=== PATIENT | male | born 1955 | race Caucasian/White ===

== ENCOUNTER 2016-10-26 08:26 | Inpatient (IN) ==
[2016-10-26] MEDS ORDERED: Ondansetron 4 MG/2 ML VIAL IVP PRN (10:56)
[2016-10-26] MEDS ORDERED: Acetaminophen 325 MG TABLET PO PRN (10:56)
[2016-10-26] MEDS ORDERED: Naloxone 0.4 MG/ML INJ IVP PRN (10:56)
[2016-10-26] MEDS ORDERED: 0.9 % Sodium Chloride 1,000 ML IVC SCH (11:00)
[2016-10-26] MEDS ORDERED: Acetylcysteine 10% 2 ML INHSOL IH SCH (11:00)
[2016-10-26] MEDS ORDERED: Ipratropium/Albuterol Neb 3 ML IH PRN (12:57)
--- NOTE | 2016-10-26 13:11 | Internal Med History&Physical ---
Date of Encounter: 10/26/16 Time of Encounter: 11:30 Assessment and Plan (1) Pneumonia Current visit: Yes Status: Acute patient completed a 7-day course of Levofloxacin as outpatient without any improvement of symptoms. CTA of chest revealed diffuse mucoid impaction in the right upper and lower lobes with right upper lower lobe bronchus narrowing and volume loss in the right upper lobe. IV ceftriaxone. albuterol/atrovent/mucomyst nebs mucinex pulmonology team consulted IV fluids. Qualifiers: Pneumonia type: due to unspecified organism Laterality: right Lung location: upper lobe of lung Qualified Code(s): J18.1 - Lobar pneumonia, unspecified organism (2) Mucus plugging of bronchi Current visit: Yes Status: Acute right upper and lower lobes. plan as above. (3) Acute hyponatremia Current visit: Yes Status: Acute Secondary to dehydration from infection +/- SIADH from PNA. IV fluids Close monitoring of sodium. Repeat BMP in the afternoon. Check osmolality, uric acid, urine sodium and urine osmolality. (4) COPD exacerbation Current visit: Yes Status: Acute mild albuterol/atrovent nebs. budesonide nebs IV ceftriaxone (5) HTN (hypertension) Current visit: Yes Status: Acute Adequate blood pressure. Holding home dose of lisinopril. Qualifiers: Hypertension type: essential hypertension Qualified Code(s): I10 - Essential (primary) hypertension Internal Medicine - H&P: HPI Chief complaint: Progressive shortness of breath and productive cough for one month. Admitted From: Home Plans for Post Hospital Care: Home History of present illness: Mr. Sierra is a 61 year old male with past medical history of COPD, and hypertension who has been dealing with some respiratory infection for the past month. He describes as a month ago she developed upper respiratory symptoms followed by productive cough and shortness of breath. 2 weeks ago. His primary care physician diagnosed him with pneumonia and he completed a 7 day treatment of levofloxacin. His symptoms persisted and he went today to [facility] where he had a CT angiography of the chest showing diffuse mucoid impaction in the right upper and lower lobes with right upper lower lobe bronchus narrowing and volume loss in the right upper lobe. WBC 13.7 330 sodium 126 potassium 4 chloride 91 glucose 118 B1 14 creatinine 0.86 albumin 3.8. Normal LFTs GFR 29 ABGs shows pH 7.4 a PCO2 39 PO2 73 EKG showed normal sinus rhythm heart rate 55. He was transferred to our hospital for pulmonology consultation and possible bronchoscopy. He also reports left-sided chest pain that started a week after having severe cough spells. Patient denies any fever, hemoptysis, and no pain, syncope, headache, urinary complaints, lower extremity edema, orthopnea, PND, headache or focal deficits. 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 Past Med Surg Social Fam HX - Past Medical History Medical history: COPD, hypertension Psychiatric history: no psych history - Social History Smoking Status: Former smoker Smokeless Tobacco Status: No Alcohol use: occasionally Drug use: none - Family History Mother Hx Family Cardiac Disorders: Yes (CHF) Hx Family Endocrine Disorder: Yes (DM) Internal Medicine - H&P: Meds Albuterol Sulfate [Albuterol Inhaler] 1 puff IH PRN PRN 11/04/15 [History] Digoxin [Lanoxin] 0.125 mg PO DAILY 11/04/15 [History] Guaifenesin [Mucinex] 600 mg PO BID 11/04/15 [History] Hydrochlorothiazide 25 mg PO DAILY 11/04/15 [History] Lisinopril [Zestril] 10 mg PO DAILY 11/04/15 [History] Naproxen [Naprosyn] 500 mg PO BID #30 tablet 11/04/15 [Rx] Doxycycline 100 mg PO BID #13 capsule 08/09/16 [Rx] Meloxicam [Meloxicam] 08/09/16 [History] PredniSONE 40 mg PO DAILY 4 Days 08/09/16 [Rx] Allergies No Known Allergies Allergy (Verified 11/04/15 13:15) All Systems PM: A 10-system review of systems was performed and is negative for pertinent findings except as documented above in the HPI. - Constitutional Vitals: Temp Pulse Resp BP Pulse Ox 98.4 F 90 18 122/80 95 10/26/16 10:35 10/26/16 10:35 10/26/16 10:35 10/26/16 10:35 10/26/16 10:35 General appearance: Present: cooperative, A&O X 3, pleasant, no acute distress, answers questions appropriately - Eye Eye exam: Present: PERRL. Absent: sclera anicteric - ENT ENT exam: Present: mucous membranes dry - Neck Neck exam general surgery: Present: supple, trachea midline. Absent: lymphadenopathy - Respiratory Respiratory exam: Present: decreased breath sounds, rhonchi, wheezes - Cardiovascular Cardiovascular exam: Present: RRR - GI/Abdominal GI/Abdominal exam: Present: normal bowel sounds, soft. Absent: distended, tenderness - Extremities Exam Extremities exam: Present: radial pulses palpable and symetrical. Absent: joint swelling, pedal edema - Back Exam Back exam: Absent: CVA tenderness (L), CVA tenderness (R) - Neurological Exam Neurological exam: Present: alert, oriented X3, no focal deficits, strengths equal and symetr throughout. Absent: facial droop, speech deficit - Skin Skin exam: Present: dry. Absent: rash
[2016-10-26] MEDS: Ipratropium/Albuterol Neb 3 ML IH SCH ×3 (13:18→20:52)
--- NOTE | 2016-10-26 15:10 | Pulmonology Consult Note ---
<Dolores Berry - Last Filed: 10/26/16 14:58> Date of Encounter: 10/26/16 Time of Encounter: 14:58 Assessment and Plan (1) Pneumonia Current Visit: Yes Status: Acute Pt was treated for pneumonia two weeks ago by PCP with levaquin and prednisone without relief of symptoms Scheduled bronchodilators Prednisone 40mg daily Will obtain sputum cultures Consult IR for thoracentesis for left pleural effusion CTA from outside facility revealed diffuse mucoid impaction in the right upper and lower lobes with right upper lower lobe bronchus narrowing and volume loss in the right upper lobe Troponin on initial blood work was normal, will obtain BNP and Echocardiogram Currently on IVF for hydration IV Ceftriaxone for antibiotic coverage Qualifiers: Pneumonia type: due to unspecified organism Laterality: right Lung location: upper lobe of lung Qualified Code(s): J18.1 - Lobar pneumonia, unspecified organism (2) COPD exacerbation Current Visit: Yes Status: Acute Scheduled Bronchodilators (3) Mucus plugging of bronchi Current Visit: Yes Status: Acute Due to mucus plugging of bronchi found on CTA at outside facility, will plan for bronchoscopy tomorrow Risks and benefits of bronchoscopy were discussed with pt and at bedside Will obtain consent for procedure (4) HTN (hypertension) Current Visit: Yes Status: Acute Management per primary team Qualifiers: Hypertension type: essential hypertension Qualified Code(s): I10 - Essential (primary) hypertension (5) DVT prophylaxis Current Visit: Yes Status: Acute History of Present Illness Consult date: 10/26/16 Requesting physician: Malena Isaac Reason for consult: COPD, pneumonia, pleural effusion Chief complaint: Shortness of Breath History of present illness: Mr. Sierra is a 61 year old male who has history of COPD, HTN, BPH, who presents from outside facility with left sided chest pain and shortness of breath. Pt reports he was diagnosed with pneumonia two weeks ago by his PCP at which time he was treated with Levaquin and prednisone. He states he was compliant with this medication regimen and had no relief of symptoms. He called his PCP one week ago due to not experiencing any improvement, a chest x- ray was ordered and no acute abnormalities were reported at that time. He states that the pain became more intense in the middle of the night rating it a constant 10/10 at which time he reported to the outside facility. Pt reports he continues to have a productive cough with thick yellow sputum, and left sided pain which extends from the front chest wall, around to the back. He also admits to pain just inferior to his rib cage. He is unable to take a deep breath due to pain with deep inspiration. Pt denies fever/chills, abdominal pain, nausea, vomiting, diarrhea, headache, weight loss/gain, or hemoptysis. Past Med Surg Social Fam HX - Past Medical History Medical history: COPD, hypertension Psychiatric history: no psych history - Social History Smoking Status: Former smoker Smokeless Tobacco Status: No Alcohol use: occasionally Drug use: none - Family History Mother Hx Family Cardiac Disorders: Yes (CHF) Hx Family Endocrine Disorder: Yes (DM) Medications and Allergies Hydrochlorothiazide 25 mg PO DAILY 11/04/15 [History] Lisinopril [Zestril] 10 mg PO DAILY 11/04/15 [History] Meloxicam [Meloxicam] 15 mg PO DAILY 08/09/16 [History] Albuterol Sulfate [Ventolin Hfa] 2 puff IH Q4H PRN 10/26/16 [History] Aspirin 81 mg PO DAILY 10/26/16 [History] Budesonide/Formoterol 160/4.5 [Symbicort 160/4.5] 2 puff IH BID 10/26/16 [ History] Doxazosin [Cardura] 4 mg PO HS 10/26/16 [History] Hydrocortisone 1% CREAM [Cortaid] 1 appl TP BID PRN 10/26/16 [History] Ipratropium/Albuterol Neb [Duoneb] 3 ml IH Q6HR PRN 10/26/16 [History] Omeprazole [PriLOSEC] 20 mg PO DAILY 10/26/16 [History] Allergies No Known Allergies Allergy (Verified 11/04/15 13:15) All Systems: A 10-system review of systems was performed and is negative for pertinent findings except as documented above in the HPI. - Constitutional Constitutional: no anorexia, no chills, no fever(s), no headache(s), no weight gain, no weight loss - EENT Eyes: no loss of vision Ears: no decreased hearing Nose, mouth and throat: sore throat (secondary to supplemental oxygen by nasal cannula), no dizziness, no hoarseness, no nasal discharge - Cardiovascular Cardiovascular: chest pain, no edema, no radiating jaw, neck or arm pain, no palpitations - Respiratory Respiratory: cough, wheezing, pain on inspirtation, no hemoptysis - Gastrointestinal Gastrointestinal: no abdominal pain, no diarrhea, no hematemesis, no melena, no nausea, no vomiting - Musculoskeletal Musculoskeletal: other (Pain over left rib cage, worse with movement and deep inspiration) - Integumentary Integumentary: no erythema, no jaundice - Neurological Neurological: no confusion, no convulsions, no numbness, no syncope, no tingling Physical Examination General appearance: no acute distress Eyes: nonicteric ENT: oropharynx moist Neck: supple Effort: mildly labored (Especially following movement) Auscultation: bilateral: wheezes, rhonchi Cardiovascular: regular rate and rhythm Gastrointestinal: normoactive bowel sounds, soft, non-distended Integumentary: normal Extremities: no cyanosis, no edema, no clubbing, pink and warm, pulses normal Musculoskeletal: no deformities normal mental status, non-focal exam mood appropriate, affect normal Results - Clinical Findings Intake & Output: Intake & Output 10/25/16 10/26/16 10/26/16 23:59 07:59 15:59 Output Total 600 / 600 Balance -600 / -600 Consult Discharge Plan - Plan Referrals: Mehrdad Diego MD [Primary Care Provider] - <Ck Ghosh W - Last Filed: 10/26/16 16:05> Date of Encounter: 10/26/16 All Systems: A 10-system review of systems was performed and is negative for pertinent findings except as documented above in the HPI. Results - Clinical Findings Intake & Output: Intake & Output 10/25/16 10/26/16 10/26/16 23:59 07:59 15:59 Intake Total 240 / 240 Output Total 600 / 600 Balance -360 / -360 - Attending Attestation I examined this patient and my medical decision-making was reviewed with the FOUNDRY HELPER/PA/Advanced Practice Nurse/Resident Physician. I agree with the documented findings, disposition and treatment plan as described except to the extent set forth below. 61yo with COPD with acute exacerbation presenting with pleuritic chest pain possibly s/t left pleural effusion (?parapnemonic) with concern for PNA. CTA negative for filling defects notable with mucous impaction, ?R Hilar soft tissue density with RUL bronchus narrowing, chronic changes of RU/RML bronchiectasis and b/l emphysematous changes. Patient has a remote history TB treated (for >1 year) in the past. Recs: Check blood/sputum cultures Also check BNP/ECHO cover empirically with ABx (Agumentin BID I see no reason that PO should not be sufficient) patient has already had >1 week coverage for atypical organisms BPT via (RT) [place]bs Q4-6- stop NAC Prednisone 40mg daily NPO at midnight for bronchoscopy Consult IR for U/S guided thoracentesis (pleural fluid studies have been ordered ) A bronchoscopy is recommended. The procedure , risks, benefits, complications, and expected outcomes have been reviewed. Benefits of diagnosis, as well as risks to include bleeding, infection, pneumothorax which may require surgical intervention, and in a small population. The patient is aware that sometimes test is nondiagnostic. Discussed with patient and agrees to proceed.
[2016-10-26] MEDS: Budesonide Neb 0.5 MG/2 ML IH SCH ×2 (15:22→20:52)
[2016-10-26 15:56] LABS: Total Protein 6.9 g/dL (6.0-8.3)
[2016-10-26 17:57] LABS: Sodium, Urine < 20.0 mEq/L
[2016-10-26 18:11] LABS: BUN/Creatinine Ratio 15 (6-26); Blood Urea Nitrogen 11 mg/dL (8-26); Calcium 9.5 mg/dL (8.6-10.8); Carbon Dioxide 24 mEq/L (19-29); Chloride 96 mEq/L (98-109); Glucose 131 mg/dL (70-99); Osmolality,Calculated 271 (280-300); Potassium 4.5 mEq/L (3.5-4.5); Sodium 130 mEq/L (136-145); eGFR For African Americans > 60 (> 60); eGFR For Non-African Americans > 60 (> 60)
[2016-10-26 18:34] LABS: Osmolality,Urine 254 mOsm/kg (300-1090)
[2016-10-27] MEDS: Ipratropium/Albuterol Neb 3 ML IH SCH ×6 (00:37→20:47)
[2016-10-27] MEDS: 0.9 % Sodium Chloride 1,000 ML IVC SCH ×4 (00:55→23:37)
[2016-10-27 04:52] LABS: Basophils % 0.1 %; Eosinophils % 0.1 %; Hematocrit 29.8 % (37.5-50.1); Hemoglobin 10.6 g/dL (12.9-16.9); Immature Granulocytes % 0.9 % (0-4); Lymphocytes % 7.1 %; Mean Corpuscular HGB Conc 35.6 g/dL (31.6-35.5); Mean Corpuscular Hemoglobin 34.1 pg (28.0-33.3); Mean Corpuscular Volume 95.8 fL (83.0-100.0); Mean Platelet Volume 9.3 fL (9.4-12.4); Monocytes % 7.1 %; Neutrophils # 11.5 K/mcL (1.6-8.9); Platelet Count 256 K/mcL (140-400); Red Blood Count 3.11 M/mcL (4.19-5.50); Red Cell Distribution Width 12.3 % (11.5-14.5); Segmented Neutrophils % 84.7 %
[2016-10-27 04:59] LABS: INR 1.1; Prothrombin Time 11.7 Seconds (9.4-12.1)
[2016-10-27 05:13] LABS: BUN/Creatinine Ratio 15 (6-26); Blood Urea Nitrogen 9 mg/dL (8-26); Calcium 8.9 mg/dL (8.6-10.8); Carbon Dioxide 23 mEq/L (19-29); Chloride 99 mEq/L (98-109); Glucose 116 mg/dL (70-99); Osmolality,Calculated 272 (280-300); Phosphorous 2.9 mg/dL (2.3-4.7); Sodium 131 mEq/L (136-145); eGFR For African Americans > 60 (> 60); eGFR For Non-African Americans > 60 (> 60)
--- NOTE | 2016-10-27 07:11 | Pulmonology Progress Note ---
<Manuel Crespo - Last Filed: 10/27/16 07:25> Date of Encounter: 10/27/16 Time of Encounter: 07:08 Assessment and Plan (1) Pneumonia Current Visit: Yes Status: Acute Patient treated as outpatient by PCP for suspected pneumonia with levaquin and prednisone x 2 weeks prior to admission. WBC this morning at 13.6, Vitals stable, borderline tachycardia, satting 96% on 2L Exam revealed diffuse wheezing ad thick rhonchi bilaterally. Continue with antibiotics, breathing treatments, and steroids. Recommend Augmentin due to added benefit of anaerobic coverage in respiratory tract. Qualifiers: Pneumonia type: due to unspecified organism Laterality: right Lung location: upper lobe of lung Qualified Code(s): J18.1 - Lobar pneumonia, unspecified organism (2) COPD exacerbation Current Visit: Yes Status: Acute COPD exacerbation likely secondary to pneumonia vs mucus plug. Continue per plan in assessment above (3) Mucus plugging of bronchi Current Visit: Yes Status: Acute CTA done at [place] revealed diffuse mucoid impaction in right upper and lower lobes with riht upper lower lobe bronchus narrowing and volume loss in the right upper lobe. Proceed with bronchoscopy Subjective Principal diagnosis: Pneumonia, COPD exacerbation, Mucus plug Interval history: Patient reports doing well overnight. Patient reports improved breathing/ decreased shortness of breath throughout the evening and improving cough. Denies fevers, chills, sweats, headache, dizziness, changes in vision or hearing , nausea, vomiting, chest pain, abdominal pain, changes in bowels or bladder, weakness, or loss of sensation. Objective PUL Vital signs: Last Vital Signs Temp 98.2 F 10/27/16 03:28 Pulse 93 10/27/16 03:28 Resp 20 10/27/16 04:37 BP 132/84 10/27/16 03:28 Pulse Ox 96 10/27/16 04:37 General appearance: alert Eyes: nonicteric ENT: oropharynx moist Neck: supple, no lymphadenopathy, no JVD Effort: mildly labored Auscultation: bilateral: wheezes, rhonchi Cardiovascular: regular rate and rhythm Gastrointestinal: normoactive bowel sounds, soft, non-tender, non-distended Integumentary: normal Extremities: no cyanosis, no edema, no clubbing, pink and warm, pulses normal Musculoskeletal: no deformities, ROM normal Gait: normal posture normal mental status, pupils equal and round, CN II-XII normal, motor strength normal and symmetric mood appropriate, affect normal Results - Laboratory Findings CBC and BMP: 10/27/16 03:43 10/27/16 03:43 PT/INR, D-dimer PT 11.7 Seconds (9.4-12.1) 10/27/16 03:43 Abnormal lab findings: Abnormal lab results WBC 13.6 K/mcL (4.3-11.1) H 10/27/16 03:43 RBC 3.11 M/mcL (4.19-5.50) L 10/27/16 03:43 Hgb 10.6 g/dL (12.9-16.9) L 10/27/16 03:43 Hct 29.8 % (37.5-50.1) L 10/27/16 03:43 MCH 34.1 pg (28.0-33.3) H 10/27/16 03:43 MCHC 35.6 g/dL (31.6-35.5) H 10/27/16 03:43 MPV 9.3 fL (9.4-12.4) L 10/27/16 03:43 Neutrophils # 11.5 K/mcL (1.6-8.9) H 10/27/16 03:43 Sodium 131 mEq/L (136-145) L 10/27/16 03:43 Creatinine 0.60 mg/dL (0.72-1.25) L 10/27/16 03:43 Glucose 116 mg/dL (70-99) H 10/27/16 03:43 Serum Osmolality 273 mOsm/kg (280-300) L 10/26/16 17:42 Calculated Osmolality 272 (280-300) L 10/27/16 03:43 Lactate Dehydrogenase 85 Units/L (159-327) L 10/26/16 15:10 Urine Osmolality 254 mOsm/kg (300-1090) L 10/26/16 17:34 - Clinical Findings Intake & Output: Intake & Output 10/26/16 10/26/16 10/27/16 15:59 23:59 07:59 Intake Total 340 / 340 Output Total 600 / 600 Balance -260 / -260 Weight 81.647 kg 80.5 kg Consult Discharge Plan - Plan Referrals: Mehrdad Diego MD [Primary Care Provider] - <Ck Ghosh W - Last Filed: 10/27/16 09:26> Date of Encounter: 10/27/16 Objective PUL Vital signs: Last Vital Signs Temp 97.9 F 10/27/16 07:00 Pulse 88 10/27/16 07:00 Resp 16 10/27/16 07:53 BP 142/84 10/27/16 07:00 Pulse Ox 95 10/27/16 07:53 Results - Laboratory Findings CBC and BMP: 10/27/16 03:43 10/27/16 03:43 PT/INR, D-dimer PT 11.7 Seconds (9.4-12.1) 10/27/16 03:43 Abnormal lab findings: Abnormal lab results WBC 13.6 K/mcL (4.3-11.1) H 10/27/16 03:43 RBC 3.11 M/mcL (4.19-5.50) L 10/27/16 03:43 Hgb 10.6 g/dL (12.9-16.9) L 10/27/16 03:43 Hct 29.8 % (37.5-50.1) L 10/27/16 03:43 MCH 34.1 pg (28.0-33.3) H 10/27/16 03:43 MCHC 35.6 g/dL (31.6-35.5) H 10/27/16 03:43 MPV 9.3 fL (9.4-12.4) L 10/27/16 03:43 Neutrophils # 11.5 K/mcL (1.6-8.9) H 10/27/16 03:43 Sodium 131 mEq/L (136-145) L 10/27/16 03:43 Creatinine 0.60 mg/dL (0.72-1.25) L 10/27/16 03:43 Glucose 116 mg/dL (70-99) H 10/27/16 03:43 Serum Osmolality 273 mOsm/kg (280-300) L 10/26/16 17:42 Calculated Osmolality 272 (280-300) L 10/27/16 03:43 Lactate Dehydrogenase 85 Units/L (159-327) L 10/26/16 15:10 Urine Osmolality 254 mOsm/kg (300-1090) L 10/26/16 17:34 - Clinical Findings Intake & Output: Intake & Output 10/26/16 10/27/16 10/27/16 23:59 07:59 15:59 Weight 81.647 kg 80.5 kg - Attending Attestation I examined this patient and my medical decision-making was reviewed with the CATEGORY DIRECTOR/PA/Advanced Practice Nurse/Resident Physician. I agree with the documented findings, disposition and treatment plan as described except to the extent set forth below. 1. CAP 2. Chronic Bronchiectasis with mucous plugging 3. COPD with acute exacerbation 4. Left Pleural Effusion Recs: 1. Would cover with broader anaerobic coverage pending pleural fluid studies ( consider Augmentin PO BID) 2. Cont airway clearance plan for bronch today 3. Cont BD's and enteral steroids 4. S/p Thoracentesis. f/u pleural fluid studies/cytology
[2016-10-27] MEDS: Budesonide Neb 0.5 MG/2 ML IH SCH ×2 (07:51→20:47)
[2016-10-27 10:33] LABS: Appearance of Body Fluid Cloudy (Clear); Volume of Body Fluid 100 mL
[2016-10-27] MEDS: predniSONE 20 MG TABLET PO SCH (10:36)
[2016-10-27] MEDS ORDERED: Lidocaine Viscous Oral Soln 15 ML SOLUTION ONE (10:52)
[2016-10-27] MEDS ORDERED: *HR* FentaNYL (PF) 100 MCG/2 ML VIAL ONE (10:52)
[2016-10-27] MEDS ORDERED: *HR* Midazolam HCl 5 MG/5 ML VIAL IVP ONE (10:52)
[2016-10-27] MEDS ORDERED: *HR* EPINEPHrine 1 MG/10 ML SYRINGE INTRATRACH PRN (10:53)
[2016-10-27] MEDS ORDERED: Tetracaine/Benzocaine/Butamben 200MG/SPRAY (100SPY/BOT) MM ONE (10:53)
[2016-10-27] MEDS ORDERED: Lidocaine Viscous Oral Soln 15 ML SOLUTION MM ONE (10:53)
--- NOTE | 2016-10-27 10:53 | Pre-Sedation Evaluation ---
Pre-sedation evaluation - Pre-sedation checklist Date of procedure: 10/27/16 Procedure: Bronchoscopy Recent Vitals: Last Vital Signs Temp 97.9 F 10/27/16 07:00 Pulse 88 10/27/16 07:00 Resp 16 10/27/16 07:53 BP 142/84 10/27/16 07:00 Pulse Ox 95 10/27/16 07:53 H&P (including ROS) documented in medical record: Yes Previous reaction to sedatives/anesthetics: No Dietary Status: NPO after Midnight Airway Assessment: Patient can open mouth completely, TMJ function normal Dentition: No loose teeth or bridges Possible difficult airway: Yes If Yes;: Enlarged neck circumference, short neck ASA Classification *see protocol: CLASS II-Mild systemic disease Plan of Care: Pt appropriate candidate for procedure/moderate/conscious sedation , Risks/benefits of procedure/sedation discussed w/ patient/family
[2016-10-27] MEDS ORDERED: 0.9 % Sodium Chloride 1,000 ML IVC SCH (11:00)
--- NOTE | 2016-10-27 11:05 | IR Procedure Note ---
Date of procedure: 10/27/16 Consent Obtained: Written consent Timeout: Correct patient and procedure verified, Correct site verified, Time out performed, Skin prep completed Indications: lt effusion Procedure Performed: thoracentesis Site/Technique: left Results/Findings: bloody effusion Estimated blood loss (cc): 0 Complications: None; Tolerated procedure well Post Procedure Treatment Plan: CXR
[2016-10-27] MEDS: *HR* FentaNYL (PF) 100 MCG/2 ML VIAL IVP PRN ×2 (11:32→18:57)
[2016-10-27] MEDS: *HR* Midazolam HCl 5 MG/5 ML VIAL IVP PRN ×2 (11:32→18:52)
--- NOTE | 2016-10-27 14:01 | Internal Med Progress Note ---
Date of Encounter: 10/27/16 Time of Encounter: 10:00 - Assessment and plan (1) Mucus plugging of bronchi Current Visit: Yes Status: Acute Assessment and plan: Neurology on board, plan is for bronchoscopy with BAL later today. Failed outpatient therapy. (2) Pneumonia Current Visit: Yes Status: Acute Assessment and plan: Continue Rocephin and add Augmentin per pulmonology recommendations. Plan is for thoracentesis followed by bronchoscopy with BAL later today. Failed outpatient therapy with Levaquin and prednisone. Mild leukocytosis noted. Vital signs stable with mild tachycardia. He is stable on 2 L per nasal cannula. Continue ceftriaxone with the addition of Augmentin per pulmonology recommendations. Pulmonology and IR both on board. Qualifiers: Pneumonia type: due to unspecified organism Laterality: right Lung location: upper lobe of lung Qualified Code(s): J18.1 - Lobar pneumonia, unspecified organism (3) Pleural effusion Current Visit: Yes Status: Acute Assessment and plan: IR onboard- plan is for thoracentesis later today. (4) Acute hyponatremia Current Visit: Yes Status: Chronic Assessment and plan: Chronic since 2014. Also associated with hyperosmolality, patient with poor by mouth intake secondary to ongoing pneumonia/mucous plugging. We will continue to advance his diet as he tolerates. (5) COPD exacerbation Current Visit: Yes Status: Acute (6) DVT prophylaxis Current Visit: Yes Status: Acute Assessment and plan: Subcutaneous heparin ordered (7) HTN (hypertension) Current Visit: Yes Status: Chronic Assessment and plan: Controlled, will continue to trend and adjust medications as indicated. Qualifiers: Hypertension type: essential hypertension Qualified Code(s): I10 - Essential (primary) hypertension (8) Former tobacco use Current Visit: Yes Status: Chronic - Subjective Interval history: Patient seen and examined prior to his procedures. On examination, patient is sitting upright in bed. Patient alert and oriented 3 and states he is not currently in any pain. He states he is not really short of breath unless he gets up from his bed. He denies concerns or questions regarding his upcoming procedures. - Constitutional Vitals: Temp Pulse Resp BP Pulse Ox 97.6 F 96 16 138/88 94 L 10/27/16 12:48 10/27/16 12:48 10/27/16 12:48 10/27/16 12:48 10/27/16 12:48 General appearance: Present: cooperative, A&O X 3, pleasant, no acute distress, answers questions appropriately - Head Head exam: Present: atraumatic, normocephalic - Eye Eye exam: Present: PERRL, conjuntiva pink, sclera anicteric Pupils: Present: PERRL - Neck Neck exam general surgery: Present: supple, trachea midline. Absent: lymphadenopathy - Respiratory Respiratory exam: Present: accessory muscle use, decreased breath sounds, rhonchi, wheezes. Absent: rales, respiratory distress - Cardiovascular Cardiovascular exam: Present: RRR, +S1, +S2. Absent: diastolic murmur, gallop, rubs, systolic murmur - GI/Abdominal GI/Abdominal exam: Present: normal bowel sounds, soft, no peritoneal signs. Absent: distended, tenderness - Extremities Exam Extremities exam: Present: warm, radial pulses palpable and symetrical. Absent : calf tenderness, cyanotic, pedal edema - Neurological Exam Neurological exam: Present: alert, CN II-XII intact, oriented X3, no focal deficits, strengths equal and symetr throughout. Absent: pronater drift, facial droop, speech deficit - Skin Skin exam: Present: dry, intact, pallor, warm Internal Medicine: Result - Labs CBC & Chem 7: 10/27/16 03:43 10/27/16 03:43 Labs: Short CBC 10/27/16 Range/Units 03:43 WBC 13.6 H (4.3-11.1) K/mcL Hgb 10.6 L (12.9-16.9) g/dL Hct 29.8 L (37.5-50.1) % Plt Count 256 (140-400) K/mcL Neutrophils # 11.5 H (1.6-8.9) K/mcL BMP 10/26/16 10/27/16 17:42 03:43 Sodium 130 L 131 L Potassium 4.5 4.0 Chloride 96 L 99 Carbon Dioxide 24 23 BUN 11 9 Creatinine 0.71 L 0.60 L Glucose 131 H 116 H Calcium 9.5 8.9 - ABG Interpretation ABG results: PT/INR, D-dimer PT 11.7 Seconds (9.4-12.1) 10/27/16 03:43 - Impressions Impressions Thoracentesis Ultrasound 10/27/16 14:55 IMPRESSION: Successful ultrasound guided thoracentesis. Small amount of left bloody effusion. D/ / 10/27/2016 11:17:15 Shira Galloway MD / eliud Interpreting Provider: Shira Galloway MD Consult Discharge Plan - Plan Referrals: Mehrdad Diego MD [Primary Care Provider] -
[2016-10-27] MEDS: *HR* HYDROcodone/Acet 5/325 mg TABLET PO PRN ×2 (15:43→23:35)
[2016-10-27 15:50] LABS: Source of Body Fluid bal rt middle lobe; Source of Body Fluid rt upper lobe bal
[2016-10-27] MEDS: *HR* Heparin 5,000 UNIT/ML VIAL SQ SCH (18:55)
[2016-10-27 20:46] LABS: Appearance of Body Fluid Hazy (Clear)
[2016-10-27 20:47] LABS: Volume of Body Fluid 25 mL
[2016-10-27 21:05] LABS: Appearance of Body Fluid Hazy (Clear); Volume of Body Fluid 35 mL
[2016-10-27] MEDS ORDERED: Lactulose Oral Soln 20 GM/30 ML UDC PO PRN (23:43)
[2016-10-28] MEDS: Ipratropium/Albuterol Neb 3 ML IH SCH ×7 (00:10→23:49)
[2016-10-28] MEDS ORDERED: Lactulose Oral Soln 20 GM/30 ML UDC PO PRN (00:11)
[2016-10-28] MEDS: 0.9 % Sodium Chloride 1,000 ML IVC SCH ×2 (02:30→13:39)
[2016-10-28 04:10] LABS: Basophils # 0.1 K/mcL (0.0-0.2); Basophils % 0.6 %; Eosinophils # 0.2 K/mcL (0.0-0.6); Eosinophils % 1.5 %; Hematocrit 28.8 % (37.5-50.1); Immature Granulocytes % 0.8 % (0-4); Lymphocytes # 1.7 K/mcL (0.6-4.6); Lymphocytes % 13.7 %; Mean Corpuscular HGB Conc 34.7 g/dL (31.6-35.5); Mean Corpuscular Hemoglobin 33.8 pg (28.0-33.3); Mean Corpuscular Volume 97.3 fL (83.0-100.0); Mean Platelet Volume 9.3 fL (9.4-12.4); Monocytes % 7.8 %; Neutrophils # 9.4 K/mcL (1.6-8.9); Platelet Count 252 K/mcL (140-400); Red Blood Count 2.96 M/mcL (4.19-5.50); Red Cell Distribution Width 12.3 % (11.5-14.5); Segmented Neutrophils % 75.6 %
[2016-10-28 04:28] LABS: BUN/Creatinine Ratio 15 (6-26); Blood Urea Nitrogen 12 mg/dL (8-26); Calcium 8.9 mg/dL (8.6-10.8); Carbon Dioxide 25 mEq/L (19-29); Chloride 102 mEq/L (98-109); Glucose 90 mg/dL (70-99); Osmolality,Calculated 277 (280-300); Potassium 4.1 mEq/L (3.5-4.5); Sodium 134 mEq/L (136-145); eGFR For African Americans > 60 (> 60); eGFR For Non-African Americans > 60 (> 60)
[2016-10-28] MEDS: *HR* Heparin 5,000 UNIT/ML VIAL SQ SCH ×2 (06:35→17:17)
--- NOTE | 2016-10-28 07:29 | Pulmonology Progress Note ---
<AugieCk W - Last Filed: 10/28/16 08:52> Objective PUL Vital signs: Last Vital Signs Temp 97.6 F 10/28/16 07:11 Pulse 80 10/28/16 07:11 Resp 17 10/28/16 07:11 BP 149/92 10/28/16 07:11 Pulse Ox 95 10/28/16 07:11 Results - Laboratory Findings CBC and BMP: 10/28/16 03:22 10/28/16 03:22 PT/INR, D-dimer PT 11.7 Seconds (9.4-12.1) 10/27/16 03:43 Abnormal lab findings: Abnormal lab results WBC 12.4 K/mcL (4.3-11.1) H 10/28/16 03:22 RBC 2.96 M/mcL (4.19-5.50) L 10/28/16 03:22 Hgb 10.0 g/dL (12.9-16.9) L 10/28/16 03:22 Hct 28.8 % (37.5-50.1) L 10/28/16 03:22 MCH 33.8 pg (28.0-33.3) H 10/28/16 03:22 MPV 9.3 fL (9.4-12.4) L 10/28/16 03:22 Neutrophils # 9.4 K/mcL (1.6-8.9) H 10/28/16 03:22 Sodium 134 mEq/L (136-145) L 10/28/16 03:22 Serum Osmolality 273 mOsm/kg (280-300) L 10/26/16 17:42 Calculated Osmolality 277 (280-300) L 10/28/16 03:22 Lactate Dehydrogenase 85 Units/L (159-327) L 10/26/16 15:10 Urine Osmolality 254 mOsm/kg (300-1090) L 10/26/16 17:34 Fluid Appearance Hazy (Clear) A 10/27/16 15:48 - Microbiology Findings Microbiology Findings: Microbiology, Last 48 Hours 10/26/16 22:50 Respiratory Culture - Preliminary Aspirate Normal upper respiratory tract amarilis. No apparent pathogens isolated. 10/27/16 09:03 Body Fluid Culture - Preliminary Pleural Fluid 10/27/16 15:48 Gram Stain - Preliminary Right Upper Lobe Lung 10/27/16 15:48 Gram Stain - Preliminary Right Middle Lobe Lung - Clinical Findings Intake & Output: Intake & Output 10/27/16 10/28/16 10/28/16 23:59 07:59 15:59 Intake Total 1640 / 1640 Balance 1640 / 1640 Weight 83.1 kg Consult Discharge Plan - Plan Referrals: Mehrdad Diego MD [Primary Care Provider] - - Attending Attestation I examined this patient and my medical decision-making was reviewed with the PLANT [employer] ENGINEER/PA/Advanced Practice Nurse/Resident Physician. I agree with the documented findings, disposition and treatment plan as described except to the extent set forth below. Impression 1. PNA s/p Bronch with diffuse thick mucoid secretions (with plugging) worse in RU/RML. 2. COPD exacerbation 3. Left Pleural Effusion Recs: 1. Continue antibiotics would treat for total 8 days with Augmentin pending cultrures. Repeat CT scan in 4 weeks with Pulmonary outpatient f/u 2. Cont Enteral Steroids taper over two weeks. Cont Symbicort BID at discharge start Tiotropium daily (18mcg) cont nebulizers/JENNIFER PRN 3. Exudative likely Complicated parapneumonic effusion pending cytology. Adequately drained by thoracentesis yesterday <Dolores Berry - Last Filed: 10/28/16 10:55> Date of Encounter: 10/28/16 Time of Encounter: 06:50 Assessment and Plan (1) Pneumonia Current Visit: Yes Status: Acute Pt treated as outpatient by PCP for suspected pneumonia with Levaquin and Prednisone prior to admission WBC:12.4 (13.6 yesterday) Continue antibiotic coverage-recommend Augmentin Continue with breathing treatments and steroids Ultrasound guided thoracentesis was performed yesterday showing with small amount of left bloody effusion Qualifiers: Pneumonia type: due to unspecified organism Laterality: right Lung location: upper lobe of lung Qualified Code(s): J18.1 - Lobar pneumonia, unspecified organism (2) COPD exacerbation Current Visit: Yes Status: Acute COPD exacerbation likely secondary to pneumonia vs mucous plug (3) Mucus plugging of bronchi Current Visit: Yes Status: Acute CTA done at outside facility demosntrated diffuse mucoid impaction in right upper and lower lobes with right upper lower lobe bronchus narrowing and volume loss in the right upper lobe Bronchoscopy yesterday Bronchoscopy demosntrated RUL and RML pneumonia, Acute mucosal inflammation visualized in upper trachea, mid trachea, lower trachea and scottie, Edema in RUP and RML, Mucoid secretions found in RUL and RML, Acute mucosal inflammation in left mainstem bronchus, LUE, LLL, and notable secretions in VANGIE and LLL (4) HTN (hypertension) Current Visit: Yes Status: Chronic Qualifiers: Hypertension type: essential hypertension Qualified Code(s): I10 - Essential (primary) hypertension (5) DVT prophylaxis Current Visit: Yes Status: Acute Heparin SQ Subjective Principal diagnosis: Pneumonia, COPD exacerbation, Mucus plug Interval history: Pt resting comfortably in bed on room air. He reports continued shortness of breath and pain in the left chest and flank, especially with coughing and movement. Objective PUL Vital signs: Last Vital Signs Temp 97.6 F 10/28/16 07:11 Pulse 80 10/28/16 07:11 Resp 17 10/28/16 07:11 BP 149/92 10/28/16 07:11 Pulse Ox 95 10/28/16 07:11 General appearance: no acute distress Eyes: nonicteric ENT: oropharynx moist Neck: supple Auscultation: bilateral: wheezes Cardiovascular: regular rate and rhythm Gastrointestinal: normoactive bowel sounds, soft, non-distended Integumentary: normal Extremities: no cyanosis, no edema, no clubbing, pink and warm, pulses normal Musculoskeletal: no deformities, other (TTP in muscle bodies just inferior to the left rib cage, TTP over left chest wall from front around to back) non-focal exam mood appropriate, affect normal Results - Laboratory Findings CBC and BMP: 10/28/16 03:22 10/28/16 03:22 PT/INR, D-dimer PT 11.7 Seconds (9.4-12.1) 10/27/16 03:43 Abnormal lab findings: Abnormal lab results WBC 12.4 K/mcL (4.3-11.1) H 10/28/16 03:22 RBC 2.96 M/mcL (4.19-5.50) L 10/28/16 03:22 Hgb 10.0 g/dL (12.9-16.9) L 10/28/16 03:22 Hct 28.8 % (37.5-50.1) L 10/28/16 03:22 MCH 33.8 pg (28.0-33.3) H 10/28/16 03:22 MPV 9.3 fL (9.4-12.4) L 10/28/16 03:22 Neutrophils # 9.4 K/mcL (1.6-8.9) H 10/28/16 03:22 Sodium 134 mEq/L (136-145) L 10/28/16 03:22 Serum Osmolality 273 mOsm/kg (280-300) L 10/26/16 17:42 Calculated Osmolality 277 (280-300) L 10/28/16 03:22 Lactate Dehydrogenase 85 Units/L (159-327) L 10/26/16 15:10 Urine Osmolality 254 mOsm/kg (300-1090) L 10/26/16 17:34 Fluid Appearance Hazy (Clear) A 10/27/16 15:48 - Microbiology Findings Microbiology Findings: Microbiology, Last 48 Hours 10/26/16 22:50 Respiratory Culture - Preliminary Aspirate Normal upper respiratory tract amarilis. No apparent pathogens isolated. 10/27/16 09:03 Body Fluid Culture - Preliminary Pleural Fluid 10/27/16 15:48 Gram Stain - Preliminary Right Upper Lobe Lung 10/27/16 15:48 Gram Stain - Preliminary Right Middle Lobe Lung - Clinical Findings Intake & Output: Intake & Output 10/27/16 10/27/16 10/28/16 15:59 23:59 07:59 Intake Total 950 / 950 1640 / 1640 Balance 950 / 950 1640 / 1640 Weight 83.1 kg
[2016-10-28] MEDS: predniSONE 20 MG TABLET PO SCH (07:46)
[2016-10-28] MEDS: *HR* HYDROcodone/Acet 5/325 mg TABLET PO PRN ×2 (07:46→20:22)
--- NOTE | 2016-10-28 09:36 | Internal Med Progress Note ---
Date of Encounter: 10/28/16 Time of Encounter: 08:45 - Assessment and plan (1) Mucus plugging of bronchi Current Visit: Yes Status: Acute Assessment and plan: S/p Bronchoscopy per Pulmonology yesterday. Patient stating his shortness of breath has resolved and feels he is close to his baseline regarding respiratory status. He is currently on room air and tolerating it well. BAL studies pending. ITS Impressions Thoracentesis Ultrasound 10/27/16 14:55 IMPRESSION: Successful ultrasound guided thoracentesis. Small amount of left bloody effusion. D/ / 10/27/2016 11:17:15 Shira Galloway MD / eliud Interpreting Provider: Shira Galloway MD Chest X-Ray 10/28/16 06:38 IMPRESSION: Small left pleural effusion and bibasilar atelectasis. D/ / Rubin Whitt MD / Rubin Whitt MD Interpreting Provider: Rubin Whitt MD (2) LUQ abdominal pain Current Visit: Yes Status: Acute Assessment and plan: acute onset this am. Severe and burning in quality. Negative Kehr's sign. No palpable spleen noted on examination. Right upper quadrant of his abdomen very tender to touch. Inferior rib cage is not tender. Patient stated the pain is constant and states he is "scared because something bad must be wrong." Not related to by mouth intake. Epigastric area nontender. Will rule out splenic etiology although low suspicion. Will also check LFTs and lipase. If abdominal CT unremarkable, will trial GI cocktail. (3) Pneumonia Current Visit: Yes Status: Acute Assessment and plan: Continue Augmentin. Patient now on room air and tolerating it well. Status post thoracentesis with 150 mL of sanguinous fluid received. Status post bronchoscopy with bronchial alveolar lavage. BAL studies pending. Mild leukocytosis trending down. Vital signs stable; tachycardia resolving. Patient stating he feels as if he is at his baseline regarding his respiratory status. His biggest concern right now is his left upper quadrant abdominal pain. Pulmonology on board. Qualifiers: Pneumonia type: due to unspecified organism Laterality: right Lung location: upper lobe of lung Qualified Code(s): J18.1 - Lobar pneumonia, unspecified organism (4) Pleural effusion Current Visit: Yes Status: Acute Assessment and plan: IR onboard yesterday and performed a thoracentesis. Chest x-ray this morning revealing small left-sided pleural effusion. ITS Impressions Thoracentesis Ultrasound 10/27/16 14:55 IMPRESSION: Successful ultrasound guided thoracentesis. Small amount of left bloody effusion. D/ / 10/27/2016 11:17:15 Shira Galloway MD / eliud Interpreting Provider: Shira Galloway MD Chest X-Ray 10/28/16 06:38 IMPRESSION: Small left pleural effusion and bibasilar atelectasis. D/ / Rubin Whitt MD / Rubin Whitt MD Interpreting Provider: Rubin Whitt MD (5) Acute hyponatremia Current Visit: Yes Status: Chronic Assessment and plan: Chronic since 2014. Also associated with hyperosmolality, patient with poor by mouth intake secondary to ongoing pneumonia/mucous plugging. He is currently tolerating a regular diet and his hypo-osmolality and hyponatremia are improving (6) COPD exacerbation Current Visit: Yes Status: Acute Assessment and plan: Appears resolved, patient now denies shortness of breath above his norm. (7) DVT prophylaxis Current Visit: Yes Status: Acute Assessment and plan: Subcutaneous heparin ordered (8) HTN (hypertension) Current Visit: Yes Status: Chronic Assessment and plan: Controlled, will continue to trend and adjust medications as indicated. Qualifiers: Hypertension type: essential hypertension Qualified Code(s): I10 - Essential (primary) hypertension (9) Former tobacco use Current Visit: Yes Status: Chronic - Subjective Interval history: Patient seen and examined. On examination, patient is sitting upright in his chair eating breakfast. Patient stating his shortness of breath has improved. He currently complains of left upper quadrant abdominal pain he rates as severe and feels like a "fire." Patient stating he is eating well but is concerned about the pain to his abdomen. - Constitutional Vitals: Temp Pulse Resp BP Pulse Ox 97.6 F 80 17 149/92 95 10/28/16 07:11 10/28/16 07:11 10/28/16 07:11 10/28/16 07:11 10/28/16 07:11 General appearance: Present: cooperative, A&O X 3, pleasant, no acute distress, answers questions appropriately - Head Head exam: Present: atraumatic, normocephalic - Eye Eye exam: Present: PERRL, conjuntiva pink, sclera anicteric Pupils: Present: PERRL - Neck Neck exam general surgery: Present: supple, trachea midline. Absent: lymphadenopathy - Respiratory Respiratory exam: Present: decreased breath sounds (fair to good aeration), rhonchi. Absent: accessory muscle use, rales, respiratory distress, wheezes - Cardiovascular Cardiovascular exam: Present: RRR, +S1, +S2. Absent: diastolic murmur, gallop, rubs, systolic murmur - GI/Abdominal GI/Abdominal exam: Present: distended, normal bowel sounds, soft, tenderness ( LUQ), no peritoneal signs - Extremities Exam Extremities exam: Present: warm, radial pulses palpable and symetrical. Absent : calf tenderness, cyanotic, pedal edema - Neurological Exam Neurological exam: Present: alert, CN II-XII intact, normal gait, oriented X3, no focal deficits, strengths equal and symetr throughout. Absent: pronater drift, facial droop, speech deficit - Skin Skin exam: Present: dry, intact, pallor, warm Internal Medicine: Result - Labs CBC & Chem 7: 10/28/16 03:22 10/28/16 03:22 Labs: Short CBC 10/28/16 Range/Units 03:22 WBC 12.4 H (4.3-11.1) K/mcL Hgb 10.0 L (12.9-16.9) g/dL Hct 28.8 L (37.5-50.1) % Plt Count 252 (140-400) K/mcL Neutrophils # 9.4 H (1.6-8.9) K/mcL BMP 10/28/16 03:22 Sodium 134 L Potassium 4.1 Chloride 102 Carbon Dioxide 25 BUN 12 Creatinine 0.81 Glucose 90 Calcium 8.9 - ABG Interpretation ABG results: PT/INR, D-dimer PT 11.7 Seconds (9.4-12.1) 10/27/16 03:43 - Impressions Impressions Thoracentesis Ultrasound 10/27/16 14:55 IMPRESSION: Successful ultrasound guided thoracentesis. Small amount of left bloody effusion. D/ / 10/27/2016 11:17:15 Shira Galloway MD / eliud Interpreting Provider: Shira Galloway MD Chest X-Ray 10/28/16 06:38 IMPRESSION: Small left pleural effusion and bibasilar atelectasis. D/ / Rubin Whitt MD / Rubin Whitt MD Interpreting Provider: Rubin Whitt MD Consult Discharge Plan - Plan Referrals: Mehrdad Diego MD [Primary Care Provider] -
[2016-10-28 10:29] LABS: INR 1.1; Prothrombin Time 11.9 Seconds (9.4-12.1)
[2016-10-28 10:41] LABS: Albumin 3.4 g/dL (3.5-5.0); Albumin/Globulin Ratio 1.1 (1.1-2.2); Bilirubin,Direct 0.3 mg/dL (0.0-0.5); Bilirubin,Indirect 0.4 mg/dL (0.0-1.2); Bilirubin,Total 0.7 mg/dL (0.2-1.2); Total Protein 6.4 g/dL (6.0-8.3)
[2016-10-28] MEDS: Budesonide Neb 0.5 MG/2 ML IH SCH ×2 (11:05→20:09)
[2016-10-28] MEDS: *HR* Morphine 2 MG/ML SYRINGE IVP PRN (13:38)
[2016-10-29] MEDS: 0.9 % Sodium Chloride 1,000 ML IVC SCH ×3 (00:21→20:07)
[2016-10-29] MEDS: *HR* Morphine 2 MG/ML SYRINGE IVP PRN ×2 (00:24→08:04)
[2016-10-29] MEDS: Ipratropium/Albuterol Neb 3 ML IH SCH ×5 (04:10→20:50)
[2016-10-29 04:16] LABS: Basophils # 0.1 K/mcL (0.0-0.2); Basophils % 0.7 %; Eosinophils # 0.3 K/mcL (0.0-0.6); Eosinophils % 3.3 %; Hematocrit 30.1 % (37.5-50.1); Hemoglobin 10.4 g/dL (12.9-16.9); Immature Granulocytes % 0.4 % (0-4); Lymphocytes # 2.4 K/mcL (0.6-4.6); Mean Corpuscular HGB Conc 34.6 g/dL (31.6-35.5); Mean Corpuscular Hemoglobin 33.8 pg (28.0-33.3); Mean Corpuscular Volume 97.7 fL (83.0-100.0); Mean Platelet Volume 9.3 fL (9.4-12.4); Monocytes # 0.7 K/mcL (0.0-1.3); Neutrophils # 6.6 K/mcL (1.6-8.9); Platelet Count 279 K/mcL (140-400); Red Blood Count 3.08 M/mcL (4.19-5.50); Red Cell Distribution Width 12.2 % (11.5-14.5); Segmented Neutrophils % 64.6 %
[2016-10-29] MEDS: *HR* HYDROcodone/Acet 5/325 mg TABLET PO PRN (06:45)
[2016-10-29] MEDS: *HR* Heparin 5,000 UNIT/ML VIAL SQ SCH ×2 (06:46→17:43)
--- NOTE | 2016-10-29 07:38 | Pulmonology Progress Note ---
Date of Encounter: 10/29/16 Time of Encounter: 07:35 Assessment and Plan (1) Pneumonia Current Visit: Yes Status: Acute Cultures negative thus far cont Augmentin pending culture results would treat for 10days total consider probiotics while on abx therapy Qualifiers: Pneumonia type: due to unspecified organism Laterality: right Lung location: upper lobe of lung Qualified Code(s): J18.1 - Lobar pneumonia, unspecified organism (2) Mucus plugging of bronchi Current Visit: Yes Status: Acute s/t Bronch Cultures negative thus far cont ABx repeat CT scan in 4 weeks at d/c with Pulmonary F/u (3) COPD exacerbation Current Visit: Yes Status: Acute cont enteral steroids taper over two weeks cont BD's 4-6 hours PRN cont ICS/LABA BID and LAMA daily OOBTC ambulation as tolerated (4) DVT prophylaxis Current Visit: Yes Status: Acute cont chemical dvt prophylaxis while inpatient (5) LUQ abdominal pain Current Visit: Yes Status: Acute with 5cm mass recommend General Surgery Consult for further eval and possible biopsy (6) Pleural effusion Current Visit: Yes Status: Acute s/p Thoracentesis. Appears exudative parapneumonic effusion No micro growth cytology pending Subjective Principal diagnosis: Pneumonia, COPD exacerbation, Mucus plug Interval history: Still with significant epigastric abdominal Pain states that breathing continues to improve Objective PUL Vital signs: Last Vital Signs Temp 97.6 F 10/29/16 03:41 Pulse 75 10/29/16 03:41 Resp 16 10/29/16 04:10 BP 164/94 10/29/16 03:41 Pulse Ox 94 L 10/29/16 04:10 General appearance: no acute distress ENT: oropharynx moist Neck: supple Effort: normal Auscultation: bilateral: rhonchi (scattered rhonchi no wheeze ) Cardiovascular: regular rate and rhythm Gastrointestinal: normoactive bowel sounds, tender, other (palpable mass over LUQ an area of ecchymoses over LLQ ) Extremities: no edema Musculoskeletal: no deformities normal mental status, non-focal exam mood appropriate Results - Laboratory Findings CBC and BMP: 10/29/16 03:33 10/28/16 03:22 PT/INR, D-dimer PT 11.9 Seconds (9.4-12.1) 10/28/16 10:05 Abnormal lab findings: Abnormal lab results RBC 3.08 M/mcL (4.19-5.50) L 10/29/16 03:33 Hgb 10.4 g/dL (12.9-16.9) L 10/29/16 03:33 Hct 30.1 % (37.5-50.1) L 10/29/16 03:33 MCH 33.8 pg (28.0-33.3) H 10/29/16 03:33 MPV 9.3 fL (9.4-12.4) L 10/29/16 03:33 Sodium 134 mEq/L (136-145) L 10/28/16 03:22 Serum Osmolality 273 mOsm/kg (280-300) L 10/26/16 17:42 Calculated Osmolality 277 (280-300) L 10/28/16 03:22 Lactate Dehydrogenase 85 Units/L (159-327) L 10/26/16 15:10 Albumin 3.4 g/dL (3.5-5.0) L 10/28/16 10:05 Urine Osmolality 254 mOsm/kg (300-1090) L 10/26/16 17:34 Fluid Appearance Hazy (Clear) A 10/27/16 15:48 - Microbiology Findings Microbiology Findings: Microbiology, Last 48 Hours 10/26/16 22:50 Respiratory Culture - Final Aspirate Normal upper respiratory tract amarilis. No apparent pathogens isolated. 10/27/16 15:48 Respiratory Culture - Final Right Middle Lobe Lung Normal upper respiratory tract amarilis. No apparent pathogens isolated. 10/27/16 15:48 Respiratory Culture - Final Right Upper Lobe Lung Normal upper respiratory tract amarilis. No apparent pathogens isolated. 10/27/16 09:03 Body Fluid Culture - Preliminary Pleural Fluid 10/27/16 15:48 Acid Fast Stain - Final Right Upper Lobe Lung 10/27/16 15:48 Acid Fast Stain - Final Right Middle Lobe Lung 10/27/16 09:03 Acid Fast Stain - Final Pleural Fluid 10/27/16 15:48 Gram Stain - Preliminary Right Upper Lobe Lung 10/27/16 15:48 Gram Stain - Preliminary Right Middle Lobe Lung - Diagnostic Findings Additional studies: CT ABd/Pelvis: 5cm soft tissue mass seen between the aterolateral 8th and 9th ribs tin focus of air withing th subQ Fat of the anterior abdominal wall - Clinical Findings Intake & Output: Intake & Output 02/05/0610/28/16 10/29/16 15:59 23:59 07:59 Intake Total 2240 / 2240 1840 / 1840 Output Total 450 / 450 Balance 2240 / 2240 1390 / 1390 Weight 82.282 kg Consult Discharge Plan - Plan Referrals: Mehrdad Diego MD [Primary Care Provider] -
[2016-10-29] MEDS: Budesonide Neb 0.5 MG/2 ML IH SCH (07:42)
[2016-10-29] MEDS: Tiotropium 18 MCG inhalation IH SCH (07:42)
[2016-10-29] MEDS: predniSONE 20 MG TABLET PO SCH (08:06)
[2016-10-29] MEDS ORDERED: *HR* Promethazine 25 MG/ML VIAL IVP PRN (08:46)
[2016-10-29] MEDS ORDERED: Ondansetron 4 MG/2 ML VIAL IVP PRN (08:46)
--- NOTE | 2016-10-29 08:47 | Internal Med Progress Note ---
Date of Encounter: 10/29/16 Time of Encounter: 08:15 - Assessment and plan (1) LUQ abdominal pain Current Visit: Yes Status: Acute Assessment and plan: Patient stating his pain is severe. He complains of severe pain and burning to his left upper quadrant. On examination, patient with palpable mass to his left posterior/lateral area on the lower portion of his rib cage. There is no ecchymosis to his left lower quadrant that is new. He is hemodynamically stable and coag studies are pending. Repeat abdominal CT with contrast this morning stat. Nothing by mouth. Surgery on board- spoke to Dr Patterson who will see the patient today. Possible concern for complications secondary to thoracentesis. Abdomen is distended and firm with hypoactive bowel sounds. Patient stating he had diarrhea yesterday but has not moved his bowels yet today. Abdominal CT without contrast from yesterday revealing soft tissue mass of unknown etiology at this time, repeat with contrast pending. Pain medications increased. ITS Impressions Thoracentesis Ultrasound 10/27/16 14:55 IMPRESSION: Successful ultrasound guided thoracentesis. Small amount of left bloody effusion. D/ / 10/27/2016 11:17:15 Shira Galloway MD / eliud Interpreting Provider: Shira Galloway MD Chest X-Ray 10/28/16 06:38 IMPRESSION: Small left pleural effusion and bibasilar atelectasis. D/ / Rubin Whitt MD / Rubin Whitt MD Interpreting Provider: Rubin Whitt MD Abdomen/Pelvis CT 10/28/16 10:15 cross-section. There is impression by the mass on peritoneal fat within the left upper quadrant. No definite rib fracture or erosion seen. Asymmetric edema is seen of the subcutaneous fat of the left flank. Left L5 pars defect. IMPRESSION: 5 cm soft tissue mass is seen between the anterolateral left 8th and 9th ribs. Hematoma, phlegmon, or soft tissue neoplasm are considerations. Correlate with history and physical examination. Small left pleural effusion and left basilar atelectasis. Tiny focus of air within the subcutaneous fat of the anterior abdominal wall to the left of midline. Some considerations include recent medication injection or sequela of recent trauma, less likely infection. D/ / Rubin Whitt MD / Rubin Whitt MD Interpreting Provider: Rubin Whitt MD 10/28/16 acute onset this am. Severe and burning in quality. Negative Kehr's sign. No palpable spleen noted on examination. Right upper quadrant of his abdomen very tender to touch. Inferior rib cage is not tender. Patient stated the pain is constant and states he is "scared because something bad must be wrong." Not related to by mouth intake. Epigastric area nontender. Will rule out splenic etiology although low suspicion. Will also check LFTs and lipase. If abdominal CT unremarkable, will trial GI cocktail. (2) Mucus plugging of bronchi Current Visit: Yes Status: Resolved Assessment and plan: S/p Bronchoscopy per Pulmonology 2 days ago. Patient stating his shortness of breath has resolved and feels he is at his baseline regarding respiratory status. He is currently on room air and tolerating it well. BAL studies pending- negative thus far. Will continue Augmentin for 10 days per Pulm recbrice. PAtient to have repeat chest CT 4 weeks post discharge and followup outpatient with Pulmonology. ITS Impressions Thoracentesis Ultrasound 10/27/16 14:55 IMPRESSION: Successful ultrasound guided thoracentesis. Small amount of left bloody effusion. D/ / 10/27/2016 11:17:15 Shira Galloway MD / eliud Interpreting Provider: Shira Galloway MD Chest X-Ray 10/28/16 06:38 IMPRESSION: Small left pleural effusion and bibasilar atelectasis. D/ / Rubin Whitt MD / Rubin Whitt MD Interpreting Provider: Rubin Whitt MD (3) Pneumonia Current Visit: Yes Status: Acute Assessment and plan: Continue Augmentin. Patient now on room air and tolerating it well. Status post thoracentesis with 150 mL of sanguinous fluid received. Status post bronchoscopy with bronchial alveolar lavage. BAL studies pending but negative thus far. Mild leukocytosis resolved. Patient stating he feels as if he is at his baseline regarding his respiratory status. His biggest concern right now is his left upper quadrant abdominal pain. Pulmonology on board. Surgery now onboard as well. Qualifiers: Pneumonia type: due to unspecified organism Laterality: right Lung location: upper lobe of lung Qualified Code(s): J18.1 - Lobar pneumonia, unspecified organism (4) Pleural effusion Current Visit: Yes Status: Acute Assessment and plan: IR onboard 2 days ago and performed a thoracentesis. Chest x-ray yesterday revealing small left-sided pleural effusion. Patient denies shortness of breath. ITS Impressions Thoracentesis Ultrasound 10/27/16 14:55 IMPRESSION: Successful ultrasound guided thoracentesis. Small amount of left bloody effusion. D/ / 10/27/2016 11:17:15 Shira Galloway MD / eliud Interpreting Provider: Shira Galloway MD Chest X-Ray 10/28/16 06:38 IMPRESSION: Small left pleural effusion and bibasilar atelectasis. D/ / Rubin Whitt MD / Rubin Whitt MD Interpreting Provider: Rubin Whitt MD (5) Acute hyponatremia Current Visit: Yes Status: Chronic Assessment and plan: Chronic since 2014. Also associated with hyperosmolality, patient with poor by mouth intake secondary to ongoing pneumonia/mucous plugging. He is currently tolerating a regular diet and his hypo-osmolality and hyponatremia are improving. NPO at this point pending further evaluation. Cont IVF. (6) COPD exacerbation Current Visit: Yes Status: Resolved Assessment and plan: Appears resolved, patient now denies shortness of breath above his norm. (7) DVT prophylaxis Current Visit: Yes Status: Acute Assessment and plan: Subcutaneous heparin ordered; will hold if coags are abnl. (8) HTN (hypertension) Current Visit: Yes Status: Chronic Assessment and plan: Uncontrolled at this time and associated with tachycardia, patient currently complaining of severe pain. We will address his pain and will continue to trend and adjust medications as indicated. Qualifiers: Hypertension type: essential hypertension Qualified Code(s): I10 - Essential (primary) hypertension (9) Former tobacco use Current Visit: Yes Status: Chronic - Subjective Interval history: Patient seen and examined. On examination, patient ambulating back from bathroom with an upright and steady gait. Patient complaining of severe left flank pain and severe left upper quadrant abdominal pain. He denies shortness of breath. - Constitutional Vitals: Temp Pulse Resp BP Pulse Ox 98.1 F 100 16 162/100 95 10/29/16 08:11 10/29/16 08:11 10/29/16 08:11 10/29/16 08:11 10/29/16 08:11 General appearance: Present: cooperative, mild distress (moderate 2/2 pain), A& O X 3, pleasant, answers questions appropriately - Head Head exam: Present: atraumatic, normocephalic - Eye Eye exam: Present: PERRL, conjuntiva pink, sclera anicteric Pupils: Present: PERRL - Neck Neck exam general surgery: Present: supple, trachea midline. Absent: lymphadenopathy - Respiratory Respiratory exam: Present: CTAB. Absent: accessory muscle use, rales, respiratory distress, rhonchi, wheezes - Cardiovascular Cardiovascular exam: Present: RRR, +S1, +S2. Absent: diastolic murmur, gallop, rubs, systolic murmur - GI/Abdominal GI/Abdominal exam: Present: distended, firm, guarding, hypoactive bowel sounds, soft, tenderness (diffuse; worse LUQ), no peritoneal signs Additional comments: ecchymosis to LLQ - Extremities Exam Extremities exam: Present: warm, radial pulses palpable and symetrical. Absent : calf tenderness, cyanotic, pedal edema - Neurological Exam Neurological exam: Present: alert, CN II-XII intact, normal gait, oriented X3, no focal deficits, strengths equal and symetr throughout. Absent: pronater drift, facial droop, speech deficit - Skin Skin exam: Present: dry, intact, pallor, warm Internal Medicine: Result - Labs CBC & Chem 7: 10/29/16 03:33 10/28/16 03:22 Labs: Short CBC 10/29/16 Range/Units 03:33 WBC 10.1 (4.3-11.1) K/mcL Hgb 10.4 L (12.9-16.9) g/dL Hct 30.1 L (37.5-50.1) % Plt Count 279 (140-400) K/mcL Neutrophils # 6.6 (1.6-8.9) K/mcL Liver Function 10/28/16 Range/Units 10:05 Total Bilirubin 0.7 (0.2-1.2) mg/dL Direct Bilirubin 0.3 (0.0-0.5) mg/dL AST 17 (5-34) Units/L ALT 20 (0-55) Units/L Alkaline Phosphatase 59 (38-126) Units/L Albumin 3.4 L (3.5-5.0) g/dL - ABG Interpretation ABG results: PT/INR, D-dimer PT 11.9 Seconds (9.4-12.1) 10/28/16 10:05 - Impressions Impressions Abdomen/Pelvis CT 10/28/16 10:15 cross-section. There is impression by the mass on peritoneal fat within the left upper quadrant. No definite rib fracture or erosion seen. Asymmetric edema is seen of the subcutaneous fat of the left flank. Left L5 pars defect. IMPRESSION: 5 cm soft tissue mass is seen between the anterolateral left 8th and 9th ribs. Hematoma, phlegmon, or soft tissue neoplasm are considerations. Correlate with history and physical examination. Small left pleural effusion and left basilar atelectasis. Tiny focus of air within the subcutaneous fat of the anterior abdominal wall to the left of midline. Some considerations include recent medication injection or sequela of recent trauma, less likely infection. D/ / Rubin Whitt MD / Rubin Whitt MD Interpreting Provider: Rubin Whitt MD Consult Discharge Plan - Plan Referrals: Mehrdad Diego MD [Primary Care Provider] -
[2016-10-29 09:12] LABS: INR 1.1
[2016-10-29 09:14] LABS: Activated Partial Thrombo Time 32.9 Seconds (26.0-36.0)
[2016-10-29] MEDS: *HR* HYDROmorphone (PF) 1 MG/ML SYRINGE IVP PRN ×3 (09:25→20:05)
--- NOTE | 2016-10-29 10:56 | General Surgery Consult Note ---
<CheriseKahlil briones Charmaine - Last Filed: 10/29/16 13:22> Date of Encounter: 10/29/16 Time of Encounter: 10:15 Assessment and Plan (1) Soft tissue mass Current Visit: Yes Status: Acute Patient is a 61-year-old male with history of hypertension, COPD who initially presented on 10/26/2016, with complaints of shortness of breath and productive cough. Since admission the patient has undergone bronchoscopy for mucous plugging and thoracentesis due to pleural effusion. Over the last several weeks the patient has progressively worsening epigastric pain. Patient states that it initially started as a sharp stabbing pain that was worse with movement, and over the last several days it is transitioned to a dull ache. He also reports a lump on the left side of his chest that has been gradually increasing in size. He does report several severe coughing fits at home that resulted in left-sided chest pain. He denies any nausea, vomiting, hematemesis. Patient does report constipation and has been using stool softeners for this. He states he did have a bowel movement yesterday. He states he did not look at it so does not know its character or color. He denies any history of abdominal surgery. Past medical history: COPD, hypertension Past surgical history: Unremarkable Family history: Mother with heart failure and diabetes Social history: Former smoker, occasional alcohol use Medications: Doxazosin 4 mg by mouth daily at bedtime Symbicort 160/4.52 puffs twice a day Albuterol 2 puffs every 4 when necessary DuoNeb 3 mL q6h when necessary Omeprazole 20 mg by mouth daily Aspirin 81 mg by mouth daily Meloxicam 15 mg by mouth daily Lisinopril 10 mg by mouth daily Hydrochlorothiazide 25 mg by mouth daily Review of systems: 10 point review of systems was performed and was negative other than stated in history of present illness. Physical exam: General: Patient is awake, alert, oriented 3, sitting up in the chair, no acute distress. Lungs: Clear to auscultation bilaterally, slightly diminished in the left lung base. No rales, rhonchi, wheezes. Heart: Regular rate and rhythm, no murmurs, rubs, gallops. Chest: On the left lateral chest there is a focal mass that is palpable. Approximately 6 cm in length, is nontender to palpation. It is not fluctuant , there is no overlying erythema, ulceration, induration, drainage. Abdomen: There are hyperactive bowel sounds. Abdomen is mildly distended and firm, but not rigid. There is moderate tenderness to palpation in the epigastric region with voluntary guarding. There is no rebound tenderness. Ecchymosis is noted to the left lower flank. Assessment and plan: This is a 61-year-old male with history of COPD who was recently admitted and is undergoing treatment for pneumonia which included antibiotics, recent bronchoscopy and thoracentesis. General surgery was consulted for left sided mass and abdominal pain. CT of the abdomen with IV contrast was obtained and reveals a soft tissue "mass" which likely reflects hematoma within the muscular layers between the ribs, however neoplasm cannot be entirely excluded. There is no evidence of rib fracture. There does not appear to be any acute intra-abdominal pathology at this time. Patient's vital signs and lab work are stable. No indication for surgical intervention at this time. We would recommend further evaluation of this "mass" seen on CT to exclude neoplasm with biopsy. Given proximity to thoracic structures, surgical biopsy would best be performed by cardiothoracic surgery if indicated. Percutaneous needle biopsy is also an option, further management per primary team. Thank you for the consultation, please call with any questions. History of Present Illness Reason for consult: abdominal pain Past Med Surg Social Fam HX - Past Medical History Medical history: COPD, hypertension Psychiatric history: no psych history - Social History Smoking Status: Former smoker Smokeless Tobacco Status: No Alcohol use: occasionally Drug use: none - Family History Mother Hx Family Cardiac Disorders: Yes (CHF) Hx Family Endocrine Disorder: Yes (DM) Medications and Allergies Hydrochlorothiazide 25 mg PO DAILY 11/04/15 [History] Lisinopril [Zestril] 10 mg PO DAILY 11/04/15 [History] Meloxicam 15 mg PO DAILY 08/09/16 [History] Albuterol Sulfate [Ventolin Hfa] 2 puff IH Q4H PRN 10/26/16 [History] Aspirin 81 mg PO DAILY 10/26/16 [History] Budesonide/Formoterol 160/4.5 [Symbicort 160/4.5] 2 puff IH BID 10/26/16 [ History] Doxazosin [Cardura] 4 mg PO HS 10/26/16 [History] Hydrocortisone 1% CREAM [Cortaid] 1 appl TP BID PRN 10/26/16 [History] Ipratropium/Albuterol Neb [Duoneb] 3 ml IH Q6HR PRN 10/26/16 [History] Omeprazole [PriLOSEC] 20 mg PO DAILY 10/26/16 [History] Amoxicillin/Clavulanate [Augmentin] 875 mg PO BIDWM #14 tablet 10/30/16 [Rx] GuaiFENesin ER [Mucinex] 600 mg PO BID #14 tbbp.12hr 10/30/16 [Rx] Oxycodone HCl 10 mg PO Q6H PRN #25 tab 10/30/16 [Rx] PredniSONE 10 mg PO DAILY #41 tablet 10/30/16 [Rx] Simethicone [Gas-X] 80 mg PO TID PRN #30 tab.chew 10/30/16 [Rx] Tiotropium [Spiriva] 18 mcg IH DAILY@0700 #1 inh 10/30/16 [Rx] Allergies No Known Allergies Allergy (Verified 11/04/15 13:15) Review of Systems All systems PM: A 10-system review of systems was performed and is negative for pertinent findings except as documented above in the HPI. General Surgery Exam Initial Vital Signs Temp Pulse Resp BP Pulse Ox 98.4 F 90 18 122/80 95 10/26/16 10:35 10/26/16 10:35 10/26/16 10:35 10/26/16 10:35 10/26/16 10:35 Exam Initial Vital Signs Temp Pulse Resp BP Pulse Ox 98.4 F 90 18 122/80 95 10/26/16 10:35 10/26/16 10:35 10/26/16 10:35 10/26/16 10:35 10/26/16 10:35 Results - Labs 10/29/16 03:33 10/28/16 03:22 Abnormal lab results RBC 3.08 M/mcL (4.19-5.50) L 10/29/16 03:33 Hgb 10.4 g/dL (12.9-16.9) L 10/29/16 03:33 Hct 30.1 % (37.5-50.1) L 10/29/16 03:33 MCH 33.8 pg (28.0-33.3) H 10/29/16 03:33 MPV 9.3 fL (9.4-12.4) L 10/29/16 03:33 Sodium 134 mEq/L (136-145) L 10/28/16 03:22 Serum Osmolality 273 mOsm/kg (280-300) L 10/26/16 17:42 Calculated Osmolality 277 (280-300) L 10/28/16 03:22 Lactate Dehydrogenase 85 Units/L (159-327) L 10/26/16 15:10 Albumin 3.4 g/dL (3.5-5.0) L 10/28/16 10:05 Urine Osmolality 254 mOsm/kg (300-1090) L 10/26/16 17:34 Fluid Appearance Hazy (Clear) A 10/27/16 15:48 Diabetes panel 10/28/16 Range/Units 10:05 AST 17 (5-34) Units/L ALT 20 (0-55) Units/L Alkaline Phosphatase 59 (38-126) Units/L Albumin 3.4 L (3.5-5.0) g/dL Calcium panel 10/28/16 Range/Units 10:05 Albumin 3.4 L (3.5-5.0) g/dL Adrenal panel 10/28/16 Range/Units 10:05 Total Bilirubin 0.7 (0.2-1.2) mg/dL AST 17 (5-34) Units/L ALT 20 (0-55) Units/L Alkaline Phosphatase 59 (38-126) Units/L Albumin 3.4 L (3.5-5.0) g/dL All other labs normal. Consult Discharge Plan - Plan Instructions: Decongestant/Expectorant (By mouth), Prednisone (By mouth), Simethicone (By mouth), Amoxicillin/Clavulanate Potassium (By mouth), Oxycodone , Rapid Release (By mouth), Tiotropium (By breathing), Pneumonia (DC), Pneumonia (GEN) Additional Instructions: Follow-up with primary care provider as scheduled, follow-up with cardiothoracic surgery as instructed. Follow up with pulmonology in 4 weeks Referrals: [facility] [Provider Group] - 12/07/16 11:15 am Luis Dozier MD [Partnered Physician] - (Cardio will be calling with an appointment time and date. Thank you! ) Mehrdad Diego MD [Primary Care Provider] - 11/02/16 9:30 am Prescriptions: Amoxicillin/Clavulanate [Augmentin] 875 mg PO BIDWM #14 tablet GuaiFENesin ER [Mucinex] 600 mg PO BID #14 tbbp.12hr Oxycodone HCl 10 mg PO Q6H PRN #25 tab PRN Reason: Pain PredniSONE 10 mg PO DAILY #41 tablet Simethicone [Gas-X] 80 mg PO TID PRN #30 tab.chew PRN Reason: dyspepsia Tiotropium [Spiriva] 18 mcg IH DAILY@0700 #1 inh <Subhash Patterson M - Last Filed: 10/30/16 10:26> Review of Systems All systems PM: A 10-system review of systems was performed and is negative for pertinent findings except as documented above in the HPI. General Surgery Exam Initial Vital Signs Temp Pulse Resp BP Pulse Ox 98.4 F 90 18 122/80 95 10/26/16 10:35 10/26/16 10:35 10/26/16 10:35 10/26/16 10:35 10/26/16 10:35 Exam Initial Vital Signs Temp Pulse Resp BP Pulse Ox 98.4 F 90 18 122/80 95 10/26/16 10:35 10/26/16 10:35 10/26/16 10:35 10/26/16 10:35 10/26/16 10:35 Results - Labs 10/30/16 03:42 10/30/16 03:42 Abnormal lab results RBC 3.34 M/mcL (4.19-5.50) L 10/30/16 03:42 Hgb 11.4 g/dL (12.9-16.9) L 10/30/16 03:42 Hct 32.1 % (37.5-50.1) L 10/30/16 03:42 MCH 34.1 pg (28.0-33.3) H 10/30/16 03:42 MPV 8.8 fL (9.4-12.4) L 10/30/16 03:42 PT 12.3 Seconds (9.4-12.1) H 10/30/16 03:42 Sodium 134 mEq/L (136-145) L 10/30/16 03:42 Creatinine 0.60 mg/dL (0.72-1.25) L 10/30/16 03:42 Glucose 100 mg/dL (70-99) H 10/30/16 03:42 Serum Osmolality 273 mOsm/kg (280-300) L 10/26/16 17:42 Calculated Osmolality 277 (280-300) L 10/30/16 03:42 Lactate Dehydrogenase 85 Units/L (159-327) L 10/26/16 15:10 Albumin 3.4 g/dL (3.5-5.0) L 10/28/16 10:05 Urine Osmolality 254 mOsm/kg (300-1090) L 10/26/16 17:34 Fluid Appearance Hazy (Clear) A 10/27/16 15:48 Diabetes panel 10/30/16 Range/Units 03:42 Sodium 134 L (136-145) mEq/L Potassium 3.7 (3.5-4.5) mEq/L Chloride 99 (98-109) mEq/L Carbon Dioxide 26 (19-29) mEq/L BUN 10 (8-26) mg/dL Creatinine 0.60 L (0.72-1.25) mg/dL Glucose 100 H (70-99) mg/dL Calcium 9.4 (8.6-10.8) mg/dL Calcium panel 10/30/16 Range/Units 03:42 Calcium 9.4 (8.6-10.8) mg/dL Pituitary panel 10/30/16 Range/Units 03:42 Sodium 134 L (136-145) mEq/L Potassium 3.7 (3.5-4.5) mEq/L Chloride 99 (98-109) mEq/L Carbon Dioxide 26 (19-29) mEq/L BUN 10 (8-26) mg/dL Creatinine 0.60 L (0.72-1.25) mg/dL Glucose 100 H (70-99) mg/dL Calcium 9.4 (8.6-10.8) mg/dL Adrenal panel 10/30/16 Range/Units 03:42 Sodium 134 L (136-145) mEq/L Potassium 3.7 (3.5-4.5) mEq/L Chloride 99 (98-109) mEq/L Carbon Dioxide 26 (19-29) mEq/L BUN 10 (8-26) mg/dL Creatinine 0.60 L (0.72-1.25) mg/dL Glucose 100 H (70-99) mg/dL Calcium 9.4 (8.6-10.8) mg/dL All other labs normal. - Attending Attestation This is a delayed note: the patient was seen and examined. I have discussed this patient's care with Dr Bill. I agree with the dictated assessment and treatment plan outlined by Dr Bill. The radiographs were personally reviewed with [facility]. A CT-A of the chest was completed 10/26/2016 at [facility]. This imaging predates any invasive procedures performed at [facility]. These radiographs demonstrate presence of the intercostal mass with possible hemorrhage. This may be due to the pateint's severe, intractable cough v an inflammatory or neoplastic process. The repeat CTs demonstrated no obvious intra abdominal or pelvic pathology for which Surgery was consulted. These findings were discussed with Dana Rodríguez on 2016.
[2016-10-29] MEDS: Simethicone 80 MG TAB.CHEW PO SCH ×2 (15:02→20:06)
[2016-10-29] MEDS: hydroCHLOROthiazide 25 MG TABLET PO SCH (16:22)
[2016-10-29] MEDS: Budesonide/Formoterol 160/4.5 MDI IH SCH (20:50)
[2016-10-30] MEDS: Ipratropium/Albuterol Neb 3 ML IH SCH ×4 (00:33→10:38)
[2016-10-30] MEDS: *HR* HYDROmorphone (PF) 1 MG/ML SYRINGE IVP PRN (01:20)
[2016-10-30 04:12] LABS: Basophils # 0.1 K/mcL (0.0-0.2); Basophils % 0.7 %; Eosinophils # 0.3 K/mcL (0.0-0.6); Eosinophils % 3.4 %; Hematocrit 32.1 % (37.5-50.1); Hemoglobin 11.4 g/dL (12.9-16.9); Immature Granulocytes % 0.6 % (0-4); Lymphocytes % 20.4 %; Mean Corpuscular HGB Conc 35.5 g/dL (31.6-35.5); Mean Corpuscular Hemoglobin 34.1 pg (28.0-33.3); Mean Corpuscular Volume 96.1 fL (83.0-100.0); Mean Platelet Volume 8.8 fL (9.4-12.4); Monocytes # 0.7 K/mcL (0.0-1.3); Monocytes % 6.6 %; Neutrophils # 6.7 K/mcL (1.6-8.9); Platelet Count 290 K/mcL (140-400); Red Blood Count 3.34 M/mcL (4.19-5.50); Red Cell Distribution Width 12.1 % (11.5-14.5); Segmented Neutrophils % 68.3 %
[2016-10-30 04:17] LABS: INR 1.1; Prothrombin Time 12.3 Seconds (9.4-12.1)
[2016-10-30 04:28] LABS: BUN/Creatinine Ratio 17 (6-26); Blood Urea Nitrogen 10 mg/dL (8-26); Calcium 9.4 mg/dL (8.6-10.8); Carbon Dioxide 26 mEq/L (19-29); Chloride 99 mEq/L (98-109); Glucose 100 mg/dL (70-99); Osmolality,Calculated 277 (280-300); Potassium 3.7 mEq/L (3.5-4.5); Sodium 134 mEq/L (136-145); eGFR For African Americans > 60 (> 60); eGFR For Non-African Americans > 60 (> 60)
[2016-10-30] MEDS: *HR* Heparin 5,000 UNIT/ML VIAL SQ SCH (06:18)
[2016-10-30] MEDS: 0.9 % Sodium Chloride 1,000 ML IVC SCH (06:19)
[2016-10-30 07:24] VITALS: BP 156/99
[2016-10-30] MEDS: hydroCHLOROthiazide 25 MG TABLET PO SCH (07:34)
[2016-10-30] MEDS: Simethicone 80 MG TAB.CHEW PO SCH (07:34)
[2016-10-30] MEDS: predniSONE 20 MG TABLET PO SCH (07:34)
[2016-10-30] MEDS: *HR* HYDROcodone/Acet 5/325 mg TABLET PO PRN (07:35)
[2016-10-30] MEDS: Budesonide/Formoterol 160/4.5 MDI IH SCH (07:42)
[2016-10-30] MEDS: Tiotropium 18 MCG inhalation IH SCH (07:44)
--- NOTE | 2016-10-30 09:39 | Discharge Summary ---
Date of Encounter: 10/30/16 Time of Encounter: 08:15 - Discharge Diagnosis (1) LUQ abdominal pain Priority: Primary Status: Acute Comments: Abdominal and pelvic CT negative for acute processes. Palpable mass to left posterior/lateral area of the lower portion of his rib cage. Associated with left lower quadrant ecchymosis that is new onset. He remained hemodynamically stable with unremarkable coagulation studies. Seen and evaluated by surgery who recommends outpatient biopsy per cardiothoracic surgery. No acute processes or surgical interventions indicated. We will send home with pain medicine and have him follow up closely outpatient. Of note, this mass was noted on imaging prior to the patient's procedures performed while inpatient here. (2) Mucus plugging of bronchi Priority: Primary Status: Resolved Comments: Status post bronchoscopy with bronchial alveolar lavage. Cultures unremarkable. Follow-up 3-4 weeks with pulmonology (3) Pneumonia Priority: Primary Status: Acute Comments: Continue Augmentin for a 10 day course per pulmonology recommendations. Patient has tolerated room air and has denied shortness of breath above his norm. Status post thoracentesis with 150 mL of sanguinous fluid received. Status post bronchoscopy with bronchial alveolar lavage. BAL studies negative thus far. Mild leukocytosis resolved. Patient stating he feels as if he is at his baseline regarding his respiratory status. His biggest concern right now is his left upper quadrant abdominal pain. Pulmonology cleared him for outpatient follow-up Qualifiers: Pneumonia type: due to unspecified organism Laterality: right Lung location: upper lobe of lung Qualified Code(s): J18.1 - Lobar pneumonia, unspecified organism (4) Pleural effusion Priority: Primary Status: Resolved (5) Acute hyponatremia Priority: Secondary Status: Chronic Comments: Chronic since 2014. Also associated with hypoosmolality, patient with poor by mouth intake secondary to ongoing pneumonia/mucous plugging. He is currently tolerating a regular diet and his hypo-osmolality and hyponatremia have improved ; follow up outpatient. (6) COPD exacerbation Priority: Primary Status: Resolved (7) DVT prophylaxis Priority: Primary Status: Acute Comments: Subcutaneous heparin while admitted (8) HTN (hypertension) Priority: Secondary Status: Chronic Comments: Hypertensive at times however improved with resumption of his home antihypertensive medications and with pain control. Recommend daily blood pressure checks at home, and following up outpatient. Qualifiers: Hypertension type: essential hypertension Qualified Code(s): I10 - Essential (primary) hypertension (9) Former tobacco use Priority: Secondary Status: Chronic - Discharge Medications Prescriptions: Amoxicillin/Clavulanate [Augmentin] 875 mg PO BIDWM #14 tablet GuaiFENesin ER [Mucinex] 600 mg PO BID #14 tbbp.12hr Oxycodone HCl 10 mg PO Q6H PRN #25 tab PRN Reason: Pain PredniSONE 10 mg PO DAILY #41 tablet Simethicone [Gas-X] 80 mg PO TID PRN #30 tab.chew PRN Reason: dyspepsia Tiotropium [Spiriva] 18 mcg IH DAILY@0700 #1 inh Home Medications: Hydrochlorothiazide 25 mg PO DAILY 11/04/15 [History] Lisinopril [Zestril] 10 mg PO DAILY 11/04/15 [History] Meloxicam 15 mg PO DAILY 08/09/16 [History] Albuterol Sulfate [Ventolin Hfa] 2 puff IH Q4H PRN 10/26/16 [History] Aspirin 81 mg PO DAILY 10/26/16 [History] Budesonide/Formoterol 160/4.5 [Symbicort 160/4.5] 2 puff IH BID 10/26/16 [ History] Doxazosin [Cardura] 4 mg PO HS 10/26/16 [History] Hydrocortisone 1% CREAM [Cortaid] 1 appl TP BID PRN 10/26/16 [History] Ipratropium/Albuterol Neb [Duoneb] 3 ml IH Q6HR PRN 10/26/16 [History] Omeprazole [PriLOSEC] 20 mg PO DAILY 10/26/16 [History] Amoxicillin/Clavulanate [Augmentin] 875 mg PO BIDWM #14 tablet 10/30/16 [Rx] GuaiFENesin ER [Mucinex] 600 mg PO BID #14 tbbp.12hr 10/30/16 [Rx] Oxycodone HCl 10 mg PO Q6H PRN #25 tab 10/30/16 [Rx] PredniSONE 10 mg PO DAILY #41 tablet 10/30/16 [Rx] Simethicone [Gas-X] 80 mg PO TID PRN #30 tab.chew 10/30/16 [Rx] Tiotropium [Spiriva] 18 mcg IH DAILY@0700 #1 inh 10/30/16 [Rx] Allergies/Adverse Reactions: Allergies No Known Allergies Allergy (Verified 11/04/15 13:15) Procedures/tests Complete & Pending: Procedures Performed prior 72 hours Category Date Time Status CT abd pelvis wo no iv no oral [CT] Routine Cat Scan 10/28/16 10:[address] abdomen w iv no oral [CT] Stat Cat Scan 10/29/16 08:39 Draft IR thoracentesis ultrasound [IR] Routine IR 10/27/16 14:55 Completed Date of admission: 10/27/16 14:07 Primary care physician: Mehrdad Diego MD Consults: 10/26/16 12:58 Consult to Pulmonology [CONS] Routine Consulting Provider: [facility] Reason for Consult: unresolved PNA. mucous plug in CTA chest. Call Completed: Yes 10/26/16 13:33 Consult to Respiratory Therapy [CONS] Stat Reason for Consult: focal percussion suctioning PRN BD's Time Notified: 13:33 Call Completed: Yes 10/29/16 08:41 Consult to Surgery [CONS] Routine Consulting Provider: Subhash Patterson Reason for Consult: expanding soft tissue mass to anterolateral ribs with ecchymosis to LLQ abdomen and abdominal distention. Repeat CT with contrast pending. HD stable. Time Notified: 08:42 Call Completed: Yes Discharging clinician: Dana Montesinos Anticipated date of discharge: 10/30/16 - Patient Status Disposition: Home, Self-Care Condition: Fair Functional capacity at discharge: independent ambulation Overall status at discharge: patient is back to baseline - Discharge Instructions Follow Up With: Luis Dozier MD [Partnered Physician] - (Cardio will be calling with an appointment time and date. Thank you! ) Mehrdad Diego MD [Primary Care Provider] - 11/02/16 9:30 am [facility] [place] [Provider Group] Additional Instructions: Follow-up with primary care provider as scheduled, follow-up with cardiothoracic surgery as instructed. Follow up with pulmonology in 4 weeks - Diet and Activity Activity: increase activity as tolerated, return to work once cleared by your PCP/specialist Diet: low salt diet Hospital course: Mr. Sierra is a 61 year old male with past medical history of COPD not on oxygen at home, hypertension, former tobacco abuse. Patient presented to the emergency department chief complaint progressive shortness of breath and cough 1 month. Patient stating he had seen his primary care physician who diagnosed him with pneumonia and he had completed a 7 day course of levofloxacin but his symptoms persisted so he went to the emergency department local to him at [place] where a CTA of chest revealed diffuse mucoid impaction of the right upper and lower lobes with right upper lobe bronchus narrowing and volume loss to the right upper lobe. Patient was then transferred to [facility]. Patient was admitted to the hospitalist service for further evaluation and management. Pulmonology was brought on board. IR proceed with an ultrasound-guided thoracentesis with 150 mL of bloody effusion obtained. Patient then had a bronchoscopy per pulmonology with subsequent bronchial alveolar lavage. Patient tolerated these procedures well and was weaned to room air on the day after his bronchoscopy. He then denied shortness of breath above his norm. Chief complaint at that time became left flank and left upper quadrant abdominal pain. Patient with a palpable mass noted to his left posterior/ lateral area on the lower portion of his rib cage. Abdominal CT revealing a 5 cm soft tissue mass of unknown etiology. Patient was then observed overnight and a repeat abdominal CT the next day revealed increased size of the soft tissue mass consistent with a possible expanding hematoma but neoplasm could not be ruled out. Initial thought was that this was possibly a complication from his thoracentesis however in review of his imaging from [place], this mass was present prior to him being transferred to [facility]. His pain was controlled and he remained hemodynamically stable. Surgery was brought on board who recommended outpatient biopsy per cardiothoracic surgery given the location of the mass. Regarding his respiratory status, patient returned to his baseline and tolerated room air well. He was sent home on pain medication and instructed to follow up closely outpatient with his primary care provider as well as cardiothoracic surgery for a biopsy at their discretion. Pulmonology recommends repeat chest CT in 3-4 weeks as well as follow up outpatient with pulmonology. He was discharged home in stable condition with close outpatient follow-up recommended. ITS Impressions Thoracentesis Ultrasound 10/27/16 14:55 IMPRESSION: Successful ultrasound guided thoracentesis. Small amount of left bloody effusion. D/ / 10/27/2016 11:17:15 Shira Galloway MD / eliud Interpreting Provider: Shira Galloway MD Chest X-Ray 10/28/16 06:38 IMPRESSION: Small left pleural effusion and bibasilar atelectasis. D/ / Rubin Whitt MD / Rubin Whitt MD Interpreting Provider: Rubin Whitt MD Abdomen/Pelvis CT 10/28/16 10:15 cross-section. There is impression by the mass on peritoneal fat within the left upper quadrant. No definite rib fracture or erosion seen. Asymmetric edema is seen of the subcutaneous fat of the left flank. Left L5 pars defect. IMPRESSION: 5 cm soft tissue mass is seen between the anterolateral left 8th and 9th ribs. Hematoma, phlegmon, or soft tissue neoplasm are considerations. Correlate with history and physical examination. Small left pleural effusion and left basilar atelectasis. Tiny focus of air within the subcutaneous fat of the anterior abdominal wall to the left of midline. Some considerations include recent medication injection or sequela of recent trauma, less likely infection. D/ / Rubin Whitt MD / Rubin Whitt MD Interpreting Provider: Rubin Whitt MD Abdomen CT 10/29/16 08:39 IMPRESSION: Mild interval increased size of the soft tissue appearing mass interposed between the left 8th and 9th ribs. Given the interval expansion findings may reflect underlying hematoma. Continued surveillance recommended as neoplasm cannot be excluded. Left pleural effusion with lingular and lower lobe atelectasis. D/ / 10/29/2016 10:03:53 Lon Chavarira MD / indra Interpreting Provider: Lon Chavarria MD - Time Spent with Patient Total time spent providing and/or coordinating discharge services: - Constitutional Vitals: Temp Pulse Resp BP Pulse Ox 97.8 F 81 14 156/99 97 10/30/16 07:37 10/30/16 07:20 10/30/16 07:20 10/30/16 07:20 10/30/16 07:20 General appearance: Present: cooperative, A&O X 3, pleasant, no acute distress, answers questions appropriately - Head Head exam: Present: atraumatic, normocephalic - Eye Eye exam: Present: PERRL, conjuntiva pink, sclera anicteric Pupils: Present: PERRL - Neck Neck exam general surgery: Present: supple, trachea midline. Absent: lymphadenopathy - Respiratory Respiratory exam: Present: decreased breath sounds. Absent: accessory muscle use, rales, respiratory distress, rhonchi, wheezes - Cardiovascular Cardiovascular exam: Present: RRR, +S1, +S2. Absent: diastolic murmur, gallop, rubs, systolic murmur - GI/Abdominal GI/Abdominal exam: Present: distended, normal bowel sounds, soft, tenderness, no peritoneal signs - Extremities Exam Extremities exam: Present: warm, radial pulses palpable and symetrical. Absent : calf tenderness, cyanotic, pedal edema - Back Exam Back exam: Present: tenderness (Mass to left lateral/posterior rib cage area between eighth and ninth intercostal space) - Neurological Exam Neurological exam: Present: alert, CN II-XII intact, normal gait, oriented X3, no focal deficits, strengths equal and symetr throughout. Absent: pronater drift, facial droop, speech deficit - Skin Skin exam: Present: dry, intact, normal color, warm
[2016-10-30 14:06] LABS: Influenza A PCR Body Fluid NOT DETECTED; Influenza B PCR Body Fluid NOT DETECTED; RSV PCR Body Fluid NOT DETECTED
[2016-11-02 07:27] LABS: Influenza A PCR Body Fluid NOT DETECTED; Influenza B PCR Body Fluid NOT DETECTED; RSV PCR Body Fluid NOT DETECTED
== END 2016-10-30 11:02 | disposition home or self-care (01) | DRG 140 ==
LOC: 3BNU
PROVIDERS: ADMIT Nurse Practitioner Family; ATTEND Nurse Practitioner Family

== ENCOUNTER 2018-07-04 08:39 | Inpatient (IN) ==
--- NOTE | 2018-07-03 22:06 | Discharge Summary ---
- NOTES TO OUTPATIENT PROVIDER Notes to Outpatient Provider: Address chronic hyponatremia Date of Encounter: 07/04/18 Time of Encounter: 17:27 - Discharge Diagnosis (1) Status post reverse total replacement of right shoulder Priority: Primary Status: Acute Comments: SMall hematoma to distal incision - pressure dressing and ICE placed. Tamara placed. Opsite dressing, leave intact until first post-operative visit. Zipline/[place] in place, plan to remove at post-operative day #14-16. If dressing becomes >50% saturated, contact office, remove dressing and place appropriate dressing in its place. Do not allow for dressing to get wet. Shoulder Precautions x 6 weeks. Apply cold therapy wrap 3-6x/day for 20 minutes at a time. Encourage ambulation throughout the day. Use Incentive spirometer 10x/hour. Elevate affected extremity above heart as tolerated. NWB to affected upper extremity x 6 weeks. Will remove brace at first post-operative appointment. OK to remove during PT/ OT and Home exercises f/up on . (2) Rotator cuff arthropathy of right shoulder Priority: Primary Status: Acute (3) BPH (benign prostatic hyperplasia) Priority: Secondary Status: Acute Qualifiers: Lower urinary tract symptom presence: unspecified whether lower urinary tract symptoms present Qualified Code(s): N40.0 - Benign prostatic hyperplasia without lower urinary tract symptoms (4) Tobacco use Priority: Secondary Status: Chronic (5) Hyponatremia Priority: Secondary Status: Chronic Comments: Pre-op 127 (6) Former tobacco use Priority: Secondary Status: Chronic (7) HTN (hypertension) Priority: Secondary Status: Chronic Qualifiers: Hypertension type: essential hypertension Qualified Code(s): I10 - Essential (primary) hypertension - Hospital Course Hospital course: Mr. Sierra is a 62 year old male status post Right Tsr-reverse. - with a history of chronic hyponatremia. Patient had uneventful postoperative course. He did have small hematoma formation to distal of incision. [place] placed, bleeding stopped. Apply ICE and pressure dressing x 24 hours. Chronic hyponatremia - follow up with PCP. Discharge Sodium level of 130, improved from 127 pre-op. Chronic COPD and cough, cough unchanged, he received a breathing treatment and improved. No current respiratory stress. Patient seen at bedside, without complaints. A&O x 3 Afebrile, vital signs stable. Vital Signs Temp Pulse Resp BP Pulse Ox 07/04/18 17:05 97.6 F 88 127/88 96 07/04/18 16:18 20 98 07/04/18 15:07 98.3 F 96 131/92 96 07/04/18 14:01 96.9 F L 88 20 124/78 98 07/04/18 13:25 97.2 F L 87 20 122/82 98 07/04/18 13:04 97.3 F L 77 20 136/95 98 07/04/18 12:56 97.3 F L 79 20 136/95 97 07/04/18 12:46 80 20 140/89 98 07/04/18 12:36 97.4 F L 84 20 137/96 97 07/04/18 12:26 88 20 139/100 98 07/04/18 12:16 97.5 F L 97 18 145/83 98 07/04/18 10:45 91 141/94 94 07/04/18 10:28 83 16 134/90 97 07/04/18 09:22 98.5 F 76 18 140/92 95 07/04/18 09:02 98.5 F 76 18 140/92 95 Intake and Output 07/04/18 07/04/18 07/04/18 07:59 15:59 23:59 Intake Total 1020 / 1020 Output Total 50 / 50 Balance 970 / 970 Intake: IV Fluids 1020 / 1020 Lactated Ringers 1,000 ML @ 75 1000 / 1000 mls/hr IVC .[id number] IMMANUEL Rx#: [id number] Ancef Syringe 2,000 MG/20 ML 2, 20 / 20 000 mg In 20 ml @ 200 mls/hr IVPB PREOP ONE Rx#:[id number] Output: Estimated Blood Loss 50 / 50 Other: # Voids 1 Weight 81.193 kg Patient Weight 07/04/18 23:59 Weight 81.193 kg Labs reviewed. H/H - stable, asymptomatic Short CBC 07/04/18 07/04/18 Range/Units 12:36 08:59 WBC 7.5 (4.3-11.1) K/mcL Hgb 13.0 14.2 (12.9-16.9) g/dL Hct 37.5 40.7 (37.5-50.1) % Plt Count 278 (140-400) K/mcL Neutrophils # 5.2 (1.6-8.9) K/mcL BMP 07/04/18 07/04/18 Range/Units 12:36 08:59 Sodium 130 L 127 L (136-145) mEq/L Potassium 4.2 (3.5-5.1) mEq/L Chloride 94 L (98-107) mEq/L Carbon Dioxide 24 (23-29) mEq/L BUN 10 (8-23) mg/dL Creatinine 0.66 L (0.70-1.30) mg/dL Glucose 114 H (70-105) mg/dL Calcium 9.5 (8.6-10.3) mg/dL Pain control: adequate Participating in PT. All questions and concerns addressed. Educated on use of incentive spirometer. Encouraged ambulation and proper hydration. Patient educated on post-operative restrictions and post-operative care. Assessment and plan: Continue with postoperative care Discharge plan: Home , discharge today F/up PCP for hyponatremia - Time Spent with Patient Total time spent providing and/or coordinating discharge services: - Discharge Medications Home Medications: Lisinopril [Zestril] 10 mg PO DAILY 11/04/15 [History] hydroCHLOROthiazide [Hydrochlorothiazide] 25 mg PO DAILY 11/04/15 [History] Meloxicam 15 mg PO DAILY 08/09/16 [History] Albuterol Sulfate [Ventolin Hfa] 2 puff IH Q4H PRN 10/26/16 [History] Aspirin 81 mg PO DAILY 10/26/16 [History] Budesonide/Formoterol 160/4.5 [Symbicort 160/4.5] 2 puff IH BID 10/26/16 [ History] Doxazosin [Cardura] 4 mg PO HS 10/26/16 [History] Ipratropium/Albuterol Neb [Duoneb] 3 ml IH Q6HR PRN 10/26/16 [History] Omeprazole [PriLOSEC] 20 mg PO DAILY 10/26/16 [History] Tiotropium [Spiriva] 18 mcg IH DAILY@0700 #1 inh 10/30/16 [Rx] OxyCODONE Immed Rel [Roxicodone 5 MG] 5 mg PO Q6HR PRN 7 Days #28 tablet [Rx] Allergies/Adverse Reactions: 3 Allergy/AdvReac Type Severity Reaction Status Date / Time No Known Allergies Allergy Verified 07/04/18 09:21 Date of admission: 07/04 Primary care physician: Mehrdad Diego MD Discharging clinician: Crystal Bustillo Anticipated date of discharge: 07/04/18 - Patient Status Disposition: Home, Self-Care Condition: Good Functional capacity at discharge: independent ambulation Overall status at discharge: patient is progressing back to baseline - Discharge Instructions Follow Up With: Mehrdad Diego MD [Primary Care Provider] - Additional Instructions: Discharge Instructions: Total Shoulder Please call [facility] ([phone]), your Primary Care Physician, or report to the Emergency Room if you have any of the following symptoms: Nausea, vomiting, fever greater that 101.5, swelling, chest pain, shortness of breath, increased pain/redness/drainage/odor for your incision site, numbness/ tingling, or any other concerning symptoms. ACTIVITY: Always keep your arm in the sling. Do not raise your arm away from your body. Do not use your arm to help with getting in or out of bed. No weight bearing permitted. Only perform those exercises given to you by your therapist. Incentive Spirometer 10 times an hour. MEDICATIONS: Upon discharge resume your home medications. Take all the medications as prescribed. Take a stool softener if taking narcotic pain medications. Stool softeners are only effective if you drink enough fluids. Drink 6-8 glass of water or fluids a day, unless this is not allowed for another health problem. Despite using stool softeners, if you haven't had a bowel movement in 3 days, please switch to a gentle laxative. Gentle laxatives are sold over the counter. You should have a bowel movement within 24 hours, if not call the office. You will be discharged from the hospital with a prescription for pain medication. You are encouraged to decrease the use of narcotic pain medication as tolerated. Should you require a refill, please call the office. [facility] prescribes narcotic pain medication for only 4-6 weeks after surgery. If you require pain medication beyond this time period, you may be referred to your Primary Care Physician or to the Pain Clinic for further evaluation. Plan ahead for refills on pain medication as many narcotics either need to be picked up at the office or mailed. It is best to call 48-72 hours in advance of needing a prescription refill so you don't run out of medication. To help control the post-operative pain, you may take NSAIDs (Aleve,Advil, Motrin, Ibuprofen, Naprosyn) or Tylenol as prescribed on the bottle in addition to the pain medication. WOUND CARE: Leave the dressing on for 7-10 days. You may change the dressing if it becomes saturated greater than 50%. Do not get the dressing wet at anytime. Wash your hands with antibacterial soap, rinse and dry prior to any wound care. If you have tamara the visiting nurse or rehab facility can remove the stapes 10-14 days after surgery and place steri-strips across the wound. Leave the steri-strips in place until they fall off on their own. You may let water from the shower run on top of the steri-strips. If you do not have a visiting nurse or rehab facility, you will need to return to the office at 10-14 days for the tamara to be removed. If you have itching or redness around the dressing call the office. FOLLOW-UP: Please follow up with your surgeon in the orthopedic clinic, as scheduled
--- NOTE | 2018-07-04 08:35 | Anesthesia Evaluation PreOp ---
Date of Encounter: 07/04/18 Time of Encounter: 09:59 - Past History Planned Operation: RIGHT TOTAL SHOULDER ARTHROPLASTY Cardiac History: HTN Pulmonary History: Former smoker, COPD Other Medical History: GERD, Other (CHRONIC HYPONATREMIA) Anesthesia History: No Prior Anesthetic Complications, Past Anesthesia Alcohol Use: occasionally Drug use: none Medications and Allergies Lisinopril [Zestril] 10 mg PO DAILY 11/04/15 [History] hydroCHLOROthiazide [Hydrochlorothiazide] 25 mg PO DAILY 11/04/15 [History] Meloxicam 15 mg PO DAILY 08/09/16 [History] Albuterol Sulfate [Ventolin Hfa] 2 puff IH Q4H PRN 10/26/16 [History] Aspirin 81 mg PO DAILY 10/26/16 [History] Budesonide/Formoterol 160/4.5 [Symbicort 160/4.5] 2 puff IH BID 10/26/16 [ History] Doxazosin [Cardura] 4 mg PO HS 10/26/16 [History] Ipratropium/Albuterol Neb [Duoneb] 3 ml IH Q6HR PRN 10/26/16 [History] Omeprazole [PriLOSEC] 20 mg PO DAILY 10/26/16 [History] Tiotropium [Spiriva] 18 mcg IH DAILY@0700 #1 inh 10/30/16 [Rx] OxyCODONE Immed Rel [Roxicodone 5 MG] 5 mg PO Q6HR PRN 7 Days #28 tablet [Rx] 3 Allergy/AdvReac Type Severity Reaction Status Date / Time No Known Allergies Allergy Verified 07/04/18 09:21 - Meds/Allergy Pre-op Review Medications Reviewed: Yes Allergies Reviewed: Yes Beta Blockers on Current Med List: No Anesthesia Results - Labs 07/04/18 08:59 07/04/18 08:59 Laboratory Last Values WBC 10.9 K/mcL (4.3-11.1) 07/01/18 11:28 RBC 4.22 M/mcL (4.19-5.50) 07/01/18 11:28 Hgb 14.2 g/dL (12.9-16.9) 07/01/18 11:28 Hct 39.7 % (37.5-50.1) 07/01/18 11:28 MCV 94.1 fL (83.0-100.0) 07/01/18 11:28 MCH 33.6 pg (28.0-33.3) H 07/01/18 11:28 MCHC 35.8 g/dL (31.6-35.5) H 07/01/18 11:28 RDW 12.4 % (11.5-14.5) 07/01/18 11:28 Plt Count 291 K/mcL (140-400) 07/01/18 11:28 MPV 9.0 fL (9.4-12.4) L 07/01/18 11:28 Immature Gran % 0.6 % (0-4) 07/01/18 11:28 Seg Neutrophils % 78.5 % 07/01/18 11:28 Lymphocytes % 10.5 % 07/01/18 11:28 Monocytes % 8.7 % 07/01/18 11:28 Eosinophils % 1.1 % 07/01/18 11:28 Basophils % 0.6 % 07/01/18 11:28 Neutrophils # 8.6 K/mcL (1.6-8.9) 07/01/18 11:28 Lymphocytes # 1.2 K/mcL (0.6-4.6) 07/01/18 11:28 Monocytes # 1.0 K/mcL (0.0-1.3) 07/01/18 11:28 Eosinophils # 0.1 K/mcL (0.0-0.6) 07/01/18 11:28 Basophils # 0.1 K/mcL (0.0-0.2) 07/01/18 11:28 Sodium 127 mEq/L (136-145) L 07/01/18 11:28 Potassium 4.1 mEq/L (3.5-5.1) 07/01/18 11:28 Chloride 92 mEq/L (98-107) L 07/01/18 11:28 Carbon Dioxide 27 mEq/L (23-29) 07/01/18 11:28 BUN 13 mg/dL (8-23) 07/01/18 11:28 Creatinine 0.79 mg/dL (0.70-1.30) 07/01/18 11:28 Est GFR ( Amer) > 60 (> 60) 07/01/18 11:28 Est GFR (Non-Af Amer) > 60 (> 60) 07/01/18 11:28 BUN/Creatinine Ratio 16 (6-26) 07/01/18 11:28 Glucose 101 mg/dL (70-105) 07/01/18 11:28 Calculated Osmolality 264 (280-300) L 07/01/18 11:28 Calcium 9.4 mg/dL (8.6-10.3) 07/01/18 11:28 - Imaging Additional studies: TTE 12/2016: LVEF 60-65%. Normal LV chamber size, wall thickness and function. Moderate left ventricular diastolic dysfunction. Normal right ventricular structure and function. No evidence of pulmonary hypertension. No significant valvular dysfunction. History of septal occluder device. No evidence of a PFO by color Doppler. Agitated saline not administered. PFT 12/2016: FVC 68+13 % PREDICTED FEV1 43+17 % PREDICTED MVV 42 % PREDICTED DLCO 69 % PREDICTED? Anesthesia Exam O2 Sat Height 1.73 m Height 1.73 m Height 1.73 m Weight 81.193 kg Weight 81.193 kg Weight 81.193 kg O2 Sat by Pulse Oximetry 95 O2 Sat by Pulse Oximetry 95 Vital Signs Temp Pulse Resp BP Pulse Ox 98.5 F 76 18 140/92 95 07/04/18 09:02 07/04/18 09:02 07/04/18 09:02 07/04/18 09:02 07/04/18 09:02 NPO (# of Hours): 8 - HEENT Mallampati: III (BEARDED) Teeth: Normal Oral Opening: Greater than 3 - Cardiac Rhythm: Regular - Pulmonary Breath Sounds: bilateral Clear Respiratory Effort: Symmetrical Anesthesia Assess/Plan ASA Score: 3 Modified Pipo Scale for Level of Consciousness: Cooperative, oriented, and tranquil Anesthetic Plan: General, Regional (FOR POST OPERATIVE PAIN) Monitoring Plan: Standard Monitors Recovery Plan: PACU Anes Supervising Prov Stmt: IM-Sense LIST NOT UPDATED THIS VISIT PATIENT'S CHART AND CURRENT MEDICATIONS REVIEWED CURRENT MEDICATIONS: Ventolin HFA 108MCG/A Aerosol Solution, Si puffs as needed Inhalation every 4 hrs prn Omeprazole 20 MG Capsule Delayed Release, Si capsule Orally Once a day Aspir-81 81 MG Tablet Delayed Release, Si tablet Orally Once a day Sodium Bicarbonate 325 MG Tablet, Si tablet Orally once a day Start Date: Doxazosin Mesylate 4MG Tablet, Si tablet Orally Once a day Symbicort 160-4.5 Aerosol, Si puffs Inhalation Twice a day Hydrochlorothiazide 25MG Tablet, Sig: TAKE ONE TABLET BY MOUTH EVERY DAY Meloxicam 15 MG Tablet, Sig: TAKE ONE TABLET BY MOUTH ONCE DAILY Lisinopril 10MG Tablet, Sig: TAKE ONE TABLET BY MOUTH EVERY DAY Ipratropium-Albuterol 0.5-2.5 (3) MG/3ML Solution, Si ml Inhalation Four times a day Sildenafil Citrate 20 MG Tablet, Si-2 prn Orally Start Date: 07/14/2017 Spiriva Respimat 2.5 MCG/ACT Aerosol Solution, Si puffs Inhalation Once a day Patient informed and consented. Risks, benefits, and alternatives discussed. Patient wishes to proceed.
[2018-07-04] MEDS ORDERED: CeFAZolin Syr 2,000MG/20 ML 2,000 MG/20 ML SYRINGE IVPB ONE (09:10)
--- NOTE | 2018-07-04 09:19 | History & Physical Report ---
Date of Encounter: 07/04/18 Time of Encounter: 09:18 24 Hour HP Update - Instructions Instructions: If the History and Physical is less than 30 days old and was completed prior to A.M. admission and or procedure and has NOT been updated on calendar day of procedure please complete this update prior to performing procedure. - Update Patient reports changes in Medical Condition: No Changes in examination, assessment, or condition: No Changes in Medication: No Preop tests/diagnostics Reviewed: Yes Surgery Remains Indicated: Yes Consent for Planned Operative Procedure(s) Verified: Yes - Pre-Operative Checklist Preoperative Checklist Indicated: No Prophylactic Antibiotic Ordered: Yes Is VTE Prophylaxis Indicated?: Yes
[2018-07-04] MEDS ORDERED: Albuterol 2.5 MG/3 ML NEBULIZER IH ONE (09:26)
[2018-07-04 09:28] LABS: Basophils # 0.1 K/mcL (0.0-0.2); Basophils % 1.1 %; Eosinophils # 0.3 K/mcL (0.0-0.6); Eosinophils % 3.5 %; Hematocrit 40.7 % (37.5-50.1); Hemoglobin 14.2 g/dL (12.9-16.9); Immature Granulocytes % 0.4 % (0-4); Lymphocytes # 1.2 K/mcL (0.6-4.6); Mean Corpuscular HGB Conc 34.9 g/dL (31.6-35.5); Mean Corpuscular Hemoglobin 32.5 pg (28.0-33.3); Mean Corpuscular Volume 93.1 fL (83.0-100.0); Mean Platelet Volume 8.7 fL (9.4-12.4); Monocytes # 0.7 K/mcL (0.0-1.3); Monocytes % 9.9 %; Neutrophils # 5.2 K/mcL (1.6-8.9); Platelet Count 278 K/mcL (140-400); Red Blood Count 4.37 M/mcL (4.19-5.50); Red Cell Distribution Width 12.1 % (11.5-14.5); Segmented Neutrophils % 69.1 %
[2018-07-04] MEDS: Ringers Solution, Lactated 1,000 ML IVC SCH ×2 (09:44→11:37)
[2018-07-04 09:47] LABS: BUN/Creatinine Ratio 15 (6-26); Blood Urea Nitrogen 10 mg/dL (8-23); Calcium 9.5 mg/dL (8.6-10.3); Carbon Dioxide 24 mEq/L (23-29); Chloride 94 mEq/L (98-107); Glucose 114 mg/dL (70-105); Osmolality,Calculated 264 (280-300); Potassium 4.2 mEq/L (3.5-5.1); Sodium 127 mEq/L (136-145); eGFR For Non-African Americans > 60 (> 60)
[2018-07-04] MEDS ORDERED: *HR* Succinylcholine 200 MG/10 ML VIAL IVP ONE (09:48)
[2018-07-04] MEDS ORDERED: *HR* FentaNYL (PF) 100 MCG/2 ML VIAL ONE (09:48)
[2018-07-04] MEDS ORDERED: *HR* Midazolam HCl 2 MG/2 ML VIAL ONE (09:48)
[2018-07-04] MEDS ORDERED: *HR* Propofol 200 MG/20 ML VIAL IVP ONE (09:48)
[2018-07-04] MEDS ORDERED: Ondansetron 4 MG/2 ML VIAL ONE (09:48)
[2018-07-04] MEDS ORDERED: Dexamethasone 4 MG/ML VIAL ONE (09:48)
[2018-07-04] MEDS ORDERED: Lidocaine -MPF 2% 2 ML VIAL ONE (09:48)
[2018-07-04] MEDS ORDERED: ROPIVACAINE HCL/PF 0.5% 30 ML VIAL ONE (10:34)
[2018-07-04] MEDS ORDERED: Bupivacaine/Clonidine Syringe 1 EACH SYRINGE ONE (10:34)
--- NOTE | 2018-07-04 10:51 | Anesthesia Procedures ---
Date of Encounter: 07/04/18 Time of Encounter: 10:49 Procedures: Anesthesia - Nerve Block Procedure Date: 07/04/18 Time: 10:49 Allergies/Adv Reactions: [id number] Pre-op Diagnosis: R Shoulder RTC arthropathy Surgical Procedure: R TSR, Reverse Checklist: Correct Patient Identifier, Correct procedure, History checked Correct side: Right Blood Thinner: No Monitor Applied: EKG, BP, Pulse Oximetry Supplemental Oxygen via Nasal Cannula (L/min): 3 Sedation: Versed (mg): 2 Sedation: Fentanyl (mcg): 100 Indication: Post Op Analgesia (requested by Dr. Landin) Pre-op Neuro Deficits: No Block Type: Supraclavicular, Other (SCP, ICB) Catheter placed: No Sterile Technique: Yes Ultrasound used: No Anatomy identified: Yes Visual spread of Local: Yes Neuro Stimulation: No Blood on Needle Aspiration: No Smooth Injection of Local: Yes Pain with Injection of Local: No Prep: Chlorhexadine Needle: 22 x 50 mm Stimuplex Local: 0.25% Bupivicaine w/Clonidine 20 mcg/cc (7.5mL for SCP; 7.5mL for ICB), Ropivacaine (30mL of 0.5% + 4mg dexamethasone) Number of Attempts: 1 Complications: None/effective block Vitals: please see Gaye FIGUEREDO's electronic records for VS entry
[2018-07-04] MEDS ORDERED: *HR* OxyCODONE Immed Rel 5 MG TABLET PO PRN ×2 (10:54→13:55)
[2018-07-04] MEDS ORDERED: *HR* HYDROmorphone 2 MG TABLET PO PRN (10:54)
[2018-07-04] MEDS ORDERED: *HR* Labetalol 20 MG/4 ML SYRINGE IVP PRN (10:54)
[2018-07-04] MEDS ORDERED: *HR* PHENYLEPHRINE 1,000 MCG/10 ML SYRINGE IVP ONE (11:30)
--- NOTE | 2018-07-04 12:09 | Orthopedic Operative Note ---
Date of procedure: 07/04/18 Pre-op diagnosis: Right shoulder cuff tear arthropathy Post-op diagnosis: same Procedure: Procedure: Total Shoulder Replacment Reverse, right Estimated blood loss: 50 cc Hardware: Metal and polyethylene replacement: Arthrex 28, +2 , 30 screw glenoid baseplate, 2 4.5 screws. 2 5.5 screw, 42+4 glenosphere, 15 apex humeral stem, poly insert 3 and metal 9 Exam Under anesthesia: Full motion no instability Procedural Notes: Complete irreparable tear supraspinatus tendon Operative procedure: The patient was brought to the operating room and placed on the operating room table. After general anesthesia was administered the operative shoulder was examined. Findings were noted. The patient was placed in the modified beachchair position. All pressure points were padded appropriately. And the head was stabilized in the neutral position. The operative extremity was prepped and draped in the sterile surgical fashion. The patient received IV antibiotics prior to skin incision. A standard deltopectoral approach was made to the operative shoulder. Incision was made to the skin and subcutaneous tissue,hemo stasis was obtained with Bovie cautery. Using careful blunt dissection the cephalic vein was identified and mobilized medially. The deltopectoral interval was developed and the clavipectoral fascia was incised. The subscap was released off the lesser tuberosity and tagged with #2 FiberWire suture subscap irreparable. The humerus was dislocated patient noted to have irreparable tear supraspinatus tendon, and the humeral cut was made along the anatomic neck. Anterior and posterior Bankart retractors were placed to expose the glenoid. The glenoid guide was seated and the centering hole was made. It was reamed with the appropriate reamer. The 28, +2, 30 mm screw was seated and secured with (2) 4.5 screws and 2 5.5 screw. The baseplate was irrigated and dried and the 42+4 Glenosphere was seated and secured with the Bonilla taper. The Bonilla taper was tested and found to be secure the humerus was redislocated and prepared with the diaphyseal reamers, followed by a broaching process up to the appropriate size 15 apex in the patient's anatomic version. The metaphyseal reamer was then utilized. Trial reduction found the shoulder to be relocatable. Trial components were removed and 15 apex stem was impacted in place in the patient's anatomic version. Trial reduction found the shoulder to be relocatable and stable with the appropriate 9 metal 3 Neda Trial component was removed and the real implant was seated and secured the shoulder was reduced. The shoulder had excellent motion and excellent stability and no evidence of dislocation. The deep tissue was irrigated with pulse irrigation. The PA close the shoulder. The deltopectoral interval was closed with a running #1 PDS suture, subcutaneous tissue was irrigated and closed with 0 PDS suture, the skin was closed with Dermabond. The patient was placed in a sterile dressing, abduction brace and extubated. The patient was then transferred to the recovery room in stable condition. Anesthesia: GETA Surgeon: Cayetano Landin Was there an video library assistant present: Yes Reaming Machine Tender: Crystal Bustillo Estimated blood loss (cc): 50 Condition: stable Disposition: PACU
[2018-07-04 12:55] LABS: Hematocrit 37.5 % (37.5-50.1)
[2018-07-04] MEDS ORDERED: Ringers Solution, Lactated 1,000 ML IVC SCH (13:55)
[2018-07-04] MEDS ORDERED: MOM Conc 10 ML UD.LIQ PO PRN (13:55)
[2018-07-04] MEDS ORDERED: Naloxone 0.4 MG/ML INJ IVP PRN (13:55)
[2018-07-04] MEDS ORDERED: Ipratropium/Albuterol Neb 3 ML IH PRN (13:55)
[2018-07-04] MEDS ORDERED: Sennosides 8.6 MG TABLET PO PRN (13:55)
[2018-07-04] MEDS ORDERED: *HR* OxyCODONE/APAP 5/325 TABLET PO PRN (13:55)
[2018-07-04] MEDS ORDERED: traMADol 50 MG TABLET PO PRN (13:55)
[2018-07-04] MEDS ORDERED: Ondansetron 4 MG/2 ML VIAL IVP PRN (13:55)
[2018-07-04 17:07] VITALS: BP 127/88
--- NOTE | 2018-07-04 17:39 | Anesthesia Evaluation Post Op ---
Date of Encounter: 07/04/18 Time of Encounter: 12:58 - Discharge PostOp Status: Transfer Patient to floor (Patient's vital signs have been reviewed. Patient is stable postoperatively and has adequately recovered from anesthesia. Patient is determined to have stable airway patency and respiratory function including respiratory rate and oxygen saturation. Patient has a stable heart rate, blood pressure and adequate hydration. Patients mental status is acceptable. Patients temperature is appropriate. Pain and nausea are adequately controlled.)
[2018-07-04] MEDS ORDERED: *HR* Enoxaparin 30 MG/0.3 ML SYRINGE SQ SCH ×2 (18:00)
[2018-07-04] MEDS ORDERED: Temazepam 15 MG CAPSULE PO PRN (21:00)
[2018-07-04] MEDS ORDERED: Budesonide/Formoterol 160/4.5 1 PUFF INH IH SCH (22:00)
[2018-07-05] MEDS ORDERED: Tiotropium 18 MCG inhalation IH SCH (07:00)
[2018-07-05] MEDS ORDERED: Aspirin 81 MG TAB.CHEW PO SCH (09:00)
[2018-07-05] MEDS ORDERED: hydroCHLOROthiazide 25 MG TABLET PO SCH (09:00)
--- NOTE | 2018-07-05 16:12 | Physician Discharge Referral ---
Home Health/Hosp Referral Info Transfer to: Home Health Attending Provider: Provider in Charge Post Discharge: PCP - Diagnosis (1) Status post reverse total replacement of right shoulder Priority: Primary Status: Acute (2) Rotator cuff arthropathy of right shoulder Priority: Primary Status: Acute (3) BPH (benign prostatic hyperplasia) Status: Acute (4) Tobacco use Status: Chronic (5) Hyponatremia Status: Chronic (6) Former tobacco use Status: Chronic (7) HTN (hypertension) Status: Chronic - Respiratory Orders None Smoking Cessation: Smoking cessation has been advised. For more information, call the [place] Tobacco Quit Line at 7-236-NTCR-NOW. - Diet/Nutrition Diet/Nutrition Orders: Regular - Activity Activity Orders: Up ad vickey, Ambulate, Walker - Services Needed Following services are medically necessary services: Nursing, Home Health Aide, Physical Therapy, Occupational Therapy Home Care Orders: Opsite dressing, leave intact until first post-operative visit. If dressing becomes >50% saturated, contact office, remove dressing and place appropriate dressing in its place. Do not allow for dressing to get wet. Zipline in place, plan to remove at post-operative day #14-16. Total Joint Precautions x 6 weeks Apply cold therapy wrap 3-6x/day for 20 minutes at a time. Encourage ambulation throughout the day Use Incentive spirometer 10x/hour. Elevate affected extremity above heart as tolerated. Brace: Wear knee immobilizer at night until first post-operative appt. ~ - Transfer Medications Home Medications: Lisinopril [Zestril] 10 mg PO DAILY 11/04/15 [History] hydroCHLOROthiazide [Hydrochlorothiazide] 25 mg PO DAILY 11/04/15 [History] Meloxicam 15 mg PO DAILY 08/09/16 [History] Albuterol Sulfate [Ventolin Hfa] 2 puff IH Q4H PRN 10/26/16 [History] Aspirin 81 mg PO DAILY 10/26/16 [History] Budesonide/Formoterol 160/4.5 [Symbicort 160/4.5] 2 puff IH BID 10/26/16 [ History] Doxazosin [Cardura] 4 mg PO HS 10/26/16 [History] Ipratropium/Albuterol Neb [Duoneb] 3 ml IH Q6HR PRN 10/26/16 [History] Omeprazole [PriLOSEC] 20 mg PO DAILY 10/26/16 [History] Tiotropium [Spiriva] 18 mcg IH DAILY@0700 #1 inh 10/30/16 [Rx] OxyCODONE Immed Rel [Roxicodone 5 MG] 5 mg PO Q6HR PRN 7 Days #28 tablet [Rx] Allergies/Adverse Reactions: 3 Allergy/AdvReac Type Severity Reaction Status Date / Time No Known Allergies Allergy Verified 07/04/18 09:21 Certification: Further, I certify that my clinical findings support that this patient is homebound (i.e. absences from home require considerable and taxing effort and are for medical reasons or christian services or infrequently or short duration when for other reasons) because: Homebound Reason: Post-surgery restriction and or conditions limit ability to leave home Attestation: My signature below is to certify that this patient is under my care and that I, or nurse practitioner, or a physician's title assistant working with me, has a face-to -face encounter with this patient.
== END 2018-07-04 18:15 | disposition home or self-care (01) | DRG 315 ==
LOC: SAMDAY 08:39 → 3NENU 13:25
PROVIDERS: ADMIT Orthopaedic Surgery; ATTEND Orthopaedic Surgery

== ENCOUNTER 2018-07-29 13:01 | Observation (INO) ==
[2018-07-29 14:20] LABS: Basophils % 0.3 %; Eosinophils % 0.1 %; Hematocrit 41.1 % (37.5-50.1); Hemoglobin 14.2 g/dL (12.9-16.9); Lymphocytes # 0.7 K/mcL (0.6-4.6); Lymphocytes % 6.6 %; Mean Corpuscular HGB Conc 34.5 g/dL (31.6-35.5); Mean Corpuscular Hemoglobin 32.8 pg (28.0-33.3); Mean Corpuscular Volume 94.9 fL (83.0-100.0); Mean Platelet Volume 8.8 fL (9.4-12.4); Monocytes # 0.4 K/mcL (0.0-1.3); Monocytes % 3.8 %; Neutrophils # 9.6 K/mcL (1.6-8.9); Platelet Count 317 K/mcL (140-400); Red Blood Count 4.33 M/mcL (4.19-5.50); Red Cell Distribution Width 12.8 % (11.5-14.5); Segmented Neutrophils % 88.2 %
[2018-07-29 14:25] LABS: Troponin I < 0.03 ng/mL (< 0.04)
[2018-07-29] MEDS ORDERED: Ipratropium/Albuterol Neb 3 ML IH ONE (14:34)
[2018-07-29] MEDS ORDERED: methylPREDNISolone 125 MG/2 ML VIAL IVP ONE (14:34)
[2018-07-29] MEDS ORDERED: 0.9 % Sodium Chloride 1,000 ML IVC ONE (14:35)
[2018-07-29 14:43] LABS: BUN/Creatinine Ratio 22 (6-26); Blood Urea Nitrogen 14 mg/dL (8-23); Calcium 9.5 mg/dL (8.6-10.3); Carbon Dioxide 26 mEq/L (23-29); Chloride 94 mEq/L (98-107); Glucose 132 mg/dL (70-105); Osmolality,Calculated 268 (280-300); Potassium 4.4 mEq/L (3.5-5.1); Sodium 128 mEq/L (136-145); eGFR For Non-African Americans > 60 (> 60)
[2018-07-29] MEDS: Isovue-370 500 ML INFUS..BTL IV ONE ×2 (15:55→15:59)
--- NOTE | 2018-07-29 16:28 | Emergency Department Note ---
Disposition Clinical Impression: COPD exacerbation, Bronchiectasis, Mucus plugging of bronchi Disposition: Admitted As Inpatient Condition: Good Referrals: Mehrdad Diego MD [Primary Care Provider] - General Adult HPI - General Chief complaint: ED Shortness of Breath/Dyspnea Stated complaint: RAPHAEL Time Seen by Provider: 07/29/18 13:44 Source: patient Mode of arrival: ambulatory Limitations: no limitations Nursing Notes Reviewed: Yes Vital Signs Reviewed: Yes - History of Present Illness HPI Narrative: Patient presents emergency department today for evaluation of shortness of faye ath. 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 He had lung problems since then. He quit smoking in 2008. He does have COPD. He has been treated for dyspnea over the last month. He has received antibiotics as well as steroids. Initial azithromycin and most recently Levaquin which she finished several days ago. Symptoms got significantly worse over the last several days. Patient has been using breathing treatments every 4 hours. He was seen by primary care physician and referred to the emergency department for CTA of his chest further rule out other pathology as his heart rate was in the 130s and he was mildly hypoxic. The patient states that he was previously coughing things up but this has since stopped as of 2 days ago. He will undergo further evaluation for COPD exacerbation and rule out pneumonia Pain Scale: 0 - Related Data Home Medications Medication Instructions Recorded Confirmed Lisinopril [Zestril] 10 mg PO DAILY 11/04/15 07/04/18 hydroCHLOROthiazide 25 mg PO DAILY 11/04/15 07/04/18 [Hydrochlorothiazide] Meloxicam 15 mg PO DAILY 08/09/16 07/04/18 Albuterol Sulfate [Ventolin Hfa] 2 puff IH Q4H PRN 10/26/16 07/04/18 Aspirin 81 mg PO DAILY 10/26/16 07/04/18 Budesonide/Formoterol 160/4.5 2 puff IH BID 10/26/16 07/04/18 [Symbicort 160/4.5] Doxazosin [Cardura] 4 mg PO HS 10/26/16 07/04/18 Ipratropium/Albuterol Neb [Duoneb] 3 ml IH Q6HR PRN 10/26/16 07/04/18 Omeprazole [PriLOSEC] 20 mg PO DAILY 10/26/16 07/04/18 Previous Rx's Medication Instructions Recorded Tiotropium [Spiriva] 18 mcg IH DAILY@0700 #1 inh 10/30/16 OxyCODONE Immed Rel [Roxicodone 5 5 mg PO Q6HR PRN 7 Days #28 tablet 07/03/18 MG] Allergies Allergy/AdvReac Type Severity Reaction Status Date / Time No Known Allergies Allergy Verified 07/04/18 09:21 Review of Systems: CONSTITUTIONAL: No weight loss, fever, chills, weakness or fatigue. HEENT: Eyes: No visual changes. Ears, Nose, Throat: No hearing loss, difficulty talking or unable to swallow. SKIN: No rash or itching. CARDIOVASCULAR: No chest pain, chest pressure or chest discomfort. No palpitations or edema. RESPIRATORY: Shortness of breath worse with exertion and better with breathing treatments. Cough without sputum production. GASTROINTESTINAL: No anorexia, nausea, vomiting or diarrhea. No abdominal pain or blood. GENITOURINARY: No burning on urination or hematuria. NEUROLOGICAL: No headache, dizziness, syncope, paralysis, ataxia, numbness or tingling in the extremities. No change in bowel or bladder control. MUSCULOSKELETAL: No muscle pain, back pain, joint pain or stiffness. Past Medical History - Past Medical History Medical history: Reports: arthritis, asthma, COPD, GERD, hypertension, other Psychiatric history: Reports: no psych history - Social History Smoking Status: Former smoker Smokeless Tobacco Status: No Alcohol use: Reports: occasionally Drug use: Reports: none Physical Exam General: Well appearing, nontoxic, no acute distress Head: Normocephalic Atraumatic Eyes: PERRL, EOMI ENT: Airway patent, no stridor Neck: supple, no meningismus Chest: Diffuse wheezing bilaterally Cardiac: Regular rhythm Abdomen: soft, nontender, nondistended; no guarding, rebound, or tenderness to percussion Musculoskeletal: Calves symmetric, nontender Skin: No rash, normal skin tone Neuro: Alert and Oriented to person, place, and time; No focal deficit - General General appearance: alert Course - Reevaluation(s) Reevaluation #1: CTA is negative for PE. Patient does have extensive lung changes which upon further discussing with the patient are likely related to his previous TB that he had in his youth. 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 He does have what appears to be a stable mucous plug. He has required bronchoscopy in the past. At this point patient is stable he is not requiring supplemental oxygen. He has had antibiotics outpatient and has required steroids. Steroids have been given. A dose of Levaquin was given secondary to the significant changes however the patient is not febrile there is no evidence of pneumonia at this time. Patient will be admitted to the hospital service. Vital Signs Temperature 98.3 F 07/29/18 13:09 Pulse Rate 113 07/29/18 13:09 Respiratory Rate 26 07/29/18 13:09 Blood Pressure 155/87 07/29/18 13:09 O2 Sat by Pulse Oximetry 95 07/29/18 13:09 Temperature 98.3 F 07/29/18 14:28 Pulse Rate 101 07/29/18 14:32 Respiratory Rate 24 07/29/18 14:46 Blood Pressure 140/96 07/29/18 14:32 O2 Sat by Pulse Oximetry 94 07/29/18 14:46 Oxygen Delivery Oxygen Delivery Room Air Medical Decision Making - Lab Data Result diagrams: 07/29/18 13:46 07/29/18 13:46 Lab Results 07/29/18 07/29/18 07/29/18 Range/Units 13:46 13:46 13:46 WBC 10.9 (4.3-11.1) K/mcL RBC 4.33 (4.19-5.50) M/mcL Hgb 14.2 (12.9-16.9) g/dL Hct 41.1 (37.5-50.1) % MCV 94.9 (83.0-100.0) fL MCH 32.8 (28.0-33.3) pg MCHC 34.5 (31.6-35.5) g/dL RDW 12.8 (11.5-14.5) % Plt Count 317 (140-400) K/mcL MPV 8.8 L (9.4-12.4) fL Immature Gran % 1.0 (0-4) % Seg Neutrophils % 88.2 % Lymphocytes % 6.6 % Monocytes % 3.8 % Eosinophils % 0.1 % Basophils % 0.3 % Neutrophils # 9.6 H (1.6-8.9) K/mcL Lymphocytes # 0.7 (0.6-4.6) K/mcL Monocytes # 0.4 (0.0-1.3) K/mcL Eosinophils # 0.0 (0.0-0.6) K/mcL Basophils # 0.0 (0.0-0.2) K/mcL Sodium 128 L (136-145) mEq/L Potassium 4.4 (3.5-5.1) mEq/L Chloride 94 L (98-107) mEq/L Carbon Dioxide 26 (23-29) mEq/L BUN 14 (8-23) mg/dL Creatinine 0.63 L (0.70-1.30) mg/dL Est GFR ( Amer) > 60 (> 60) Est GFR (Non-Af Amer) > 60 (> 60) BUN/Creatinine Ratio 22 (6-26) Glucose 132 H (70-105) mg/dL Calculated Osmolality 268 L (280-300) Lactic Acid 2.1 (0.5-2.2) mmol/L Calcium 9.5 (8.6-10.3) mg/dL Troponin I < 0.03 (< 0.04) ng/mL B-Natriuretic Peptide (Less than 100) pg/mL 07/29/18 Range/Units 13:46 WBC (4.3-11.1) K/mcL RBC (4.19-5.50) M/mcL Hgb (12.9-16.9) g/dL Hct (37.5-50.1) % MCV (83.0-100.0) fL MCH (28.0-33.3) pg MCHC (31.6-35.5) g/dL RDW (11.5-14.5) % Plt Count (140-400) K/mcL MPV (9.4-12.4) fL Immature Gran % (0-4) % Seg Neutrophils % % Lymphocytes % % Monocytes % % Eosinophils % % Basophils % % Neutrophils # (1.6-8.9) K/mcL Lymphocytes # (0.6-4.6) K/mcL Monocytes # (0.0-1.3) K/mcL Eosinophils # (0.0-0.6) K/mcL Basophils # (0.0-0.2) K/mcL Sodium (136-145) mEq/L Potassium (3.5-5.1) mEq/L Chloride (98-107) mEq/L Carbon Dioxide (23-29) mEq/L BUN (8-23) mg/dL Creatinine (0.70-1.30) mg/dL Est GFR ( Amer) (> 60) Est GFR (Non-Af Amer) (> 60) BUN/Creatinine Ratio (6-26) Glucose (70-105) mg/dL Calculated Osmolality (280-300) Lactic Acid (0.5-2.2) mmol/L Calcium (8.6-10.3) mg/dL Troponin I (< 0.04) ng/mL B-Natriuretic Peptide 9 (Less than 100) pg/mL
[2018-07-29] MEDS ORDERED: Levofloxacin 750 MG/150 ML 750 MG/150 ML BAG IVPB STA (16:30)
[2018-07-29] MEDS ORDERED: *HR* OxyCODONE Immed Rel 5 MG TABLET PO STA (17:10)
--- NOTE | 2018-07-29 18:05 | Internal Med History&Physical ---
Date of Encounter: 07/29/18 Time of Encounter: 18:00 Internal Medicine - H&P: HPI Chief complaint: RAPHAEL History of present illness: Mr. Sierra is a 62 year old male HTN, COPD, former smoker quit 2008, TB, hx of mucous plugging, that presents with difficulty in breathing. States he developed coughing toward the end of June and has gotten progressively worse. Went in to see motor hotel manager who placed him on antibiotics and steroid but pt did not seem to be improving. States he was having some sputum up until 3 days ago and he was having difficult expectorating. Pt denies having fever or chills. Pt state he had been using inhaler at home without improvement. Patient has been using breathing treatments every 4 hours. He was seen by primary care physician and referred to the emergency. Past Med Surg Social Fam HX - Past Medical History Medical history: arthritis, asthma, COPD, GERD, hypertension, other Psychiatric history: no psych history - Past Surgical History Additional surgical history: right rotator cuff sx, hernia - Social History Smoking Status: Former smoker Smokeless Tobacco Status: No Alcohol use: occasionally Drug use: none - Family History Mother Living Status: Hx Family Cardiac Disorders: Yes (mother) Hx Family Respiratory Disorders: Yes (father, grandfather) Hx Family Cancer: Yes (father,cousins) Hx Family GI Disorders: No Hx Family Endocrine Disorder: Yes (mother, brothers x2) Hx Family Neuromuscular Disorders: No Hx Family Neurologic Disorders: No (grandmother) Hx Family HEENT Disorders: No Hx Family Autoimmune Disorders: No Internal Medicine - H&P: Meds Lisinopril [Zestril] 10 mg PO DAILY 11/04/15 [History] hydroCHLOROthiazide [Hydrochlorothiazide] 25 mg PO DAILY 11/04/15 [History] Meloxicam 15 mg PO DAILY 08/09/16 [History] Albuterol Sulfate [Ventolin Hfa] 2 puff IH Q4H PRN 10/26/16 [History] Aspirin 81 mg PO DAILY 10/26/16 [History] Budesonide/Formoterol 160/4.5 [Symbicort 160/4.5] 2 puff IH BID 10/26/16 [History] Doxazosin [Cardura] 4 mg PO HS 10/26/16 [History] Ipratropium/Albuterol Neb [Duoneb] 3 ml IH Q6HR PRN 10/26/16 [History] Omeprazole [PriLOSEC] 20 mg PO DAILY 10/26/16 [History] Tiotropium [Spiriva] 18 mcg IH DAILY@0700 #1 inh 10/30/16 [Rx] OxyCODONE Immed Rel [Roxicodone 5 MG] 5 mg PO Q6HR PRN 7 Days #28 tablet 07/03/18 [Rx] Allergy/AdvReac Type Severity Reaction Status Date / Time No Known Allergies Allergy Verified 07/04/18 09:21 All Systems PM: A 10-system review of systems was performed and is negative for pertinent findings except as documented above in the HPI. - Constitutional Vitals: Temp Pulse Resp BP Pulse Ox 98.3 F 99 18 134/91 94 07/29/18 14:28 07/29/18 17:36 07/29/18 17:51 07/29/18 17:51 07/29/18 17:36 General appearance: Present: A&O X 3, no acute distress Exam: . - Head Head exam: Present: atraumatic, normocephalic - Eye Eye exam: Present: PERRL, conjuntiva pink, sclera anicteric Pupils: Present: PERRL - Neck Neck exam general surgery: Present: supple, trachea midline. Absent: lymphadenopathy - Respiratory Respiratory exam: Present: CTAB, wheezes. Absent: accessory muscle use, rales, rhonchi - Cardiovascular Cardiovascular exam: Present: RRR, +S1, +S2. Absent: diastolic murmur, gallop, rubs, systolic murmur - GI/Abdominal GI/Abdominal exam: Present: normal bowel sounds, soft, no peritoneal signs. Absent: distended, tenderness - Extremities Exam Extremities exam: Present: warm, radial pulses palpable and symmetrical. Absent: calf tenderness, cyanotic, pedal edema - Neurological Exam Neurological exam: Present: CN II-XII intact, oriented X3, no focal deficits. Absent: pronater drift, facial droop, speech deficit - Skin Skin exam: Present: dry, intact Internal Med - H&P Results - Labs CBC & Chem 7: 07/29/18 13:46 07/29/18 13:46 Labs: Short CBC 07/29/18 Range/Units 13:46 WBC 10.9 (4.3-11.1) K/mcL Hgb 14.2 (12.9-16.9) g/dL Hct 41.1 (37.5-50.1) % Plt Count 317 (140-400) K/mcL Neutrophils # 9.6 H (1.6-8.9) K/mcL BMP 07/29/18 13:46 Sodium 128 L Potassium 4.4 Chloride 94 L Carbon Dioxide 26 BUN 14 Creatinine 0.63 L Glucose 132 H Calcium 9.5 Cardiac Enzymes 07/29/18 Range/Units 13:46 Troponin I < 0.03 (< 0.04) ng/mL - Impressions ITS Impressions Chest X-Ray 07/29/18 13:11 IMPRESSION: 1. No evidence of pneumonia 2. Pulmonary emphysema with postinflammatory scarring in the right upper lobe and left base D/ / Von Tse MD / Von Tse MD Interpreting Provider: Von Tse MD Chest CTA 07/29/18 14:34 IMPRESSION: 1. No acute pulmonary emboli. 2. Stable COPD and extensive right lung architectural distortion with apical bullous changes. No effusion or pneumothorax. 3. Redemonstration of extensive right lung bronchiectasis with central mild-moderate chronic bronchial stenosis. There is stable extensive right central bronchial mucoid impaction with bronchial mucoceles likely representing the stable solid nodular densities. 4. No acute pulmonary process. 5. Stable remote non healed left posterolateral rib fractures. D/ / 07/29/2018 16:30:41 Jaswant Carr MD / yareli Interpreting Provider: Jaswant Carr MD - Assessment and plan (1) COPD exacerbation Current Visit: No Status: Resolved Assessment and plan: Pt failed out pt therapy. Will place on Duo neb Q4HR scheduled and prn. IV steroid with plans to taper. Pt afebrile and no leukocytosis. Chest CTA does not show evidence of PE or pneumonia. Will hold off on antibiotic for now as pt was recently on antibiotic. If no improvement, consider pulmonology consult as pt has hx of mucus plugging. Pt known to Dr. Ghosh. (2) Former tobacco use Current Visit: No Status: Chronic Assessment and plan: Pt states he quit 2008 (3) DVT prophylaxis Current Visit: No Status: Acute - Time Spent With Patient Total time spent is greater than 50% in coordination of care (as documented) at patient's floor/unit and/or counseling patient: 25 - 35 minutes
[2018-07-29] MEDS ORDERED: Ondansetron 4 MG/2 ML VIAL IVP PRN (18:12)
[2018-07-29] MEDS ORDERED: Acetaminophen 325 MG TABLET PO PRN (18:12)
[2018-07-29] MEDS ORDERED: Naloxone 0.4 MG/ML INJ IVP PRN (18:12)
[2018-07-29] MEDS ORDERED: Albuterol 2.5 MG/3 ML NEBULIZER IH PRN (18:12)
--- NOTE | 2018-07-29 19:09 | Electrocardiograph Report ---
[employer] Date: 2018-07-29 Pat Name: Cristina Sierra Department: 104 Room: [facility] Gender: M Clinical Services Assistant: TB : [id number] Requested By: Parveen Wall Order Number: [id number] Reading MD: Chico Cole Measurements Intervals [place] Rate: 99 P: 69 UT: 175 QRS: 66 QRSD: 92 T: 72 QT: 293 QTc: 349 Interpretive Statements SINUS RHYTHM Electronically Signed On 07-29-2018 19:07:54 EST by Chico Cole
[2018-07-29] MEDS: Ipratropium/Albuterol Neb 3 ML IH SCH (22:26)
[2018-07-30] MEDS: MethylPREDNISolone 40 MG/ML VIAL IVP SCH ×3 (01:04→17:46)
[2018-07-30] MEDS: Ipratropium/Albuterol Neb 3 ML IH SCH ×6 (04:00→23:53)
[2018-07-30 05:29] LABS: Basophils % 0.1 %; Hematocrit 37.9 % (37.5-50.1); Hemoglobin 13.3 g/dL (12.9-16.9); Immature Granulocytes % 1.2 % (0-4); Lymphocytes # 0.8 K/mcL (0.6-4.6); Lymphocytes % 5.6 %; Mean Corpuscular HGB Conc 35.1 g/dL (31.6-35.5); Mean Corpuscular Hemoglobin 32.9 pg (28.0-33.3); Mean Corpuscular Volume 93.8 fL (83.0-100.0); Mean Platelet Volume 8.7 fL (9.4-12.4); Monocytes # 0.2 K/mcL (0.0-1.3); Monocytes % 1.3 %; Neutrophils # 12.9 K/mcL (1.6-8.9); Platelet Count 304 K/mcL (140-400); Red Blood Count 4.04 M/mcL (4.19-5.50); Red Cell Distribution Width 12.6 % (11.5-14.5); Segmented Neutrophils % 91.8 %
[2018-07-30 05:48] LABS: BUN/Creatinine Ratio 21 (6-26); Blood Urea Nitrogen 12 mg/dL (8-23); Calcium 9.3 mg/dL (8.6-10.3); Carbon Dioxide 25 mEq/L (23-29); Chloride 95 mEq/L (98-107); Glucose 154 mg/dL (70-105); Osmolality,Calculated 271 (280-300); Potassium 3.9 mEq/L (3.5-5.1); Sodium 129 mEq/L (136-145); eGFR For Non-African Americans > 60 (> 60)
[2018-07-30] MEDS: *HR* Enoxaparin 40 MG/0.4 ML SYRINGE SQ SCH (05:51)
--- NOTE | 2018-07-30 10:26 | Internal Med Progress Note ---
Hospitalist Progress Note - Encounter Date of Encounter: 07/30/18 Time of Encounter: 10:00 - Subjective Interval History: Mr Sierra is currently in observation for acute exac COPD/Chronic bronchitis. He remains moderate to high risk due to potential for worsening clinical status. Mr Sierra is up in chair. He still has a lot of secretions and is unable to mobilize. He has had to have a bronch before. No CP. No fever or chills. Tolerating abx. No GI issues. - Exam Vitals: Temp Pulse Resp BP Pulse Ox 98.4 F 115 18 130/79 92 07/30/18 07:44 07/30/18 07:44 07/30/18 07:44 07/30/18 07:44 07/30/18 07:44 Exam: General: Alert and oriented. Comfortable at this time. Some coughing but no sputum. Skin: Normal color, no rash, no lesions. H: Normocephalic. EENT: EOMI, pupils equal. Mucus membranes moist. No lesion. Cardiovascular: Normal S1 & S2, no murmurs or gallops. No JVD. Pulse regular. No tachycardic. Lungs: Diffuse end exp wheeze and inspiratory rhonchi. Abdomen: Soft, non-tender, no rigidity. Normal bowel sounds. Extremities: No deformity, no edema or tenderness, no joint swelling or clubbing. Neurological: Normal cognition and motor skills. Moves all extremities. Pulses: Carotid and radial pulses normal +2. Rest of the physical exam is non contributory - Assessment and Plan (1) COPD exacerbation Current Visit: No Status: Acute Assessment and Plan: Currently on aerosols and steroids. Continues to have issues with secretions. Add Mucinex BID and will ask pulm to see him as he has needed a bronchoscopy in the past for similar symptoms. (2) Chronic bronchitis Current Visit: Yes Status: Chronic Assessment and Plan: Mucinex added today. Continue aerosols and steroids. Pulm input appreciated. (3) HTN (hypertension) Current Visit: No Status: Chronic Assessment and Plan: Controlled at this time. Continue as is. (4) Hyponatremia Current Visit: No Status: Chronic Assessment and Plan: Chronic issue. Following. (5) Former tobacco use Current Visit: No Status: Chronic Assessment and Plan: Pt states he quit 2008 - Time Spent with Patient Total time spent is greater than 50% in coordination of care (as documented) at patient's floor/unit and/or counseling patient: Internal Medicine: Result - Labs CBC & Chem 7: 07/30/18 04:55 07/30/18 04:55 Labs: Short CBC 07/29/18 07/30/18 Range/Units 13:46 04:55 WBC 10.9 14.0 H (4.3-11.1) K/mcL Hgb 14.2 13.3 (12.9-16.9) g/dL Hct 41.1 37.9 (37.5-50.1) % Plt Count 317 304 (140-400) K/mcL Neutrophils # 9.6 H 12.9 H (1.6-8.9) K/mcL BMP 07/29/18 07/30/18 13:46 04:55 Sodium 128 L 129 L Potassium 4.4 3.9 Chloride 94 L 95 L Carbon Dioxide 26 25 BUN 14 12 Creatinine 0.63 L 0.58 L Glucose 132 H 154 H Calcium 9.5 9.3 Cardiac Enzymes 07/29/18 Range/Units 13:46 Troponin I < 0.03 (< 0.04) ng/mL - Impressions Impressions Chest X-Ray 07/29/18 13:11 IMPRESSION: 1. No evidence of pneumonia 2. Pulmonary emphysema with postinflammatory scarring in the right upper lobe and left base D/ / Von Tse MD / Von Tse MD Interpreting Provider: Von Tse MD Chest CTA 07/29/18 14:34 IMPRESSION: 1. No acute pulmonary emboli. 2. Stable COPD and extensive right lung architectural distortion with apical bullous changes. No effusion or pneumothorax. 3. Redemonstration of extensive right lung bronchiectasis with central mild-moderate chronic bronchial stenosis. There is stable extensive right central bronchial mucoid impaction with bronchial mucoceles likely representing the stable solid nodular densities. 4. No acute pulmonary process. 5. Stable remote non healed left posterolateral rib fractures. D/ / 07/29/2018 16:30:41 Jaswant Carr MD / yareli Interpreting Provider: Jaswant Carr MD Consult Discharge Plan - Plan Referrals: Mehrdad Diego MD [Primary Care Provider] - (2) Chronic bronchitis Qualifiers: Chronic bronchitis type: mucopurulent Qualified Code(s): J41.1 - Mucopurulent chronic bronchitis (3) HTN (hypertension) Qualifiers: Hypertension type: essential hypertension Qualified Code(s): I10 - Essential (primary) hypertension
--- NOTE | 2018-07-30 10:42 | Pulmonology Consult Note ---
Date of Encounter: 07/30/18 Time of Encounter: 10:00 Assessment and Plan (1) COPD exacerbation Current Visit: No Status: Acute Patient presenting with symptoms of COPD exacerbation complicated by bronchiectasis patient had recently had Azithromycin for COPD exacerbation as outpatient . This recurrent COPD exacerbation has been a change in the traject ory of the disease. Patient currently not smokes continue schedule bronchodilators to continue steroids will add doxycycline. Patient has extensive bullous disease he . (2) Bronchiectasis Current Visit: Yes Status: Acute To continue steroids to add antibiotics added flutter valve and incentive spirometry and on discharge he should be sent with flutter valve and incentive spirometry so he can use it at home. Qualifiers: Bronchiectasis type: with acute exacerbation Qualified Code(s): J47.1 - Bronchiectasis with (acute) exacerbation (3) Mucus plugging of bronchi Current Visit: Yes Status: Acute His mucus plugging is more in the second generation bronchus and some in the third generation bronchioles bronchoscopy wont help at this point will do intensive bronchopulmonary hygiene. History of Present Illness Consult date: 07/30/18 Requesting physician: Jarrod Pacheco Chief complaint: Increased shortness of breadth History of present illness: 62-year-old male with extensive COPD complicated by severe bullous disease and bronchiectasis comes with the signs and symptoms of COPD exacerbation denies any undue chest pain, chest tightness denies any palpitation or syncope denies any active GERD symptoms or neuro symptoms denies any headache. 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 No evidence of evidence of pneumothorax patient is admitted for COPD exacerbation pulmonary was consulted for any role of bronchoscopy as patient needed bronchoscopy in the past. Past Med Surg Social Fam HX - Past Medical History Medical history: arthritis, asthma, COPD, GERD, hypertension, other Psychiatric history: no psych history - Past Surgical History Additional surgical history: right rotator cuff sx, hernia, Shoulder Replacement - Social History Smoking Status: Former smoker Smokeless Tobacco Status: No Alcohol use: occasionally Drug use: none - Family History Mother Living Status: Hx Family Cardiac Disorders: Yes (mother) Hx Family Respiratory Disorders: Yes (father, grandfather) Hx Family Cancer: Yes (father,cousins) Hx Family GI Disorders: No Hx Family Endocrine Disorder: Yes (mother, brothers x2) Hx Family Neuromuscular Disorders: No Hx Family Neurologic Disorders: No (grandmother) Hx Family HEENT Disorders: No Hx Family Autoimmune Disorders: No Medications and Allergies Lisinopril [Zestril] 10 mg PO DAILY 11/04/15 [History] hydroCHLOROthiazide [Hydrochlorothiazide] 25 mg PO DAILY 11/04/15 [History] Meloxicam 15 mg PO DAILY 08/09/16 [History] Albuterol Sulfate [Ventolin Hfa] 2 puff IH Q4H PRN 10/26/16 [History] Aspirin 81 mg PO DAILY 10/26/16 [History] Budesonide/Formoterol 160/4.5 [Symbicort 160/4.5] 2 puff IH BID 10/26/16 [ History] Doxazosin [Cardura] 4 mg PO HS 10/26/16 [History] Ipratropium/Albuterol Neb [Duoneb] 3 ml IH Q6HR PRN 10/26/16 [History] Omeprazole [PriLOSEC] 20 mg PO DAILY 10/26/16 [History] Albuterol Sulfate [Ventolin Hfa] 2 puff IH Q4H PRN 07/29/18 [History] Aspirin [Adult Aspirin Regimen] 81 mg PO DAILY 07/29/18 [History] Budesonide/Formoterol 160/4.5 [Symbicort 160/4.5] 2 puff IH BID 07/29/18 [Hist ory] Tiotropium [Spiriva] 2 puff IH DAILY@0700 07/29/18 [History] predniSONE [PredniSONE] 10 mg PO AD 07/29/18 [History] Allergy/AdvReac Type Severity Reaction Status Date / Time No Known Allergies Allergy Verified 07/29/18 19:25 All Systems: The remainder of the systems were reviewed and are negative Physical Examination Vital Signs: Vital Signs, Last 4 Hours Temp Pulse Resp BP Pulse Ox 07/30/18 07:44 98.4 F 115 18 130/79 92 Auscultation: bilateral: wheezes (scattered wheezes ) Results - Laboratory Findings CBC and BMP: 07/30/18 04:55 07/30/18 14:23 Abnormal lab findings: Abnormal lab results WBC 14.0 K/mcL (4.3-11.1) H 07/30/18 04:55 RBC 4.04 M/mcL (4.19-5.50) L 07/30/18 04:55 MPV 8.7 fL (9.4-12.4) L 07/30/18 04:55 Neutrophils # 12.9 K/mcL (1.6-8.9) H 07/30/18 04:55 Sodium 129 mEq/L (136-145) L 07/30/18 04:55 Chloride 95 mEq/L (98-107) L 07/30/18 04:55 Creatinine 0.58 mg/dL (0.70-1.30) L 07/30/18 04:55 Glucose 154 mg/dL (70-105) H 07/30/18 04:55 Calculated Osmolality 271 (280-300) L 07/30/18 04:55 Lactic Acid 3.1 mmol/L (0.5-2.2) H 07/29/18 18:18 - Microbiology Findings Microbiology Findings: Microbiology, Last 48 Hours 07/29/18 13:46 Blood Culture - Preliminary Peripheral Venipuncture Culture is incubating and being continuously monitored for growth. Final report to follow. 07/29/18 13:49 Blood Culture - Preliminary Peripheral Venipuncture Culture is incubating and being continuously monitored for growth. Final report to follow. - Clinical Findings Intake & Output: Intake & Output 07/29/18 07/30/18 07/30/18 23:59 07:59 15:59 Intake Total 390 / 390 Output Total 0 / 0 0 / 0 Balance 0 / 0 0 / 0 390 / 390 Weight 81.5 kg 81.5 kg Consult Discharge Plan - Plan Referrals: Mehrdad Diego MD [Primary Care Provider] -
[2018-07-30] MEDS: hydroCHLOROthiazide 25 MG TABLET PO SCH (10:46)
[2018-07-30] MEDS: Doxycycline 100 MG in 0.9 % Sodium Chloride Mini Bag 100 ML IVPB SCH (13:24)
[2018-07-30 14:55] LABS: Magnesium 1.8 mg/dL (1.6-2.6); Potassium 3.7 mEq/L (3.5-5.1)
[2018-07-30] MEDS: Acetylcysteine 10% 2 ML INHSOL IH SCH ×3 (16:13→23:57)
[2018-07-30] MEDS: Budesonide/Formoterol 160/4.5 1 PUFF INH IH SCH (19:46)
[2018-07-30 22:08] LABS: Adenovirus Not Detected (Not Detect); Bordetella Pertussis Not Detected (Not Detect); Chlamydophila pneumoniae Not Detected (Not Detect); Coronavirus 229E Not Detected (Not Detect); Coronavirus HKU1 Not Detected (Not Detect); Coronavirus NL63 Not Detected (Not Detect); Coronavirus OC43 Not Detected (Not Detect); Human Metapneumovirus Not Detected (Not Detect); Human Rhinovirus/Enterovirus Not Detected (Not Detect); Influenza A Subtype 2009 H1 Not Detected (Not Detect); Influenza A Untypeable Not Detected (Not Detect); Influenza B Not Detected (Not Detect); Mycoplasma pneumoniae Not Detected (Not Detect); Parainfluenza Virus 1 Not Detected (Not Detect); Parainfluenza Virus 2 Not Detected (Not Detect); Parainfluenza Virus 3 Not Detected (Not Detect); Parainfluenza Virus 4 Not Detected (Not Detect); Respiratory Syncytial Virus Not Detected (Not Detect)
[2018-07-31] MEDS: MethylPREDNISolone 40 MG/ML VIAL IVP SCH ×3 (00:15→18:12)
[2018-07-31] MEDS: Doxycycline 100 MG in 0.9 % Sodium Chloride Mini Bag 100 ML IVPB SCH ×2 (00:15→12:33)
[2018-07-31] MEDS: Acetylcysteine 10% 2 ML INHSOL IH SCH ×7 (04:21→23:43)
[2018-07-31] MEDS: Ipratropium/Albuterol Neb 3 ML IH SCH ×6 (04:21→23:42)
[2018-07-31] MEDS: *HR* Enoxaparin 40 MG/0.4 ML SYRINGE SQ SCH (06:45)
[2018-07-31] MEDS: Budesonide/Formoterol 160/4.5 1 PUFF INH IH SCH ×2 (07:51→19:29)
--- NOTE | 2018-07-31 09:30 | Internal Med Progress Note ---
Hospitalist Progress Note - Encounter Date of Encounter: 07/31/18 Time of Encounter: 09:20 - Subjective Interval History: Mr Sierra is currently in observation for acute exac COPD/Chronic bronchitis. He remains moderate to high risk due to potential for worsening clinical status. Mr Sierra is still having a lot of difficulty with secretions. No fever or chills. Coughing some. Does not think treatments have helped much. No CP. No GI issues today. - Exam Vitals: Temp Pulse Resp BP Pulse Ox 97.8 F 94 18 128/76 92 07/31/18 07:20 07/31/18 07:20 07/31/18 07:52 07/31/18 07:20 07/31/18 07:52 Exam: General: Alert and oriented. Comfortable at this time. Some coughing but no sputum. Skin: Normal color, no rash, no lesions. H: Normocephalic. EENT: EOMI, pupils equal. Mucus membranes moist. No lesion. Cardiovascular: Normal S1 & S2, no murmurs or gallops. No JVD. Pulse regular. Not tachy at this time. Lungs: Less wheeze today. Some rhonchi noted. Abdomen: Soft, non-tender, no rigidity. Normal bowel sounds. Extremities: No deformity, no edema or tenderness, no joint swelling or clubbing. Neurological: Normal cognition and motor skills. Moves all extremities. Pulses: Carotid and radial pulses normal +2. Rest of the physical exam is non contributory - Assessment and Plan (1) COPD exacerbation Current Visit: No Status: Acute Assessment and Plan: Currently on aerosols and steroids. Continues to have issues with secretions. Currently on Mucinex, mucomyst. Anticipate d/c tomorrow. (2) Chronic bronchitis Current Visit: Yes Status: Chronic Assessment and Plan: On mucolytics, steroids and abx. Anticipate d/c tomorrow. (3) HTN (hypertension) Current Visit: No Status: Chronic Assessment and Plan: Controlled at this time. Continue as is. (4) Hyponatremia Current Visit: No Status: Chronic Assessment and Plan: Chronic issue. Following. (5) Former tobacco use Current Visit: No Status: Chronic Assessment and Plan: Pt states he quit 2008 - Time Spent with Patient Total time spent is greater than 50% in coordination of care (as documented) at patient's floor/unit and/or counseling patient: Internal Medicine: Result - Labs CBC & Chem 7: 07/30/18 04:55 07/30/18 14:23 Labs: BMP 07/30/18 14:23 Potassium 3.7 Consult Discharge Plan - Plan Referrals: Mehrdad Diego MD [Primary Care Provider] - (2) Chronic bronchitis Qualifiers: Chronic bronchitis type: mucopurulent Qualified Code(s): J41.1 - Mucopurulent chronic bronchitis (3) HTN (hypertension) Qualifiers: Hypertension type: essential hypertension Qualified Code(s): I10 - Essential (primary) hypertension
--- NOTE | 2018-07-31 09:34 | Pulmonology Progress Note ---
Date of Encounter: 07/31/18 Time of Encounter: 09:00 Assessment and Plan (1) COPD exacerbation Current Visit: No Status: Acute Continue bronchodilators, steroids, antibiotics on discharge please send him on prolonged steroid taper over 3 weeks (2) Bronchiectasis Current Visit: Yes Status: Acute Patient should use Mucomyst nebulizer with albuterol when he goes home. To complete 10 day course of doxycycline will need to 3 week taper of prednisone as the hospital does not have a couple flutter valve to give a prescription for [facility] to issue for him as an outpatient. To schedule a 2 week follow-up at [place] pul[facility]. Qualifiers: Bronchiectasis type: with acute exacerbation Qualified Code(s): J47.1 - Bronchiectasis with (acute) exacerbation (3) Mucus plugging of bronchi Current Visit: Yes Status: Acute Patient medical plugging is in the second and third generation bronchioles bronchoscopy will not help. Thank you for the consultation pulmonary will sign off. Subjective Principal diagnosis: COPD exacerbation Interval history: Patient is slowly getting better but has a cough with some difficulty in getting his secretions out denies any fever or chills denies any chest pain or chest tightness. Patient was able to walk around with no issues. Objective PUL Vital signs: Last Vital Signs Temp 97.8 F 07/31/18 07:20 Pulse 94 07/31/18 07:20 Resp 18 07/31/18 07:52 BP 128/76 07/31/18 07:20 Pulse Ox 92 07/31/18 07:52 Auscultation: bilateral: wheezes (minimal scattered wheezes) Results - Laboratory Findings CBC and BMP: 07/30/18 04:55 07/30/18 14:23 Abnormal lab findings: Abnormal lab results WBC 14.0 K/mcL (4.3-11.1) H 07/30/18 04:55 RBC 4.04 M/mcL (4.19-5.50) L 07/30/18 04:55 MPV 8.7 fL (9.4-12.4) L 07/30/18 04:55 Neutrophils # 12.9 K/mcL (1.6-8.9) H 07/30/18 04:55 Sodium 129 mEq/L (136-145) L 07/30/18 04:55 Chloride 95 mEq/L (98-107) L 07/30/18 04:55 Creatinine 0.58 mg/dL (0.70-1.30) L 07/30/18 04:55 Glucose 154 mg/dL (70-105) H 07/30/18 04:55 Calculated Osmolality 271 (280-300) L 07/30/18 04:55 Lactic Acid 3.1 mmol/L (0.5-2.2) H 07/29/18 18:18 - Microbiology Findings Microbiology Findings: Microbiology, Last 48 Hours 07/29/18 13:46 Blood Culture - Preliminary Peripheral Venipuncture Culture is incubating and being continuously monitored for growth. Final report to follow. 07/29/18 13:49 Blood Culture - Preliminary Peripheral Venipuncture Culture is incubating and being continuously mon itored for growth. Final report to follow. - Clinical Findings Intake & Output: Intake & Output 07/30/18 07/31/18 07/31/18 23:59 07:59 15:59 Intake Total 100 / 100 100 / 100 360 / 360 Balance 100 / 100 100 / 100 360 / 360 Weight 80.5 kg Consult Discharge Plan - Plan Referrals: Mehrdad Diego MD [Primary Care Provider] -
[2018-07-31] MEDS: hydroCHLOROthiazide 25 MG TABLET PO SCH (09:54)
[2018-07-31] MEDS: Aspirin Enteric Coated 81 MG Tablet PO SCH (09:54)
[2018-08-01] MEDS: MethylPREDNISolone 40 MG/ML VIAL IVP SCH ×4 (00:12→23:39)
[2018-08-01] MEDS: Doxycycline 100 MG in 0.9 % Sodium Chloride Mini Bag 100 ML IVPB SCH ×2 (00:13→12:13)
[2018-08-01] MEDS: Acetylcysteine 10% 2 ML INHSOL IH SCH ×6 (03:26→23:20)
[2018-08-01] MEDS: Ipratropium/Albuterol Neb 3 ML IH SCH ×6 (03:26→23:20)
[2018-08-01 04:40] LABS: Hematocrit 36.8 % (37.5-50.1); Mean Corpuscular HGB Conc 35.3 g/dL (31.6-35.5); Mean Corpuscular Hemoglobin 33.4 pg (28.0-33.3); Mean Corpuscular Volume 94.6 fL (83.0-100.0); Mean Platelet Volume 8.9 fL (9.4-12.4); Platelet Count 284 K/mcL (140-400); Red Blood Count 3.89 M/mcL (4.19-5.50); Red Cell Distribution Width 12.7 % (11.5-14.5)
[2018-08-01 04:57] LABS: BUN/Creatinine Ratio 26 (6-26); Blood Urea Nitrogen 17 mg/dL (8-23); Calcium 9.2 mg/dL (8.6-10.3); Carbon Dioxide 26 mEq/L (23-29); Chloride 95 mEq/L (98-107); Glucose 130 mg/dL (70-105); Magnesium 1.9 mg/dL (1.6-2.6); Osmolality,Calculated 275 (280-300); Potassium 4.2 mEq/L (3.5-5.1); Sodium 131 mEq/L (136-145); eGFR For Non-African Americans > 60 (> 60)
[2018-08-01] MEDS: *HR* Enoxaparin 40 MG/0.4 ML SYRINGE SQ SCH (06:39)
[2018-08-01] MEDS: Budesonide/Formoterol 160/4.5 1 PUFF INH IH SCH ×2 (07:27→19:53)
[2018-08-01] MEDS: hydroCHLOROthiazide 25 MG TABLET PO SCH (07:59)
[2018-08-01] MEDS: Aspirin Enteric Coated 81 MG Tablet PO SCH (07:59)
--- NOTE | 2018-08-01 10:17 | Internal Med Progress Note ---
Hospitalist Progress Note - Encounter Date of Encounter: 08/01/18 Time of Encounter: 09:40 - Exam Vitals: Temp Pulse Resp BP Pulse Ox 98 F 89 16 126/68 92 08/01/18 06:46 08/01/18 06:46 08/01/18 06:46 08/01/18 06:46 08/01/18 06:46 Exam: General: Alert and oriented. Comfortable at this time. Some coughing but no sputum. Skin: Normal color, no rash, no lesions. H: Normocephalic. EENT: EOMI, pupils equal. Mucus membranes moist. No lesion. Cardiovascular: Normal S1 & S2, no murmurs or gallops. No JVD. Pulse regular. Not tachy at this time. Lungs: Less wheeze today. Some rhonchi noted. Abdomen: Soft, non-tender, no rigidity. Normal bowel sounds. Extremities: No deformity, no edema or tenderness, no joint swelling or clubbing. Neurological: Normal cognition and motor skills. Moves all extremities. Pulses: Carotid and radial pulses normal +2. Rest of the physical exam is non contributory - Time Spent with Patient Total time spent is greater than 50% in coordination of care (as documented) at patient's floor/unit and/or counseling patient: 25 - 35 minutes Internal Medicine: Result - Labs CBC & Chem 7: 08/01/18 03:56 08/01/18 03:56 Labs: Short CBC 08/01/18 Range/Units 03:56 WBC 12.5 H (4.3-11.1) K/mcL Hgb 13.0 (12.9-16.9) g/dL Hct 36.8 L (37.5-50.1) % Plt Count 284 (140-400) K/mcL BMP 08/01/18 03:56 Sodium 131 L Potassium 4.2 Chloride 95 L Carbon Dioxide 26 BUN 17 Creatinine 0.66 L Glucose 130 H Calcium 9.2 Consult Discharge Plan - Plan Referrals: Mehrdad Diego MD [Primary Care Provider] -
--- NOTE | 2018-08-01 10:25 | Discharge Summary ---
Orders not resulted at time of discharge: Pending orders 07/29/18 13:46 Culture,Blood [BC] Stat 07/30/18 12:38 Sputum Culture [Culture,Sputum with Gram Stain] [RM] Routine 07/30/18 14:13 EKG [ECG 12 lead ECG] [ECG] Routine Date of Encounter: 08/01/18 Time of Encounter: 09:40 - Discharge Diagnosis (1) COPD exacerbation Status: Acute (2) Mucus plugging of bronchi Status: Acute (3) Chronic bronchitis Status: Chronic Qualifiers: Chronic bronchitis type: mucopurulent Qualified Code(s): J41.1 - Mucopurulent chronic bronchitis (4) HTN (hypertension) Status: Chronic Assessment and Plan: continue home BP medications Qualifiers: Hypertension type: essential hypertension Qualified Code(s): I10 - Essential (primary) hypertension (5) Hyponatremia Status: Chronic Hospital course: Mr. Sierra is a 62 year old male - Time Spent with Patient Total time spent providing and/or coordinating discharge services: - Discharge Medications Home Medications: Lisinopril [Zestril] 10 mg PO DAILY 11/04/15 [History] hydroCHLOROthiazide [Hydrochlorothiazide] 25 mg PO DAILY 11/04/15 [History] Meloxicam 15 mg PO DAILY 08/09/16 [History] Albuterol Sulfate [Ventolin Hfa] 2 puff IH Q4H PRN 10/26/16 [History] Aspirin 81 mg PO DAILY 10/26/16 [History] Budesonide/Formoterol 160/4.5 [Symbicort 160/4.5] 2 puff IH BID 10/26/16 [History] Doxazosin [Cardura] 4 mg PO HS 10/26/16 [History] Ipratropium/Albuterol Neb [Duoneb] 3 ml IH Q6HR PRN 10/26/16 [History] Omeprazole [PriLOSEC] 20 mg PO DAILY 10/26/16 [History] Albuterol Sulfate [Ventolin Hfa] 2 puff IH Q4H PRN 07/29/18 [History] Aspirin [Adult Aspirin Regimen] 81 mg PO DAILY 07/29/18 [History] Budesonide/Formoterol 160/4.5 [Symbicort 160/4.5] 2 puff IH BID 07/29/18 [History] Tiotropium [Spiriva] 2 puff IH DAILY@0700 07/29/18 [History] predniSONE [PredniSONE] 10 mg PO AD 07/29/18 [History] Allergies/Adverse Reactions: Allergy/AdvReac Type Severity Reaction Status Date / Time No Known Allergies Allergy Verified 07/29/18 19:25 Date of admission: 07/29/18 17:35 Primary care physician: Mehrdad Diego MD Consults: 07/29/18 18:12 Consult to Nurse Navigator [CONS] Routine Comment: 07/30/18 10:15 Consult to Pulmonology [CONS] Routine Consulting Provider: [facility] Reason for Consult: COPD. Mucus plugging - has had to have bronch in past. Call Completed: Yes 07/30/18 12:36 Consult to Respiratory Therapy [CONS] Routine Reason for Consult: needs flutter valve Call Completed: Yes Discharging clinician: Jarrod Pacheco Anticipated date of discharge: 08/01/18 - Constitutional Vitals: Temp Pulse Resp BP Pulse Ox 98 F 89 16 126/68 92 08/01/18 06:46 08/01/18 06:46 08/01/18 06:46 08/01/18 06:46 08/01/18 06:46 General appearance: Present: A&O X 3, no acute distress - Patient Status Condition: Good - Discharge Instructions Follow Up With: Mehrdad Diego MD [Primary Care Provider] -
--- NOTE | 2018-08-01 11:49 | Pulmonology Progress Note ---
<Ck Ghosh W - Last Filed: 08/01/18 11:50> Date of Encounter: 08/01/18 Objective PUL Vital signs: Last Vital Signs Temp 98 F 08/01/18 06:46 Pulse 89 08/01/18 06:46 Resp 16 08/01/18 07:28 BP 126/68 08/01/18 06:46 Pulse Ox 97 08/01/18 07:28 Results - Laboratory Findings CBC and BMP: 08/01/18 03:56 08/01/18 03:56 Abnormal lab findings: Abnormal lab results WBC 12.5 K/mcL (4.3-11.1) H 08/01/18 03:56 RBC 3.89 M/mcL (4.19-5.50) L 08/01/18 03:56 Hct 36.8 % (37.5-50.1) L 08/01/18 03:56 MCH 33.4 pg (28.0-33.3) H 08/01/18 03:56 MPV 8.9 fL (9.4-12.4) L 08/01/18 03:56 Neutrophils # 12.9 K/mcL (1.6-8.9) H 07/30/18 04:55 Sodium 131 mEq/L (136-145) L 08/01/18 03:56 Chloride 95 mEq/L (98-107) L 08/01/18 03:56 Creatinine 0.66 mg/dL (0.70-1.30) L 08/01/18 03:56 Glucose 130 mg/dL (70-105) H 08/01/18 03:56 Calculated Osmolality 275 (280-300) L 08/01/18 03:56 Lactic Acid 3.1 mmol/L (0.5-2.2) H 07/29/18 18:18 - Clinical Findings Intake & Output: Intake & Output 07/31/18 08/01/18 08/01/18 23:59 07:59 15:59 Intake Total 340 / 340 100 / 100 480 / 480 Balance 340 / 340 100 / 100 480 / 480 Weight 80 kg Consult Discharge Plan - Plan Referrals: Mehrdad Diego MD [Primary Care Provider] - - Attending Attestation I examined this patient and my medical decision-making was reviewed with the Resident Physician. I agree with the documented findings, disposition and treatment plan as described except to the extent set forth below. We independently had [id number] contact with the patient Patient seen and examined at bedside Labs, radiology, chart personally reviewed. Impression: AECOPD Bronchiectasis with extensive Mucous Plugging Recs: Continue schedule bronchodilators and metered-dose inhaler. Transition to enteral steroids to complete two-week taper (prednisone 40mg) agree with antibiotics A bronchoscopy is recommended. The procedure , risks, benefits, complications, and expected outcomes have been reviewed. Benefits of diagnosis, as well as risks to include bleeding, infection, pneumothorax which may require surgical intervention, and in a small population. The patient is aware that sometimes test is nondiagnostic. Discussed with patient and he agrees to proceed. <Dolores Cruz - Last Filed: 08/01/18 13:43> Date of Encounter: 08/01/18 Time of Encounter: 11:48 Assessment and Plan (1) COPD exacerbation Current Visit: Yes Status: Resolved 07/29 Chest CTA: stable COPD, R lung architectural distortion and apical bullous changes, extensive R lung bronchiectasis with extensive bronchial stenosis, extensive R central bronchial mucoid impaction; no PE, pleural effusion, pneumo thorax, or acute pulmonary process; stable remote L rib fracture non-healed Plan: Slow steroid taper over 3 weeks Complete 7 day course doxycycline Continue bronchodilators (2) Bronchiectasis Current Visit: Yes Status: Acute Plan: As above Mucomyst nebulizer with albuterol for use at home Rx for flutter valve Qualifiers: Bronchiectasis type: with acute exacerbation Qualified Code(s): J47.1 - Bronchiectasis with (acute) exacerbation (3) Mucus plugging of bronchi Current Visit: Yes Status: Chronic Plan: Bronchoscopy tomorrow with BAL Will send BAL washings for analysis, culture Subjective Principal diagnosis: COPD exacerbation Interval history: Seen and examined at bedside. Patient's is also present in the room at time of my exam. Patient feels his breathing is slightly better than when he was admitted, however his cough hasn't improved and states he's still unable to produce sputum. He is concerned that if he were to go home today, still unable to produce sputum and clear his chest congestion, he'd end up right back in the hospital. Denies fevers, chills, or chest pressure. Objective PUL Vital signs: Last Vital Signs Temp 98 F 08/01/18 06:46 Pulse 89 08/01/18 06:46 Resp 16 08/01/18 07:28 BP 126/68 08/01/18 06:46 Pulse Ox 97 08/01/18 07:28 General appearance: no acute distress, alert Eyes: nonicteric ENT: oropharynx moist Neck: supple Auscultation: bilateral: diminished breath sounds, wheezes (inhalation and exh alation), rhonchi Cardiovascular: regular rate and rhythm Integumentary: normal Extremities: no cyanosis, no clubbing, pink and warm Musculoskeletal: no deformities normal mental status, non-focal exam, pupils equal and round, CN II-XII normal mood appropriate, affect normal Results - Laboratory Findings CBC and BMP: 08/01/18 03:56 08/01/18 03:56 Abnormal lab findings: Abnormal lab results WBC 12.5 K/mcL (4.3-11.1) H 08/01/18 03:56 RBC 3.89 M/mcL (4.19-5.50) L 08/01/18 03:56 Hct 36.8 % (37.5-50.1) L 08/01/18 03:56 MCH 33.4 pg (28.0-33.3) H 08/01/18 03:56 MPV 8.9 fL (9.4-12.4) L 08/01/18 03:56 Neutrophils # 12.9 K/mcL (1.6-8.9) H 07/30/18 04:55 Sodium 131 mEq/L (136-145) L 08/01/18 03:56 Chloride 95 mEq/L (98-107) L 08/01/18 03:56 Creatinine 0.66 mg/dL (0.70-1.30) L 08/01/18 03:56 Glucose 130 mg/dL (70-105) H 08/01/18 03:56 Calculated Osmolality 275 (280-300) L 08/01/18 03:56 Lactic Acid 3.1 mmol/L (0.5-2.2) H 07/29/18 18:18 - Clinical Findings Intake & Output: Intake & Output 07/31/18 08/01/18 08/01/18 23:59 07:59 15:59 Intake Total 340 / 340 100 / 100 480 / 480 Balance 340 / 340 100 / 100 480 / 480 Weight 80 kg
--- NOTE | 2018-08-01 13:14 | Internal Med Progress Note ---
<Jose Myers - Last Filed: 08/01/18 16:03> Hospitalist Progress Note - Encounter Date of Encounter: 08/01/18 Time of Encounter: 09:40 - Subjective Interval History: Patient was examined bedside for a follow up on his COPD. Patient reports no shortness of breath recently but no improvement or expectoration of mucus. Cough was noted while eliciting history from patient, but patient reports no productivity during hospital stay except for a minor amount of clear mucus he had collected in a specimen jar. Regarding the productive cough he had last week, patient reports he has not coughed up blood, no green mucus but mucus has been darker. Patient appeared to be doing well, he noted that he has not had shortness of br eath recently but he also had shortness of breath last week from [place], exacerbating his COPD. He is still unable to expectorate any significant amount of mucus. - Exam Vitals: Temp Pulse Resp BP Pulse Ox 98 F 108 16 116/71 95 08/01/18 12:19 08/01/18 12:19 08/01/18 12:19 08/01/18 12:19 08/01/18 12:19 Exam: General: Alert and oriented. Comfortable at this time. Some coughing but no sputum. Skin: Normal color, no rash, no lesions. H: Normocephalic. EENT: EOMI, pupils equal. Mucus membranes moist. No lesion. Cardiovascular: Normal S1 & S2, no murmurs or gallops. No JVD. Pulse regular. Not tachy at this time. Lungs: Inspiratory and expiratory wheezes noted on exam. Abdomen: Soft, non-tender, no rigidity. Normal bowel sounds. Extremities: No deformity, no edema or tenderness, no joint swelling or clubbing. Neurological: Normal cognition and motor skills. Moves all extremities. Pulses: Carotid and radial pulses normal +2. Rest of the physical exam is non contributory - Assessment and Plan (1) COPD exacerbation Current Visit: Yes Status: Acute Assessment and Plan: Currently on aerosols and steroids. Continues to have issues with secretions. Currently on Mucinex, mucomyst. (2) Mucus plugging of bronchi Current Visit: Yes Status: Acute Assessment and Plan: Continues to have issues expectorating mucus Currently on Mucinex, mucomyst. (3) Chronic bronchitis Current Visit: Yes Status: Chronic Assessment and Plan: Continue Abx, steroids and mucolytics. (4) HTN (hypertension) Current Visit: No Status: Chronic Assessment and Plan: Currently controlled. Continue as is (5) Hyponatremia Current Visit: No Status: Chronic Assessment and Plan: Chronic. Most recent sodium was 131. Following - Time Spent with Patient Total time spent is greater than 50% in coordination of care (as documented) at patient's floor/unit and/or counseling patient: 25 - 35 minutes Internal Medicine: Result - Labs CBC & Chem 7: 08/01/18 03:56 08/01/18 03:56 Labs: Short CBC 08/01/18 Range/Units 03:56 WBC 12.5 H (4.3-11.1) K/mcL Hgb 13.0 (12.9-16.9) g/dL Hct 36.8 L (37.5-50.1) % Plt Count 284 (140-400) K/mcL BMP 08/01/18 03:56 Sodium 131 L Potassium 4.2 Chloride 95 L Carbon Dioxide 26 BUN 17 Creatinine 0.66 L Glucose 130 H Calcium 9.2 Consult Discharge Plan - Plan Referrals: Mehrdad Diego MD [Primary Care Provider] - <Jarrod Pacheco - Last Filed: 08/01/18 18:31> Hospitalist Progress Note - Encounter Date of Encounter: 08/01/18 - Exam Vitals: Temp Pulse Resp BP Pulse Ox 98.1 F 101 18 121/69 95 08/01/18 15:05 08/01/18 15:05 08/01/18 17:02 08/01/18 15:05 08/01/18 17:02 - Assessment and Plan (1) COPD exacerbation Current Visit: Yes Status: Resolved (2) Chronic bronchitis Current Visit: Yes Status: Chronic (3) HTN (hypertension) Current Visit: No Status: Chronic (4) Hyponatremia Current Visit: No Status: Chronic (5) Former tobacco use Current Visit: No Status: Chronic - Time Spent with Patient Total time spent is greater than 50% in coordination of care (as documented) at patient's floor/unit and/or counseling patient: Internal Medicine: Result - Labs CBC & Chem 7: 08/01/18 03:56 08/01/18 03:56 Labs: Short CBC 08/01/18 Range/Units 03:56 WBC 12.5 H (4.3-11.1) K/mcL Hgb 13.0 (12.9-16.9) g/dL Hct 36.8 L (37.5-50.1) % Plt Count 284 (140-400) K/mcL BMP 08/01/18 03:56 Sodium 131 L Potassium 4.2 Chloride 95 L Carbon Dioxide 26 BUN 17 Creatinine 0.66 L Glucose 130 H Calcium 9.2 - Attending Attestation The history, physical exam, and medical decision making was performed by the medical student either while I was physically present and actively involved or I personally re-performed the exam and medical decision making. I have verified the accuracy of the medical student's documentation with regards to the history, physical exam findings, and medical decision making on 08/01/18. Mr Sierra is currently in observation for acute exac COPD and mucus plugging. He remains moderate risk. Mr Sierra is up and walking. He continues to receive IV abx, steroids, oxygen, percussive therapy. He still cannot mobilize sputum. He was seen by pulm today and there is plan for inpatient bronchoscopy tomorrow (Pt insists that if he goes home and can't get secretions up he will return for admission again). Exam alert comfortable Mucus membranes moist Heart not tachy Wheeze diffusely. Abd soft No edema I/P 1. Acute exac COPD - changed to PO steroids. Continue IV abx, nebulizers, mucomyst, percussion 2. Mucus plugging/chronic bronchitis Further diagnoses and plan as above. Anticipate discharge after bronch tomorrow. <Jose Myers - Last Filed: 08/01/18 16:03> (3) Chronic bronchitis Qualifiers: Chronic bronchitis type: mucopurulent Qualified Code(s): J41.1 - Mucopurulent chronic bronchitis (4) HTN (hypertension) Qualifiers: Hypertension type: essential hypertension Qualified Code(s): I10 - Essential (primary) hypertension <Jarrod Pacheco - Last Filed: 08/01/18 18:31> (2) Chronic bronchitis Qualifiers: Chronic bronchitis type: mucopurulent Qualified Code(s): J41.1 - Mucopurulent chronic bronchitis (3) HTN (hypertension) Qualifiers: Hypertension type: essential hypertension Qualified Code(s): I10 - Essential (primary) hypertension
[2018-08-02] MEDS: Doxycycline 100 MG in 0.9 % Sodium Chloride Mini Bag 100 ML IVPB SCH (00:59)
[2018-08-02] MEDS: Acetylcysteine 10% 2 ML INHSOL IH SCH ×3 (03:18→11:19)
[2018-08-02] MEDS: Ipratropium/Albuterol Neb 3 ML IH SCH ×3 (03:18→11:19)
[2018-08-02] MEDS: *HR* Enoxaparin 40 MG/0.4 ML SYRINGE SQ SCH (06:25)
--- NOTE | 2018-08-02 07:32 | Anesthesia Evaluation PreOp ---
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 History: Denies Any Significant HX Other Medical History: GERD, Other (Chronic Hyponatremia) Anesthesia History: No Prior Anesthetic Complications, Past Anesthesia (TSR) Alcohol Use: occasionally Drug use: none Medications and Allergies Lisinopril [Zestril] 10 mg PO DAILY 11/04/15 [History] hydroCHLOROthiazide [Hydrochlorothiazide] 25 mg PO DAILY 11/04/15 [History] Meloxicam 15 mg PO DAILY 08/09/16 [History] Albuterol Sulfate [Ventolin Hfa] 2 puff IH Q4H PRN 10/26/16 [History] Aspirin 81 mg PO DAILY 10/26/16 [History] Budesonide/Formoterol 160/4.5 [Symbicort 160/4.5] 2 puff IH BID 10/26/16 [History] Doxazosin [Cardura] 4 mg PO HS 10/26/16 [History] Ipratropium/Albuterol Neb [Duoneb] 3 ml IH Q6HR PRN 10/26/16 [History] Omeprazole [PriLOSEC] 20 mg PO DAILY 10/26/16 [History] Albuterol Sulfate [Ventolin Hfa] 2 puff IH Q4H PRN 07/29/18 [History] Aspirin [Adult Aspirin Regimen] 81 mg PO DAILY 07/29/18 [History] Budesonide/Formoterol 160/4.5 [Symbicort 160/4.5] 2 puff IH BID 07/29/18 [History] Tiotropium [Spiriva] 2 puff IH DAILY@0700 07/29/18 [History] predniSONE [PredniSONE] 10 mg PO AD 07/29/18 [History] Allergy/AdvReac Type Severity Reaction Status Date / Time No Known Allergies Allergy Verified 07/29/18 19:25 - Meds/Allergy Pre-op Review Medications Reviewed: Yes Allergies Reviewed: Yes Beta Blockers on Current Med List: No Anesthesia Results - Labs 08/01/18 03:56 08/01/18 03:56 TTE 12/2016: LVEF 60-65%. Normal LV chamber size, wall thickness and function. Moderate left ventricular diastolic dysfunction. Normal right ventricular structure and function. No evidence of pulmonary hypertension. No significant valvular dysfunction. History of septal occluder device. No evidence of a PFO by color Doppler. Agitated saline not administered. PFT 12/2016: FVC 68+13 % PREDICTED FEV1 43+17 % PREDICTED MVV 42 % PREDICTED DLCO 69 % PREDICTED? - Imaging EKG: report reviewed (SR) Anesthesia Exam Vital Signs/O2 Sat, Most Current Temp Pulse Resp BP Pulse Ox 98.4 F 92 16 126/75 98 08/02/18 03:10 08/02/18 03:10 08/02/18 03:18 08/02/18 03:10 08/02/18 03:18 NPO (# of Hours): > 8 hrs Pain Scale: 0 Pain Scale Used: Numeric (1 - 10) - HEENT Pupil (Motor): Pupils equal, EOMI Mallampati: III Teeth: Normal Oral Opening: Greater than 3 - RELIGIOUS RITUAL SLAUGHTERER LOC: Oriented RELIGIOUS RITUAL SLAUGHTERER Motor: Normal RUE, Normal LUE, Normal RLE, Normal LLE, Normal Face RELIGIOUS RITUAL SLAUGHTERER Sensory: Normal: RUE, LUE, RLE, LLE, Face - Cardiac Rhythm: Regular Murmur: None JVD: No Carotid Bruit: No - Pulmonary Breath Sounds: bilateral Clear Respiratory Effort: Symmetrical Anesthesia Assess/Plan ASA Score: 3 Anesthetic Plan: General, MAC Autologous Blood: Yes Monitoring Plan: Standard Monitors Recovery Plan: PACU
[2018-08-02] MEDS ORDERED: *HR* Propofol 200 MG/20 ML VIAL IVP ONE (08:01)
[2018-08-02] MEDS: Budesonide/Formoterol 160/4.5 1 PUFF INH IH SCH (08:08)
[2018-08-02] MEDS ORDERED: *HR* Midazolam HCl 2 MG/2 ML VIAL ONE (08:17)
[2018-08-02] MEDS ORDERED: Ondansetron 4 MG/2 ML VIAL IVP ONE (08:22)
[2018-08-02] MEDS ORDERED: *HR* OxyCODONE Immed Rel 5 MG TABLET PO PRN (08:22)
--- NOTE | 2018-08-02 08:26 | Pulmonology Progress Note ---
<Ck Ghosh W - Last Filed: 08/02/18 08:59> Date of Encounter: 08/02/18 Objective PUL Vital signs: Last Vital Signs Temp 98 F 08/02/18 08:28 Pulse 92 08/02/18 08:48 Resp 26 08/02/18 08:48 BP 141/94 08/02/18 08:48 Pulse Ox 95 08/02/18 08:48 Results - Laboratory Findings CBC and BMP: 08/01/18 03:56 08/01/18 03:56 Abnormal lab findings: Abnormal lab results WBC 12.5 K/mcL (4.3-11.1) H 08/01/18 03:56 RBC 3.89 M/mcL (4.19-5.50) L 08/01/18 03:56 Hct 36.8 % (37.5-50.1) L 08/01/18 03:56 MCH 33.4 pg (28.0-33.3) H 08/01/18 03:56 MPV 8.9 fL (9.4-12.4) L 08/01/18 03:56 Neutrophils # 12.9 K/mcL (1.6-8.9) H 07/30/18 04:55 Sodium 131 mEq/L (136-145) L 08/01/18 03:56 Chloride 95 mEq/L (98-107) L 08/01/18 03:56 Creatinine 0.66 mg/dL (0.70-1.30) L 08/01/18 03:56 Glucose 130 mg/dL (70-105) H 08/01/18 03:56 Calculated Osmolality 275 (280-300) L 08/01/18 03:56 Lactic Acid 3.1 mmol/L (0.5-2.2) H 07/29/18 18:18 - Clinical Findings Intake & Output: Intake & Output 08/01/18 08/02/18 08/02/18 23:59 07:59 15:59 Intake Total 400 / 400 Balance 400 / 400 Weight 81.1 kg Consult Discharge Plan - Plan Referrals: Cayetano Landin MD [Partnered Physician] - 08/03/18 5:35 pm Mehrdad Diego MD [Primary Care Provider] - 08/08/18 2:00 pm - Attending Attestation I examined this patient and my medical decision-making was reviewed with the Resident Physician. I agree with the documented findings, disposition and treatment plan as described except to the extent set forth below. We independently had [id number] contact with the patient Patient seen and examined at bedside Labs, radiology, chart personally reviewed. Impression: * AECOPD * Bronchiectasis * Mucous Plugging Recs: Status post bronchoscopy without untoward effects there was fairly thin mucoid secretions primarily in the right upper lobe with scattered throughout the tracheobronchial tree suctioning was performed and subsequently a bronchoalveolar lavage was performed in the right upper lobe. We will follow-up on cell count, cytology and culture from BAL Continue steroid taper to complete 2 weeks Discharge on antimicrobials at this point doxycycline is reasonable to complete an additional week of treatment Airway clearance (acapella) at least 3 times daily preferably combined with bronchodilator Outpatient pulmonary follow-up in 1-2 weeks Pulmonary will sign off please call with any questions <Dolores Cruz - Last Filed: 08/02/18 11:49> Date of Encounter: 08/02/18 Time of Encounter: 11:19 Assessment and Plan (1) COPD exacerbation Current Visit: No Status: Resolved 07/29 Chest CTA: stable COPD, R lung architectural distortion and apical bullous changes, extensive R lung bronchiectasis with extensive bronchial stenosis, extensive R central bronchial mucoid impaction; no PE, pleural effusion, pneumothorax, or acute pulmonary process; stable remote L rib fracture non- healed 08/02 Bronchoscopy: suctioning and lavage of RUL performed, showed thin, mucoid secretions--tolerated well by patient Plan: Slow steroid taper to complete 2 week course Continue doxycycline x7 days at discharge Will follow up results from BAL for cell count, cytology, and culture Continue bronchodilators Acapella TID--ideally, use with bronchodilator Return to pulmonology office for outpatient follow up in 1-2 weeks (2) Bronchiectasis Current Visit: Yes Status: Acute Plan: As above Qualifiers: Bronchiectasis type: with acute exacerbation Qualified Code(s): J47.1 - Bronchiectasis with (acute) exacerbation (3) Mucus plugging of bronchi Current Visit: No Status: Chronic Bronchoscopy with suctioning and BAL well tolerated by patient Plan: As above BAL washings sent for cytology, culture, and cell count--will follow up on these results Subjective Principal diagnosis: COPD exacerbation Interval history: Seen and examined at bedside. Patient is doing well after his bronchoscopy this morning and feels he is breathing better. He is eager to return home. Denies any sputum production with cough, but states he feels like he will be able to have a productive cough soon. Denies fevers, chills, chest pressure, wheezing, shortness of breath. Objective PUL Vital signs: Last Vital Signs Temp 98.4 F 08/02/18 07:40 Pulse 89 08/02/18 07:40 Resp 16 08/02/18 07:40 BP 144/89 08/02/18 07:40 Pulse Ox 95 08/02/18 07:40 General appearance: no acute distress ENT: oropharynx moist Neck: supple Effort: normal Auscultation: bilateral: diminished breath sounds, rhonchi (minimal, scattered) Cardiovascular: regular rate and rhythm Integumentary: normal Extremities: no cyanosis, no edema, no clubbing, pink and warm Musculoskeletal: no deformities normal mental status, non-focal exam, pupils equal and round, CN II-XII normal mood appropriate, affect normal Results - Laboratory Findings CBC and BMP: 08/01/18 03:56 08/01/18 03:56 Abnormal lab findings: Abnormal lab results WBC 12.5 K/mcL (4.3-11.1) H 08/01/18 03:56 RBC 3.89 M/mcL (4.19-5.50) L 08/01/18 03:56 Hct 36.8 % (37.5-50.1) L 08/01/18 03:56 MCH 33.4 pg (28.0-33.3) H 08/01/18 03:56 MPV 8.9 fL (9.4-12.4) L 08/01/18 03:56 Neutrophils # 12.9 K/mcL (1.6-8.9) H 07/30/18 04:55 Sodium 131 mEq/L (136-145) L 08/01/18 03:56 Chloride 95 mEq/L (98-107) L 08/01/18 03:56 Creatinine 0.66 mg/dL (0.70-1.30) L 08/01/18 03:56 Glucose 130 mg/dL (70-105) H 08/01/18 03:56 Calculated Osmolality 275 (280-300) L 08/01/18 03:56 Lactic Acid 3.1 mmol/L (0.5-2.2) H 07/29/18 18:18 - Clinical Findings Intake & Output: Intake & Output 08/01/18 08/02/18 08/02/18 23:59 07:59 15:59 Intake Total 400 / 400 Balance 400 / 400 Weight 81.1 kg
--- NOTE | 2018-08-02 08:59 | Anesthesia Evaluation Post Op ---
Date of Encounter: 08/02/18 Time of Encounter: 08:59 - Vital Signs Vital Signs: Vital Signs/O2 Sat, Most Current Temp Pulse Resp BP Pulse Ox 98 F 92 26 141/94 95 08/02/18 08:28 08/02/18 08:48 08/02/18 08:48 08/02/18 08:48 08/02/18 08:48 - Lungs Lungs: Clear Ascult./Percussion - Airway Airway: Non-obstructed - Cardiovascular Regular Rate - Mental Status Mental Status: Alert & Oriented, Answers Appropriately - Pain Pain Scale: 0 Pain Scale used: Numeric (1 - 10) - Nausea Vomiting Nausea Vomiting: Not Present - Hydration Hydration: Ice chips, Has not voided - Discharge PostOp Status: Transfer Patient to floor
--- NOTE | 2018-08-02 09:37 | Discharge Summary ---
<Andrew Diamond - Last Filed: 08/02/18 11:37> Orders not resulted at time of discharge: Pending orders 07/29/18 13:46 Culture,Blood [BC] Stat 07/30/18 12:38 Sputum Culture [Culture,Sputum with Gram Stain] [RM] Routine 08/02/18 08:22 Cytology [PTH] Routine 08/02/18 08:39 AFB Culture, Respiratory [TB] Routine Cell Count w Diff, Body Fluid [BF] Routine Fungal Culture [MYC] Routine 08/02/18 08:42 Culture,Respiratory [RM] Routine Gram Stain [RM] Routine Date of Encounter: 08/02/18 - Discharge Diagnosis (1) COPD exacerbation Status: Resolved (2) HTN (hypertension) Status: Chronic Qualifiers: Hypertension type: essential hypertension Qualified Code(s): I10 - Essential (primary) hypertension (3) Former tobacco use Status: Chronic (4) Hyponatremia Status: Chronic (5) Chronic bronchitis Status: Chronic Qualifiers: Chronic bronchitis type: mucopurulent Qualified Code(s): J41.1 - Mucopurulent chronic bronchitis Hospital course: Mr. Sierra is a 62 year old male - Time Spent with Patient Total time spent providing and/or coordinating discharge services: - Discharge Medications Prescriptions: Doxycycline 100 mg PO BID #14 capsule predniSONE [PredniSONE] 10 mg PO AD #30 tablet Home Medications: Lisinopril [Zestril] 10 mg PO DAILY 11/04/15 [History] hydroCHLOROthiazide [Hydrochlorothiazide] 25 mg PO DAILY 11/04/15 [History] Albuterol Sulfate [Ventolin Hfa] 2 puff IH Q4H PRN 10/26/16 [History] Aspirin 81 mg PO DAILY 10/26/16 [History] Budesonide/Formoterol 160/4.5 [Symbicort 160/4.5] 2 puff IH BID 10/26/16 [History] Doxazosin [Cardura] 4 mg PO HS 10/26/16 [History] Ipratropium/Albuterol Neb [Duoneb] 3 ml IH Q6HR PRN 10/26/16 [History] Omeprazole [PriLOSEC] 20 mg PO DAILY 10/26/16 [History] Albuterol Sulfate [Ventolin Hfa] 2 puff IH Q4H PRN 07/29/18 [History] Aspirin [Adult Aspirin Regimen] 81 mg PO DAILY 07/29/18 [History] Budesonide/Formoterol 160/4.5 [Symbicort 160/4.5] 2 puff IH BID 07/29/18 [History] Tiotropium [Spiriva] 2 puff IH DAILY@0700 07/29/18 [History] Acetaminophen [Tylenol] 650 mg PO Q6HR PRN tablet 08/02/18 [Rx] Doxycycline 100 mg PO BID #14 capsule 08/02/18 [Rx] GuaiFENesin ER [Mucinex] 1,200 mg PO BID tbbp.12hr 08/02/18 [Rx] predniSONE [PredniSONE] 10 mg PO AD #30 tablet 08/02/18 [Rx] Allergies/Adverse Reactions: Allergy/AdvReac Type Severity Reaction Status Date / Time No Known Allergies Allergy Verified 07/29/18 19:25 Date of admission: 07/29/18 17:35 Primary care physician: Mehrdad Diego MD Consults: 07/29/18 18:12 Consult to Nurse Navigator [CONS] Routine Comment: 07/30/18 10:15 Consult to Pulmonology [CONS] Routine Consulting Provider: [facility] [place] Reason for Consult: COPD. Mucus plugging - has had to have bronch in past. Call Completed: Yes 07/30/18 12:36 Consult to Respiratory Therapy [CONS] Routine Reason for Consult: needs flutter valve Call Completed: Yes - Constitutional Vitals: Temp Pulse Resp BP Pulse Ox 97.9 F 82 16 173/102 100 08/02/18 11:34 08/02/18 11:34 08/02/18 11:34 08/02/18 11:34 08/02/18 11:34 - Patient Status Disposition: Home, Self-Care Condition: Good - Discharge Instructions Instructions: Chronic Obstructive Pulmonary Disease (DC) Follow Up With: Cayetano Landin MD [Partnered Physician] - 08/03/18 5:35 pm Jaleesa Hartley MD [Partnered Physician] - (Your appointment has been requested. Our offices will call you with a date and time. ) Mehrdad Diego MD [Primary Care Provider] - 08/08/18 2:00 pm <Jose Myers - Last Filed: 08/02/18 13:50> - NOTES TO OUTPATIENT PROVIDER Notes to Outpatient Provider: Taper PO steroids over 2 weeks, finish 14 day course of doxycycline. Continue bronchodilator therapy. Evaluate for home oxygen Orders not resulted at time of discharge: Pending orders 07/29/18 13:46 Culture,Blood [BC] Stat 07/30/18 12:38 Sputum Culture [Culture,Sputum with Gram Stain] [RM] Routine 08/02/18 08:22 Cytology [PTH] Routine 08/02/18 08:39 AFB Culture, Respiratory [TB] Routine Cell Count w Diff, Body Fluid [BF] Routine Fungal Culture [MYC] Routine 08/02/18 08:42 Culture,Respiratory [RM] Routine Gram Stain [RM] Routine Date of Encounter: 08/02/18 Time of Encounter: 09:30 - Discharge Diagnosis (1) COPD exacerbation Priority: Primary Status: Chronic Assessment and Plan: Lungs on examination were bilaterally clear, with previous wheezing resolved. Patient reports no shortness of breath and has been walking the hallways of [facility] without any difficulty. Continue home meds, taper steroids over 2 weeks. Complete 14 day course of doxycycline (on day 4 currently) (2) Chronic bronchitis Priority: Primary Status: Chronic Assessment and Plan: Patient reports no shortness of breath, labored breathing, and on exam lungs are bilaterally clear with no wheezes noted and no accessory muscle use. Continue home meds. Qualifiers: Chronic bronchitis type: mucopurulent Qualified Code(s): J41.1 - Mucopurulent chronic bronchitis (3) HTN (hypertension) Priority: Secondary Status: Chronic Assessment and Plan: HTN appears well controlled with medication (BP elevated today prior to bronchoscopy, but otherwise throughout hospital stay within normal range). Continue home meds Qualifiers: Hypertension type: essential hypertension Qualified Code(s): I10 - Essential (primary) hypertension (4) Hyponatremia Priority: Secondary Status: Chronic Assessment and Plan: Hyponatremia noted on labs during hospitalization without neurologic deficit or cognitive changes. Patient reports no fatigue, no nausea, no dizziness, no gait disturbances, no forgetfulness, no confusion, no lethargy, no muscle cramps. Due to lack of symptoms of hyponatremia, no supplementation advised at this time. Follow up with primary care provider. Hospital course: Mr. Sierra is a 62 year old male who was admitted following a visit to ER for shortness of breath on 07/29/18. Hx of COPD, 40 pack-year smoking history (quit in 2008), and tuberculosis in his 30s, along with PMH of HTN (well controlled with lisinopril, HCTZ and Cardura) and GERD (well controlled with omeprazole). He reported productive cough 3 days prior to his admission but minimal sputum production in days leading to admission. Started on acetylcysteine and guaifenesin with no improvement of wheezing or lack of production of cough. Percussion therapy initiated with no improvement in production. Pulmonary consult noted mucus plugging on R secondary and tertiary bronchi, scheduled bronchoscopy for 08/02/18. Bronchoscopy was performed with bronchialveolar lavage; showed moderate mucus in the R lung and mucus was subsequently removed. Patient reports improvement in breathing, wheezes were noted to be resolved on exam and lungs were bilaterally clear to auscultation. - Time Spent with Patient Total time spent providing and/or coordinating discharge services: Less than 30 minutes Date of admission: 07/29/18 17:35 Primary care physician: Mehrdad Diego MD Consults: 07/29/18 18:12 Consult to Nurse Navigator [CONS] Routine Comment: 07/30/18 10:15 Consult to Pulmonology [CONS] Routine Consulting Provider: [facility] Reason for Consult: COPD. Mucus plugging - has had to have bronch in past. Call Completed: Yes 07/30/18 12:36 Consult to Respiratory Therapy [CONS] Routine Reason for Consult: needs flutter valve Call Completed: Yes Discharging clinician: Carina Simpson Anticipated date of discharge: 08/02/18 - Constitutional Vitals: Temp Pulse Resp BP Pulse Ox 99.1 F 93 21 151/94 94 08/02/18 08:58 08/02/18 08:58 08/02/18 08:58 08/02/18 08:58 08/02/18 08:58 General appearance: Present: A&O X 3, no acute distress Exam: General: Alert and oriented. Comfortable at this time. Some coughing but no sputum. Skin: Normal color, no rash, no lesions. H: Normocephalic. EENT: EOMI, pupils equal. Mucus membranes moist. No lesion. Cardiovascular: Normal S1 & S2, no murmurs or gallops. No JVD. Pulse regular. Not tachy at this time. Lungs: Lungs bilaterally clear to auscultation. Abdomen: Soft, non-tender, no rigidity. Normal bowel sounds. Extremities: No deformity, no edema or tenderness, no joint swelling or clubbing. Neurological: Normal cognition and motor skills. Moves all extremities. Pulses: Carotid and radial pulses normal +2. Rest of the physical exam is non contributory <Carina Simpson - Last Filed: 08/02/18 16:16> - NOTES TO OUTPATIENT PROVIDER Notes to Outpatient Provider: Clarification to above, he does not require home O2, he weaned to room air prior to discharge with no need for O2 eval. He had documented BP elevation in pacu that resolved with recheck upon return to the unit day of dc. Follow up outpt for further bp management and monitoring is re quired. He appears to have chronic hyponatremia without neuro/cognitive changes, defer further work up to outpt provider Orders not resulted at time of discharge: Pending orders 07/29/18 13:46 Culture,Blood [BC] Stat 07/30/18 12:38 Sputum Culture [Culture,Sputum with Gram Stain] [RM] Routine 08/02/18 08:22 Cytology [PTH] Routine 08/02/18 08:39 AFB Culture, Respiratory [TB] Routine Fungal Culture [MYC] Routine 08/02/18 08:42 Culture,Respiratory [RM] Routine Date of Encounter: 08/02/18 - Discharge Diagnosis (1) COPD exacerbation Status: Resolved (2) HTN (hypertension) Status: Chronic Qualifiers: Hypertension type: essential hypertension Qualified Code(s): I10 - Essential (primary) hypertension (3) Former tobacco use Priority: Secondary Status: Chronic (4) Hyponatremia Status: Chronic (5) Chronic bronchitis Status: Chronic Qualifiers: Chronic bronchitis type: mucopurulent Qualified Code(s): J41.1 - Mucopurulent chronic bronchitis Hospital course: In addition to above hospital course it should be noted that BP was elevated after procedure on day of dc. As d/w pt nursing repeat BP prior to dc 130/80s and will be updated in [facility] as not previously documented. He has been on room air without difficulty and does not require o2 eval for home. Pulm followed him for AECOPD, bronchiectasis and mucous plugging. Washings from bronch will be followed up by pulm at outpt appt, he should complete addl one week of doxy on dc, steroid taper to complete two weeks and fu in pulm office in 1-2 weeks. Discharge discussed with: patient - Time Spent with Patient Total time spent providing and/or coordinating discharge services: Less than 30 minutes Date of admission: 07/29/18 17:35 Primary care physician: Mehrdad Diego MD Consults: 07/29/18 18:12 Consult to Nurse Navigator [CONS] Routine Comment: 07/30/18 10:15 Consult to Pulmonology [CONS] Routine Consulting Provider: [facility] Reason for Consult: COPD. Mucus plugging - has had to have bronch in past. Call Completed: Yes 07/30/18 12:36 Consult to Respiratory Therapy [CONS] Routine Reason for Consult: needs flutter valve Call Completed: Yes - Constitutional Vitals: Temp Pulse Resp BP Pulse Ox 97.9 F 82 16 173/102 100 08/02/18 11:34 08/02/18 11:34 08/02/18 11:34 08/02/18 11:34 08/02/18 11:34 - Patient Status Overall status at discharge: patient is progressing back to baseline - Diet and Activity Activity: increase activity as tolerated Diet: advance to your usual diet - Attending Attestation The history, physical exam, and medical decision making was performed by the medical student Louis either while I was physically present and actively involved or I personally re-performed the exam and medical decision making. I have verified the accuracy of the medical student's documentation with regards to the history, physical exam findings, and medical decision making. Mr Low was admitted for AECOPD and mucuous plugging. underwent bronch this morning with identifiable mucuous plugging and underwent bronchoalveolar lavage. He is feeling back to baseline and stable to dc to home today to complete oral abx and steroid course with close outpt pulm fu in place. wake, pleasant, no sob, cough, fevers or chills. Denies wheezing or orthopnea. eager for dc to home. no cardona, cp, vision changes with bp previously elevated with procedure. gen- alert, awake,appears stated age eyes- pupils equal round cv- reg rate and rhythm, normal s1,s2, no murmurs appreciated, no le edema lungs- no rhonchi or crackles, + scattered exp wheezes, normal resp effort abd- soft, non tender, non distended neuro- AAOx3, CN grossly intact AECOPD Mucuous Plugging -pulm followed, s/p bronch 08/02 with BAL and studies pending to be fu outpt with pulm, o2 sats stable on room air, pulml rec for one addl week doxy BID, steroid taper to complete 2 weeks and fu in 1-2 weeks with pulm outpt HTN- single elevated BP post procedure, i have personally d/w pt RN and repeat Bp prior to dc 130/80s, he may cont home meds on dc, outpt fu with pcp for further monitoring/management Chronic hyponatremia, uk etiology- no neuro or cognitive deficits, fu with pcp outpt dc to home with pcp and pulm fu time spent on discharge- 25 minutes
[2018-08-02] MEDS: Aspirin Enteric Coated 81 MG Tablet PO SCH (10:07)
[2018-08-02] MEDS: hydroCHLOROthiazide 25 MG TABLET PO SCH (10:08)
[2018-08-02] MEDS: MethylPREDNISolone 40 MG/ML VIAL IVP SCH (10:08)
[2018-08-02 11:35] VITALS: BP 173/102
[2018-08-02 12:34] LABS: Appearance of Body Fluid Clear (Clear); Source of Body Fluid Right Uppper Lobe Lu; Volume of Body Fluid 12 mL
--- NOTE | 2018-08-02 19:09 | Electrocardiograph Report ---
[address] [id number] Test Date: 2018-07-30 Pat Name: Cristina Sierra Department: 113 Room: [facility] Gender: M Manager Strategic: : 1955 Requested By: Jarrod Pacheco Order Number: [id number] Reading MD: Lydia Osorio Measurements Intervals [place] Rate: 106 P: 71 WA: 183 QRS: 68 QRSD: 93 T: 66 QT: 303 QTc: 365 Interpretive Statements SINUS TACHYCARDIA ABNORMAL RHYTHM ECG Electronically Signed On 08-02-2018 19:08:06 EST by Lydia Osorio
== END 2018-08-02 13:15 | disposition home or self-care (01) ==
LOC: EMEROOARM 13:01 → 3BNU 13:01 → SUATTDRO 17:35 → 3BNU 18:09
PROVIDERS: ADMIT Internal Medicine; ATTEND Internal Medicine